=== PATIENT | female | born 1975 | race Caucasian/White ===

== ENCOUNTER → 2020-02-05 09:25 | Outpatient (BNVA) | payer OTHER, SELFPAY | PROVIDERS: PCP Internal Medicine; Referring Provider Internal Medicine; Visit Provider Dietitian, Registered | DX: Z76.89 Persons encountering health services in other specified circumstances (principal) ==

== ENCOUNTER → 2020-03-09 08:28 | Outpatient (BNVA) | payer OTHER, SELFPAY | PROVIDERS: PCP Internal Medicine; Visit Provider Physician Assistant | DX: Z76.89 Persons encountering health services in other specified circumstances (principal) ==

== ENCOUNTER 2020-05-19 07:43 | Outpatient (REF) | payer OTHER, SELFPAY ==
--- NOTE | 2020-05-19 07:47 | MM_ITS ---
EXAMINATION: MM SCREENING DIGITAL BREAST TOMOSYNTHESIS, BILATERAL CLINICAL INFORMATION: Screening. Asymptomatic. Family history breast cancer, mother. The lifetime risk of breast cancer based on the Tyrer-Cuzick Model is 21%. COMPARISON: Mammography: 03/19/2019, baseline. TECHNIQUE: Digital breast tomosynthesis is performed in both the craniocaudal and mediolateral oblique views along with computer-aided detection (CAD). Synthesized 2D images are generated from the tomosynthesis. FINDINGS: There are scattered areas of fibroglandular density (ACR BI-RADS breast composition Category b). There are no significant masses, abnormal calcifications, or other abnormalities. Parenchymal pattern is similar to prior exam. MM/MM tomosynthesis screening BI IMPRESSION: No mammographic evidence of malignancy. ASSESSMENT: BI-RADS 1: Negative RECOMMENDATION: 1. Routine annual mammography screening. 2. The lifetime risk of breast cancer based on the Tyrer-Cuzick Model is 21%. Additional annual adjunct screening with breast MRI may be of benefit in women with a risk score of 20% or greater. This patient's information was entered into a reminder system with a target due date for their next mammogram.
== END 2020-05-19 07:44 | disposition home or self-care (01) ==
LOC: HO.MAMMO 07:43
PROVIDERS: PCP Internal Medicine; Visit Provider Internal Medicine
DX: Z12.31 Encounter for screening mammogram for malignant neoplasm of breast (principal)
CPT/HCPCS: 77063; 77067

== ENCOUNTER 2020-06-08 11:26 | Outpatient (REF) | payer OTHER, SELFPAY ==
--- NOTE | 2020-06-08 | US_ITS ---
EXAMINATION: US THYROID CLINICAL INFORMATION: Nontoxic multinodular goiter. Follow up nodules. COMPARISON: Ultrasound soft tissue head/neck thyroid dated 06/10/2019 and 06/19/2018. TECHNIQUE: Linear transducer grayscale and color Doppler examination with attention to the region of the thyroid. FINDINGS: SIZE: Measurements of the thyroid lobes and nodules are given in sagittal, anteroposterior and transverse dimensions respectively. Right Thyroid Lobe: 4.9 x 2.1 x 1.8 cm, volume 9.5 mL. Previously 5.3 x 1.9 x 1.8 cm, volume 9.4 mL. Parenchyma: The gland echotexture is homogeneous. Thyroid vascularity is normal. Left Thyroid Lobe: 5.8 x 1.9 x 1.9 cm, volume 10.6 mL. Previously 5.6 x 2.1 x 1.8 cm, volume 11.3 mL. Parenchyma: The gland echotexture is homogeneous. Thyroid vascularity is normal. Isthmus: 0.5 cm in maximum AP dimension. Previously 0.5 cm. Estimated total number of nodules greater than or equal to 1 cm: 2. [facility] nodules are described as follows: 1. Location: Left superior. Size: 1.0 x 0.7 x 1.0 cm, volume 0.4 mL. Previously: 0.7 x 0.6 x 0.7 cm, volume of 0.2 mL. Nodule characteristics: Composition: Solid (2). Echogenicity: Hypoechoic (2). Shape: Not taller than wide (0). Margins: Smooth (0). Echogenic Foci: None (0). ACR TI-RADS total points: 4 ACR TI-RADS category: 4 Significant change in size (>/= 20% in 2 dimensions and minimal increase of 2 mm): Yes Change in features: No Change in ACR TI-RADS risk category: No 2. Location: Left mid. Size: 1.0 x 0.8 x 0.7 cm, volume 0.3 mL. Previously: 0.9 x 0.6 x 0.7 cm, volume 0.2 mL. Nodule characteristics: Composition: Solid (2). Echogenicity: Hyperechoic (1). Shape: Not taller than wide (0). Margins: Irregular (2). Echogenic Foci: Macrocalcifications (1). ACR TI-RADS total points: 6 ACR TI-RADS category: 4 Significant change in size (>/= 20% in 2 dimensions and minimal increase of 2 mm): No Change in features: No Change in ACR TI-RADS risk category: No 3. Location: Left mid. Size: 0.8 x 0.5 x 0.4 cm, volume 0.1 mL. Previously: 0.8 x 0.4 x 0.5 cm, volume 0.1 mL. Nodule characteristics: Composition: Solid (2). Echogenicity: Hyperechoic (1). Shape: Not taller than wide (0). Margins: Irregular (2). Echogenic Foci: Macrocalcifications (1). ACR TI-RADS total points: 6 ACR TI-RADS category: 4 Significant change in size (>/= 20% in 2 dimensions and minimal increase of 2 mm): No Change in features: No Change in ACR TI-RADS risk category: No NODES: No lymphadenopathy is seen in the tissue surrounding the thyroid gland. US/US thyroid IMPRESSION: Enlarged thyroid gland. There is interval increase in size in the hypoechoic nodule in the superior left lobe. The 2 calcified nodules in the left mid lobe do not appear changed. ACR TI-RADS RECOMMENDATIONS: Ultrasound-guided fine-needle aspiration, followup ultrasound, no further follow up. * TR1 (0 point) and TR 2 (2 points): No FNA or follow up * TR3 (3 points): FNA if more than or equal to 2.5 cm in maximum dimension, follow up in 1, 3 and 5 years if 1.5 to 2.4 cm in maximum dimension. * TR 4 (4-6 points): FNA if more than or equal to 1.5 cm in maximum dimension, follow up in 1, 2, 3 and 5 years if 1 to 1.4 cm in maximum dimension. * TR 5 (more than or equal to 7 points): FNA if more than or equal to 1 cm in maximum dimension, follow up every year for 5 years if 0.5 to 0.9 cm in maximum dimension. TR3, TR4 or TR5 nodules that are below the size threshold for follow up receive no follow up.
== END 2020-06-08 11:27 | disposition home or self-care (01) ==
LOC: HO.US 11:26
PROVIDERS: Visit Provider Internal Medicine Endocrinology, Diabetes & Metabolism
DX: E04.2 Nontoxic multinodular goiter (principal)
CPT/HCPCS: 76536

== ENCOUNTER 2020-07-26 15:48 | Outpatient (REF) | payer OTHER, SELFPAY ==
[2020-07-26 17:48] LABS: Free T4 (Free Thyroxine) 1.12 ng/dL (0.71-1.85); Thyroid Stimulating Hormone 0.77 uIU/mL (0.32-4.0)
== END 2020-07-26 15:49 | disposition home or self-care (01) ==
LOC: HO.LAB 15:48
PROVIDERS: PCP Internal Medicine; Visit Provider Internal Medicine Endocrinology, Diabetes & Metabolism
DX: E03.8 Other specified hypothyroidism (principal)
CPT/HCPCS: 36415; 84439; 84443

== ENCOUNTER → 2020-07-29 07:29 | Outpatient (BNVA) | payer OTHER, SELFPAY | PROVIDERS: PCP Internal Medicine; Visit Provider Internal Medicine Endocrinology, Diabetes & Metabolism ==

== ENCOUNTER 2020-09-27 07:39 | Outpatient (REF) | payer OTHER, SELFPAY ==
[2020-09-27 07:58] LABS: COVID-19 Test Negative (Negative)
== END 2020-09-27 07:40 | disposition home or self-care (01) ==
LOC: HO.EMPCOV 07:39
PROVIDERS: Visit Provider Internal Medicine
DX: Z20.822 Contact with and (suspected) exposure to COVID-19 (principal)
CPT/HCPCS: 36415; 87635; C9803

== ENCOUNTER → 2020-12-26 07:56 | Outpatient (BNVA) | payer OTHER, SELFPAY | PROVIDERS: PCP Internal Medicine; Visit Provider Advanced Practice Midwife ==

== ENCOUNTER 2021-04-14 14:58 | Outpatient (REF) | payer OTHER, SELFPAY ==
[2021-04-14 16:10] LABS: Free T4 (Free Thyroxine) 1.29 ng/dL (0.71-1.85); Thyroid Stimulating Hormone 0.67 uIU/mL (0.32-4.0)
== END 2021-04-14 14:59 | disposition home or self-care (01) ==
LOC: HO.LAB 14:58
PROVIDERS: PCP Internal Medicine; Visit Provider Internal Medicine Endocrinology, Diabetes & Metabolism
DX: E03.8 Other specified hypothyroidism (principal); E04.2 Nontoxic multinodular goiter; E06.3 Autoimmune thyroiditis
CPT/HCPCS: 36415; 84439; 84443

== ENCOUNTER 2021-05-11 12:52 | Outpatient (REF) | payer OTHER, SELFPAY ==
--- NOTE | ~2021-05-11 | US_ITS ---
EXAMINATION: US THYROID CLINICAL INFORMATION: Nontoxic multinodular goiter. COMPARISON: Ultrasound soft tissue head/neck thyroid dated 06/08/2020 and 06/10/2019. TECHNIQUE: Linear transducer grayscale and color Doppler examination with attention to the region of the thyroid. FINDINGS: SIZE: Measurements of the thyroid lobes and nodules are given in sagittal, anteroposterior and transverse dimensions respectively. Right Thyroid Lobe: 5.4 x 1.7 x 1.7 cm, volume 8.2 mL. Previously 4.9 x 2.1 x 1.8 cm, volume 9.5 mL. Parenchyma: The gland echotexture is homogeneous. Thyroid vascularity is normal. Left Thyroid Lobe: 5.1 x 1.7 x 1.7 cm, volume 7.6 mL. Previously 5.8 x 1.9 x 1.9 cm, volume 10.6 mL. Parenchyma: The gland echotexture is homogeneous. Thyroid vascularity is normal. Isthmus: 0.2 cm in maximum AP dimension. Previously 0.5 cm. Estimated total number of nodules greater than or equal to 1 cm: 1. Suppression Crew Leader nodules are described as follows: 1. Location: Left superior. Size: 1.1 x 0.8 x 0.9 cm, volume 0.4 mL. Previously: 1.0 x 0.7 x 1.0 cm, volume 0.4 mL. Nodule characteristics: Composition: Solid (2). Echogenicity: Hypoechoic (2). Shape: Not taller than wide (0). Margins: Ill-defined (0). Echogenic Foci: None (0). ACR TI-RADS total points: 4 Previous: 4 ACR TI-RADS category: 4 Previous: 4 Significant change in size (>/= 20% in 2 dimensions and minimal increase of 2 mm or 50% or greater increase in volume): No Change in features: No Change in ACR TI-RADS risk category: No 2. Location: Left mid. Size: 1.0 x 0.6 x 0.8 cm, volume 0.3 mL. Previously: 1.0 x 0.8 x 0.7 cm, volume 0.3 mL. Nodule characteristics: Composition: Solid (2). Echogenicity: Hyperechoic (1). Shape: Not taller than wide (0). Margins: Irregular (2). Echogenic Foci: Macrocalcifications (1). ACR TI-RADS total points: 6 Previous: 6 ACR TI-RADS category: 4 Previous: 4 Significant change in size (>/= 20% in 2 dimensions and minimal increase of 2 mm or 50% or greater increase in volume): No Change in features: No Change in ACR TI-RADS risk category: No 3. Location: Left inferior. Size: 0.6 x 0.5 x 0.5 cm, volume 0.1 mL. Previously: 0.8 x 0.5 x 0.4 cm. Nodules 3 and 4 were measured as one nodule on prior exam. Nodule characteristics: Composition: Solid (2). Echogenicity: Hyperechoic (1). Shape: Not taller than wide (0). Margins: Irregular (2). Echogenic Foci: Macrocalcifications (1). ACR TI-RADS total points: 6 ACR TI-RADS category: 4 Significant change in size (>/= 20% in 2 dimensions and minimal increase of 2 mm or 50% or greater increase in volume): No Change in features: No Change in ACR TI-RADS risk category: No 4. Location: Left inferior. Size: 0.4 x 0.3 x 0.4 cm, volume 0.03 mL. Previously: 0.8 x 0.5 x 0.4 cm. Nodules 3 and 4 measured as one nodule on prior exam. Nodule characteristics: Composition: Solid (2). Echogenicity: Hyperechoic (1). Shape: Not taller than wide (0). Margins: Ill-defined (0). Echogenic Foci: Macrocalcifications (1). ACR TI-RADS total points: 4 ACR TI-RADS category: 4 Significant change in size (>/= 20% in 2 dimensions and minimal increase of 2 mm or 50% or greater increase in volume): No Change in features: No Change in ACR TI-RADS risk category: No NODES: No lymphadenopathy is seen in the tissue surrounding the thyroid gland. US/US thyroid IMPRESSION: Stable appearance to the left thyroid nodules from most recent exam June 2020. ACR TI-RADS RECOMMENDATION REFERENCE: Ultrasound-guided fine-needle aspiration, followup ultrasound, no further follow up. * TR1 (0 point) and TR 2 (2 points): No FNA or follow up * TR3 (3 points): FNA if more than or equal to 2.5 cm in maximum dimension, followup ultrasound in 1, 3 and 5 years if 1.5 to 2.4 cm in maximum dimension. * TR4 (4-6 points): FNA if more than or equal to 1.5 cm in maximum dimension, followup ultrasound in 1, 2, 3 and 5 years if 1 to 1.4 cm in maximum dimension. * TR5 (more than or equal to 7 points): FNA if more than or equal to 1 cm in maximum dimension, followup ultrasound every year for 5 years if 0.5 to 0.9 cm in maximum dimension. * TR3, TR4 or TR5 nodules that are below the size threshold for follow up receive no follow up.
== END 2021-05-11 12:53 | disposition home or self-care (01) ==
LOC: HO.US 12:52
PROVIDERS: Visit Provider Internal Medicine Endocrinology, Diabetes & Metabolism
DX: E04.2 Nontoxic multinodular goiter (principal)
CPT/HCPCS: 76536

== ENCOUNTER → 2021-06-05 08:58 | Outpatient (BNVA) | payer OTHER, SELFPAY | PROVIDERS: PCP Internal Medicine; Visit Provider Orthopaedic Surgery ==

== ENCOUNTER → 2021-06-15 07:26 | Outpatient (BNVA) | payer OTHER, SELFPAY | PROVIDERS: PCP Internal Medicine; Visit Provider Internal Medicine ==

== ENCOUNTER 2021-06-21 08:00 | Outpatient (REF) | payer OTHER, SELFPAY ==
--- NOTE | ~2021-06-21 | MR_ITS ---
EXAMINATION: MR BRAIN WITHOUT AND WITH CONTRAST CLINICAL INFORMATION: Hypopituitarism. COMPARISON: There are no prior studies available comparison. TECHNIQUE: Multiplanar, multisequence MRI of the brain was obtained before and after the intravenous administration of 5 mL Gadavist. FINDINGS: No abnormal focus of decreased differential enhancement is seen within the pituitary gland. The pituitary gland parenchyma appears relatively thin. The infundibulum measures approximately 3.4 mm AP, just superior to the pituitary gland, which is mildly thickened. The infundibulum is in the midline. The cavernous sinuses opacify symmetrically. The internal carotid artery flow-voids are maintained. The optic chiasm is normal. No suprasellar soft tissue abnormality is seen. The sella turcica is normal. No diffusion abnormalities are identified to suggest an acute or subacute infarct. No mass effect or midline shift is seen. The ventricles are normal in size. Brain parenchymal signal is unremarkable. No extra-axial fluid collections are seen. The brainstem appears normal. On postcontrast imaging, there is no abnormal parenchymal or leptomeningeal enhancement. There is no evidence of acute hemorrhage. The cerebellar tonsillar tips extend approximately 4.4 mm below the level of foramen magnum, but have normal contours bilaterally. Marrow signal and midline structures are normal. The major intracranial flow-voids at the level of the mo[place] of [place] are preserved. There is a small cyst in the high nasopharynx posteriorly on the right. The dural venous sinus flow-voids are maintained. The mastoid air cells and the paranasal sinuses are well-aerated. The nasal septum is significantly deviated to the left. MR/MR head/brain wo/w con IMPRESSION: 1. There are no acute bleeds or infarcts. There are no intracranial masses or areas of abnormal enhancement. The cerebellar tonsillar tips extend 4.4 mm below the level of foramen magnum but have contours bilaterally. 2. The pituitary gland appears relatively thin. The infundibulum is mildly thickened, which is nonspecific and may be consistent with inflammation or an infiltrative process.
== END 2021-06-21 08:01 | disposition home or self-care (01) ==
LOC: HO.MRI 08:00
PROVIDERS: Visit Provider Internal Medicine
DX: E23.0 Hypopituitarism (principal)
CPT/HCPCS: 70553; A9585

== ENCOUNTER 2021-07-01 11:10 | Outpatient (REF) | payer OTHER, SELFPAY ==
[2021-07-01 11:31] LABS: Appearance Urine HAZY; Color Urine YELLOW; Glucose Urine UA NEG (NEG); Leukocyte Esterase Urine 1+ (NEG); Nitrite Urine POS (NEG); Specific Gravity - Urine 1.025 (1.005-1.025); UACC Culture Trigger YES; Urine Blood 1+ (NEG); Urine Ketones NEG (NEG); Urine Protein TRACE MG/DL (NEG-TRACE)
[2021-07-01 11:44] LABS: Bacteria Urine 3+ /LPF; Mucus Urine TRACE /LPF; Squamous Epithelial Cell Urine TRACE /LPF; WBC Urine 50-75 /HPF (0-4)
== END 2021-07-01 11:11 | disposition home or self-care (01) ==
LOC: HO.LNP 11:10
PROVIDERS: Visit Provider Physician Assistant Medical
DX: R30.0 Dysuria (principal)
CPT/HCPCS: 81001; 87086; 87088; 87186

== ENCOUNTER 2021-07-05 12:06 | Outpatient (REF) | payer OTHER, SELFPAY ==
--- NOTE | ~2021-07-05 | MM_ITS ---
EXAMINATION: BONE DENSITOMETRY CLINICAL INDICATION: Long-term, current, use of 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. Age 46. COMPARISON: None (current study represents initial baseline exam). TECHNIQUE: Using a [employer]OT[employer] DXA System (software version: 13.1) manufactured by [employer], dual-energy x-ray absorptiometry was performed of the lumbar spine, left hip, and left forearm radius 33%. The images are of good technical quality. Based on ISCD (International Society for Clinical Densitometry) standards of reporting, Z-scores instead of T-scores are reported in this premenopausal woman. Summary results are attached. FINDINGS: AP SPINE L1-L2 (excluding L3 and L4): The data of L1-L4 has been changed to exclude the L3 and L4 vertebral bodies, because probable mild degenerative changes at these levels may cause overestimation of lumbar spine density. BMD 1.094 g/cm2, T-score -0.6, Z-score -1.8, Z-score within expected range for age. LEFT FEMUR, NECK: BMD 0.845 g/cm2, T-score -1.4, Z-score -1.6, Z-score within expected range for age. LEFT FEMUR, TOTAL: BMD 0.976 g/cm2, T-score -0.3, Z-score -0.8, Z-score within expected range for age. LEFT FOREARM RADIUS 33%: BMD 0.882 g/cm2, T-score 0.1, Z-score 0.1, Z-score within expected range for age. IDENTIFIED RISK FACTORS: Secondary osteoporosis. HISTORY OF FRACTURE: None listed. MEDICATIONS: Calcium supplements or multivitamin, vitamin D, ERT/SERMS. MM/XR DEXA appendicular skeleton IMPRESSION: 1. DIAGNOSIS: Based on the lowest Z-score value of -1.8 in the lumbar spine, the patient's bone density is within the expected range for age. 2. 10-YEAR FRACTURE RISK PREDICTION, FRAX: Not performed in this perimenopausal patient. 3. Treatment Recommendations: NOF guidelines recommend consideration for treatment in postmenopausal women and men age 50 and older presenting with the following: -A hip or vertebral (clinical or morphometric) fracture. -T-score less than or equal to -2.5 at the femoral neck or spine after appropriate evaluation to exclude secondary causes. -Low bone mass at the hip or spine and a 10-year fracture probability by FRAX of greater than or equal to 3% for hip fracture or greater than or equal to 20% for major osteoporotic fracture based on the [place] adapted WHO algorithm. 4. Other Recommendations: All treatment decisions require clinical judgment and consideration of individual patient factors, including patient preferences, comorbidities, previous drug use, risk factors not captured in the FRAX model (e.g. frailty, falls, vitamin D deficiency, increased bone turnover, interval significant decline in bone density) and possible under or overestimation of fracture risk by FRAX. FUTURE SCAN RECOMMENDATION: People with diagnosed cases of osteoporosis or at high risk for fracture should have regular bone mineral density tests. For patients eligible for Medicare, routine testing is allowed once every 2 years. The testing frequency can be increased to one year for patients who have rapidly progressing disease, those who are receiving or discontinuing medical therapy to restore bone mass, or have additional risk factors.
--- NOTE | ~2021-07-05 | MM_ITS ---
EXAMINATION: MM SCREENING DIGITAL BREAST TOMOSYNTHESIS, BILATERAL CLINICAL INFORMATION: Screening. Asymptomatic. Family history breast cancer, mother. The lifetime risk of breast cancer based on the Tyrer-Cuzick Model is 23%. COMPARISON: Mammography: 05/19/2020, 03/19/2019 (baseline) TECHNIQUE: Digital breast tomosynthesis is performed in both the craniocaudal and mediolateral oblique views along with computer-aided detection (CAD). Synthesized 2D images are generated from the tomosynthesis. FINDINGS: There are scattered areas of fibroglandular density (ACR BI-RADS breast composition Category b). Right breast has macrolobulated nodule 0.9 x 0.6 cm anterior 4:00 position with smooth margins representing change from prior studies, possibly a cyst. Patient will be recalled for additional imaging to further characterize. Remainder right breast is unremarkable. The left breast shows no interval mass or architectural abnormality. Neither breast shows abnormal calcifications. The axilla and skin contours are unremarkable. MM/MM tomosynthesis screening BI IMPRESSION: 1. Right: Smooth nodule anterior 4:00 position 0.9 cm, possibly a cyst. 2. Left: No mammographic evidence of malignancy. ASSESSMENT: BI-RADS 0: Incomplete - Need Additional Imaging Evaluation RECOMMENDATION: 1. Targeted ultrasound right breast. 2. Radiology department staff will contact the patient for additional imaging. This patient's information was entered into a reminder system with a target due date for their next mammogram.
== END 2021-07-05 12:07 | disposition home or self-care (01) ==
LOC: HO.MAMMO 12:06
PROVIDERS: Visit Provider Internal Medicine
DX: Z12.31 Encounter for screening mammogram for malignant neoplasm of breast (principal); Z13.820 Encounter for screening for osteoporosis; Z79.3 Long term (current) use of 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
CPT/HCPCS: 77063; 77067; 77081

== ENCOUNTER 2021-07-07 14:22 | Outpatient (REF) | payer OTHER, SELFPAY ==
--- NOTE | ~2021-07-07 | US_ITS ---
EXAMINATION: US DIAGNOSTIC ULTRASOUND BREAST, RIGHT CLINICAL INFORMATION: Recall from screening for smooth macrolobulated nodule anterior 4:00 right breast measuring 0.9 x 0.6 cm. Family history breast cancer, mother. TC score 23%. COMPARISON: Mammography 07/05/2021. TECHNIQUE: Ultrasound right breast is targeted to the medial breast. Grayscale imaging and color Doppler are performed without and with harmonics. FINDINGS: There is a complicated cyst 4:00 position 4 cm from nipple corresponding to finding on mammography and measuring 0.8 x 0.6 x 0.6 cm. There are avascular internal septations. No peripheral or internal color flow. No solid mass or architectural abnormality or focal duct ectasia. Results are discussed with the patient at time of visit. US/US breast RT limited IMPRESSION: Complicated cyst anterior medial breast 0.8 cm with avascular internal septations. ASSESSMENT: BI-RADS 3: Probably Benign RECOMMENDATION: 1. Targeted right breast ultrasound in 6 months. 2. The lifetime risk of breast cancer based on the Tyrer-Cuzick Model is 23%. Additional annual adjunct screening with breast MRI may be of benefit in women with a risk score of 20% or greater. This patient's information was entered into a reminder system with a target due date for their next mammogram.
== END 2021-07-07 14:23 | disposition home or self-care (01) ==
LOC: HO.MAMMO 14:22
PROVIDERS: Visit Provider Internal Medicine
DX: N63.14 Unspecified lump in the right breast, lower inner quadrant (principal)
CPT/HCPCS: 76642

== ENCOUNTER 2021-07-27 08:00 | Outpatient (RCR) | payer OTHER, SELFPAY ==
--- NOTE | 2021-06-06 11:58 | MHC.PT.EP ---
[facility] [place] Office [place] Office [place] Office [address] [place] [address] [phone] F: [phone] F: [phone] F: [phone] F: [phone] Physical Therapy Plan of Care Date of Evaluation: Date of Surgery: NA Diagnosis: Impingement syndrome of R shoulder Assessment: Arlen is a 46 year old female with a past h/o of R shoulder pain was referred to PT for impingement syndrome of R shoulder . She was in PT about 2 years back and had 90% resolution of pain. Her symptoms however have returned. She denies any trauma or falls. On PT examination she presents with intermittent pain of 8/10 present with carrying heavy weights, moving shoulder over head, R SL and reaching across shoulder, decreased R shoulder ROM, decreased muscle strength, TTP over R AC joint, bicep and supraspinatus tendon, and altered posture. Due to these impairments she has difficulty performing her ADLS and caring for her 3 year old son. She would benefit from skilled PT to address the aforementioned impairments and improve tolerance to functional activities. Frequency and Duration: The patient will be seen 2/week for 5 weeks. Short Term Goals: 1. Pt will have 50% decrease in pain which will enable her to sleep on R side through the night in 2 weeks. 2. Pt will be able to move her shoulder through all planes of motion without pain which will enable her to dress her upper body without pain in 3 weeks. Detention Goals: 1. Pt will demonstrate an increase in muscle strength by 1 grade which will enable her to carry heavy weights and pick her son up without pain in 4 weeks. 2. Pt will be independent with [facility] for symptom management and maintenance following d/c in 5 weeks. Treatment Plan: Modalities to reduce pain, spasms and effusion. Manual therapy to restore motion and function. Therapeutic exercise to improve strength and flexibility. Neuromuscular re-education for posture and balance. Therapeutic activities to return to functional activities of daily living. Electronically signed by: Christina Courtney PT DPT Please sign and return to therapist. Thank you for your referral.
--- NOTE | 2021-07-27 08:49 | MHC.PT.DC ---
[facility] [place] Office [place] Office [place] Office [address] [place] [address] [phone] F: [phone] F: [phone] F: [phone] F: [phone] Physical Therapy Discharge Report Diagnosis: Impingement syndrome of R shoulder Date of Surgery: NA Date of Evaluation: 06/06/21 Date of Discharge: 07/27/21 Treatments to Date: 9 Cancellations to Date: 0 No Shows to Date: 0 Discharge Status: Achieved Goals Improved Function Discharge Summary: Nai continued to arrive with no pain. She has returned to PLOF. She has achieved all goals set for her. She is therefore being d/c from therapy today. Electronically signed by: Christina Courtney PT DPT Please sign and return to therapist. Thank you for your referral.
== END 2021-07-27 08:50 | disposition home or self-care (01) ==
LOC: HO.PT 08:00
PROVIDERS: PCP Internal Medicine; Visit Provider Orthopaedic Surgery
DX: M75.41 Impingement syndrome of right shoulder (principal)
CPT/HCPCS: 97110; 97140; 97161; 97530

== ENCOUNTER 2021-08-10 07:01 | Outpatient (REF) | payer OTHER, SELFPAY ==
[2021-08-10 08:20] LABS: Alanine Aminotransferase 20 U/L (0-31); Albumin Level 4.1 g/dL (3.5-5.0); Alkaline Phosphatase 59 U/L (39-117); Anion Gap 12 (12-20); Aspartate Amino Transferase 18 U/L (5-31); Bilirubin Total 0.6 mg/dL (0.0-1.0); Blood Urea Nitrogen 17 mg/dL (9-16); Calcium 9.1 mg/dL (8.4-10.2); Carbon Dioxide 24 mmol/L (22-29); Chloride 108 mmol/L (96-108); Cholesterol 212 mg/dL; Estimated Glomerular Filt Rate > 60; Glucose Random 84 mg/dL (60-115); HDL Cholesterol 53 mg/dL; LDL Cholesterol Calculated 144 mg/dl; Potassium 4.6 mmol/L (3.3-5.1); Sodium 139 mmol/L (135-145); Total Protein 7.1 g/dL (6.5-8.0); Triglycerides 75 mg/dL
[2021-08-10 08:44] LABS: Thyroid Stimulating Hormone 0.59 uIU/mL (0.32-4.0)
[2021-08-10 08:52] LABS: Glucose Fasting 84 mg/dL (60-99)
[2021-08-10 09:29] LABS: Glucose 1 Hour 136 mg/dL
[2021-08-10 09:39] LABS: Cortisol Random 16.8 ug/dL
[2021-08-10 10:34] LABS: Glucose 2 Hour 106 mg/dL
[2021-08-10 12:07] LABS: Osmolality, Serum 298 mosm/kg (281-305)
[2021-08-11 08:11] LABS: Follicle Stimulating Hormone <0.7 mIU/mL; Lutenizing Hormone 0.2 mIU/mL; Prolactin 8.6 ng/mL; Sex Hormone Binding Globulin 87 nmol/L (17-124)
[2021-08-11 08:41] LABS: Triiodothyronine T3 Total 155 ng/dL (76-181)
[2021-08-11 08:57] LABS: LDL Cholesterol Direct 147 mg/dL (<100)
[2021-08-11 18:32] LABS: Adrenocorticotropic Hormone 24 pg/mL (6-50)
[2021-08-15 13:11] LABS: IGF-1 (Somatomedin C) 119 ng/mL (52-328); IGF-1 Z Score (Female) -0.4 SD (-2.0 - +2.0)
[2021-08-24 22:17] LABS: Estradiol Free 0.13 pg/mL; Estradiol, Ultrasensitive 9 pg/mL
== END 2021-08-10 07:02 | disposition home or self-care (01) ==
LOC: HO.LAB 07:01
PROVIDERS: PCP Internal Medicine; Visit Provider Internal Medicine
DX: E23.0 Hypopituitarism (principal); E04.2 Nontoxic multinodular goiter; E78.5 Hyperlipidemia, unspecified; E66.9 Obesity, unspecified
CPT/HCPCS: 36415; 80053; 80061; 82024; 82533; 82670; 82681; 83001; 83002; 83721; 83930; 84146; 84270; 84305; 84439; 84443; 84480

== ENCOUNTER 2021-08-29 07:55 | Outpatient (REF) | payer OTHER, SELFPAY ==
--- NOTE | ~2021-08-29 | MR_ITS ---
EXAMINATION: MR BREAST WITHOUT AND WITH CONTRAST, BILATERAL CLINICAL INFORMATION: 46-year-old for high-risk screening, lifetime risk greater than 23% with complicated cyst right breast. COMPARISON: Correlation to mammogram of 07/05/2021 and ultrasound of 07/07/2021. TECHNIQUE: Imaging was performed with a dedicated breast coil. Prior to the administration of contrast, bilateral axial T1- and bilateral axial T2-weighted sequences were obtained. After the uneventful administration of?10 mL of Gadavist, dynamic contrast-enhanced VIBRANT series through the breasts in the axial plane were performed. Subtracted images were performed and reviewed. A delayed sagittal sequence through both breasts was acquired. Additionally, CAD post-processing, including maximum intensity projections, 3-D reconstructions and kinetic analysis, were performed an independent workstation and reviewed by the interpreting radiologist is a portion of this exam. FINDINGS: There is mild background enhancement. LEFT BREAST: No suspicious mass-like or [id number] enhancement. No abnormal skin thickening or nipple retraction. No abnormal architectural distortion. Review of the T2-weighted images demonstrates no fibrocystic changes or dilated ducts. Review of kinetic images reveals no additional findings. RIGHT BREAST: There is an oval T2 bright rim-enhancing mass in the 4 o'clock position 3 cm from the nipple, measuring 0.6 cm. This corresponds to the complicated cyst noted on mammography and ultrasound. There are no areas of mass or non-mass assessment suspicious of malignancy. There are no secondary signs of malignancy such as nipple inversion or duct enhancement. There are no additional findings on T2-weighted imaging or kinetic curve analysis. There is no suspicious internal mammary chain or axillary adenopathy. Limited views of the chest and abdomen are unremarkable. MR/MR breast BI wo/w con IMPRESSION: Right breast with oval T2 bright rim-enhancing mass 4 o'clock 3 cm from the nipple, corresponding to the complicated cyst noted on ultrasound and mammography. No MR findings suspicious of malignancy. ASSESSMENT: LEFT BREAST: BI-RADS 1-Negative. RIGHT BREAST: BI-RADS 2-Benign. RECOMMENDATIONS: A six-month followup right breast ultrasound has been recommended for the complicated cyst. Routine mammographic imaging as per most recent study. MRI as per high-risk protocol.
== END 2021-08-29 07:56 | disposition home or self-care (01) ==
LOC: HO.MRI 07:55
PROVIDERS: Visit Provider Internal Medicine
DX: N63.14 Unspecified lump in the right breast, lower inner quadrant (principal)
CPT/HCPCS: 77049; A9585

== ENCOUNTER → 2021-10-12 08:54 | Outpatient (BNVA) | payer OTHER, SELFPAY | PROVIDERS: PCP Internal Medicine; Visit Provider Dietitian, Registered | DX: E78.5 Hyperlipidemia, unspecified (principal); E66.9 Obesity, unspecified; Z68.41 Body mass index [BMI] 40.0-44.9, adult | CPT/HCPCS: 97802 ==

== ENCOUNTER → 2021-12-13 09:23 | Outpatient (BNVA) | payer OTHER, SELFPAY | PROVIDERS: PCP Internal Medicine; Visit Provider Dietitian, Registered | DX: E66.9 Obesity, unspecified (principal); E78.5 Hyperlipidemia, unspecified | CPT/HCPCS: 97803 ==

== ENCOUNTER 2021-12-14 08:53 | Outpatient (REF) | payer OTHER, SELFPAY ==
--- NOTE | 2021-12-14 09:17 | PM.OP ---
Brief Operative Note Date of Service: 12/14/21 Pre-op diagnosis: Multinodular Thyroid Procedure: EXAMINATION: US THYROID CLINICAL INFORMATION: Multinodular Thyroid COMPARISON: Prior TECHNIQUE: Linear transducer ibanez-scale and color Doppler examination with attention to the region of the thyroid. FINDINGS: SIZE: Measurements of the thyroid lobes and nodules are given in sagittal, anteroposterior and transverse dimensions respectively. Right Thyroid Lobe: 2.0 x 5.6 x 1.8 cm, volume 10.3 mL. Parenchyma: The gland echotexture is diffusely heterogenous. Thyroid vascularity is mildly increased. Left Thyroid Lobe: 2.0 x 6.0 x 2.1 cm, volume 13 mL. Parenchyma: The gland echotexture is diffusely heterogenous. Thyroid vascularity is mildly increased. Isthmus: 0.3 cm in maximum AP dimension. NODES: No lymph nodes were assessed during today's visit. 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 No true thyroid nodules, only pseudonodules, with one macrocalcification present within the L lobe. Surgeon: Niurka Herrera, DO Was an Independent Jeweler used for this Procedure?: No Estimated blood loss (mL): 0
== END 2021-12-14 08:54 | disposition home or self-care (01) ==
LOC: HO.US 08:53
PROVIDERS: Visit Provider Internal Medicine
DX: E04.2 Nontoxic multinodular goiter (principal)
CPT/HCPCS: 76536

== ENCOUNTER 2021-12-29 07:09 | Outpatient (REF) | payer OTHER, SELFPAY ==
[2021-12-29 08:20] LABS: Free T4 (Free Thyroxine) 1.19 ng/dL (0.71-1.85); Thyroid Stimulating Hormone 1.69 uIU/mL (0.32-4.0)
== END 2021-12-29 07:10 | disposition home or self-care (01) ==
LOC: HO.LAB 07:09
PROVIDERS: PCP Internal Medicine; Visit Provider Internal Medicine
DX: E06.3 Autoimmune thyroiditis (principal); E03.8 Other specified hypothyroidism
CPT/HCPCS: 36415; 84439; 84443

== ENCOUNTER 2022-01-09 15:24 | Outpatient (REF) | payer OTHER, SELFPAY ==
--- NOTE | ~2022-01-09 | MM_ITS ---
EXAMINATION: MM DIAGNOSTIC DIGITAL BREAST TOMOSYNTHESIS, RIGHT US DIAGNOSTIC ULTRASOUND BREAST, RIGHT CLINICAL INFORMATION: Short interval follow-up probable benign complicated cyst 4:00 anterior right breast. Family history breast cancer, mother. TC score 29%. COMPARISON: MR breasts 08/29/2021, mammography 07/05/2021 (BI-RADS 0), 05/19/2020, 03/19/2019; targeted right breast ultrasound 07/07/2021. TECHNIQUE: Ultrasound right breast is targeted to the anterior lower inner quadrant. Grayscale imaging and color Doppler are performed without and with harmonics. Digital breast tomosynthesis is performed in both the craniocaudal and mediolateral oblique views along with computer-aided detection (CAD). Synthesized 2D images are generated from the tomosynthesis. FINDINGS: Ultrasound, right: The complicated cyst for follow-up appear decreased in size measuring approximately 6 x 3 mm. There are some fine avascular internal septations. Prior measurement is 8 x 6 mm. There is no interval new cystic or solid mass or architectural abnormality. Mammography, right: There are scattered areas of fibroglandular density (ACR BI-RADS breast composition Category b). The mammography confirms that the finding for follow-up is moderately decreased in size. There is no interval new dominant mass or architectural abnormality or abnormal calcifications. The skin contours are smooth. Results are discussed with the patient at time of visit. Patient is due for routine bilateral mammography in 6 months which will be performed as a diagnostic study. MM/MM tomosynthesis diagnostic RT IMPRESSION: The complicated cyst for follow-up is decreased in size on both ultrasound and mammography. ASSESSMENT: BI-RADS 3: Probably Benign RECOMMENDATION: Diagnostic mammography at time of annual bilateral exam, due in 6 months. This patient's information was entered into a reminder system with a target due date for their next mammogram.
== END 2022-01-09 15:25 | disposition home or self-care (01) ==
LOC: HO.MAMMO 15:24
PROVIDERS: PCP Internal Medicine; Visit Provider Internal Medicine
DX: N63.14 Unspecified lump in the right breast, lower inner quadrant (principal)
CPT/HCPCS: 76642; 77061; 77065

== ENCOUNTER 2022-06-14 07:53 | Outpatient (REF) | payer OTHER, SELFPAY ==
[2022-06-14 09:46] LABS: Alanine Aminotransferase 14 U/L (0-31); Alkaline Phosphatase 58 U/L (39-117); Anion Gap 14 (12-20); Aspartate Amino Transferase 17 U/L (5-31); Bilirubin Total 0.6 mg/dL (0.0-1.0); Blood Urea Nitrogen 14 mg/dL (9-16); Calcium 8.8 mg/dL (8.4-10.2); Carbon Dioxide 24 mmol/L (22-29); Chloride 107 mmol/L (96-108); Estimated Glomerular Filt Rate > 60; Glucose Random 77 mg/dL (60-115); Phosphorus 2.7 mg/dL (2.7-4.5); Potassium 4.5 mmol/L (3.3-5.1); Sodium 140 mmol/L (135-145); Total Protein 6.8 g/dL (6.5-8.0)
[2022-06-14 09:53] LABS: Free T4 (Free Thyroxine) 1.17 ng/dL (0.71-1.85); Thyroid Stimulating Hormone 1.34 uIU/mL (0.32-4.0); Vitamin D 25-OH Total 34.7 ng/mL (>30)
[2022-06-16 03:53] LABS: Triiodothyronine T3 Total 153 ng/dL (76-181)
[2022-06-18 13:14] LABS: Calcium (PTHI) 8.9 mg/dL (8.6-10.2); PTHI 50 pg/mL (16-77)
== END 2022-06-14 07:54 | disposition home or self-care (01) ==
LOC: HO.LAB 07:53
PROVIDERS: PCP Internal Medicine; Visit Provider Internal Medicine
DX: E03.8 Other specified hypothyroidism (principal); E06.3 Autoimmune thyroiditis; M85.80 Other specified disorders of bone density and structure, unspecified site; E55.9 Vitamin D deficiency, unspecified; E04.2 Nontoxic multinodular goiter
CPT/HCPCS: 36415; 80053; 82306; 83970; 84100; 84439; 84443; 84480

== ENCOUNTER → 2022-06-18 09:03 | Outpatient (BNVA) | payer OTHER, SELFPAY | PROVIDERS: PCP Internal Medicine; Visit Provider Internal Medicine | DX: Z13.89 Encounter for screening for other disorder (principal) ==

== ENCOUNTER 2022-06-22 07:37 | Outpatient (REF) | payer OTHER, SELFPAY ==
[2022-06-22 09:12] LABS: Cholesterol 233 mg/dL; HDL Cholesterol 61 mg/dL; LDL Cholesterol Calculated 154 mg/dl; Triglycerides 94 mg/dL
[2022-06-24 15:23] LABS: LDL Cholesterol Direct 162 mg/dL (<100)
== END 2022-06-22 07:38 | disposition home or self-care (01) ==
LOC: HO.LAB 07:37
PROVIDERS: PCP Internal Medicine; Visit Provider Internal Medicine
DX: E78.5 Hyperlipidemia, unspecified (principal)
CPT/HCPCS: 36415; 80061; 83721

== ENCOUNTER 2022-06-28 13:42 | Outpatient (REF) | payer OTHER, SELFPAY ==
--- NOTE | 2022-06-28 08:15 | EMG_ITS ---
Bilateral median and ulnar motor and sensory studies were performed. Bilateral radial sensory studies were performed and paraspinal muscles were tested with a needle. IMPRESSION: 1. Mild bilateral median neuropathy across carpal tunnel. 2. Mild bilateral ulnar neuropathy across cubital tunnel. 3. Left Telly-Victor M anastomosis, a normal variant. MD ARAM Glasgow/DEVYN / [id number]
== END 2022-06-28 13:43 | disposition home or self-care (01) ==
LOC: HO.NEURO 13:42
PROVIDERS: PCP Internal Medicine; Visit Provider Orthopaedic Surgery
DX: R20.2 Paresthesia of skin (principal); R20.0 Anesthesia of skin
CPT/HCPCS: 95886; 95911

== ENCOUNTER → 2022-07-18 09:25 | Outpatient (BNVA) | payer OTHER, SELFPAY | PROVIDERS: PCP Internal Medicine; Visit Provider Orthopaedic Surgery | DX: Z13.89 Encounter for screening for other disorder (principal) ==

== ENCOUNTER 2022-07-31 10:53 | Outpatient (REF) | payer OTHER, SELFPAY ==
--- NOTE | ~2022-07-31 | MM_ITS ---
EXAMINATION: MM DIAGNOSTIC DIGITAL BREAST TOMOSYNTHESIS, BILATERAL CLINICAL INFORMATION: Due for yearly. Also follow-up probable benign complicated cyst 4:00 anterior right breast, decreased on prior follow-up exam. Family history breast cancer, mother, paternal aunt. The lifetime risk of breast cancer based on the Tyrer-Cuzick Model is 24%. COMPARISON: Bilateral mammography exams, most recent 01/09/2022, bilateral breast MRI for 2621, right breast ultrasound 01/09/2022, 07/07/2021. TECHNIQUE: Digital breast tomosynthesis is performed in both the craniocaudal and mediolateral oblique views along with computer-aided detection (CAD). Synthesized 2D images are generated from the tomosynthesis. FINDINGS: There are scattered areas of fibroglandular density (ACR BI-RADS breast composition Category b). The nodularity for follow-up anterior 4:00 right breast is no longer demonstrated. Neither breast shows significant mass or architectural abnormality or developing density. No abnormal calcifications. The axilla and skin contours are unremarkable. Results are discussed with the patient at time of visit. MM/MM tomosynthesis diagnostic BI IMPRESSION: -No mammographic evidence of malignancy. ASSESSMENT: BI-RADS 2: Benign RECOMMENDATION: -Routine annual mammography screening. -The lifetime risk of breast cancer based on the Tyrer-Cuzick Model is 24%. Additional annual adjunct screening with breast MRI may be of benefit in women with a risk score of 20% or greater. This patient's information was entered into a reminder system with a target due date for their next mammogram.
== END 2022-07-31 10:54 | disposition home or self-care (01) ==
LOC: HO.MAMMO 10:53
PROVIDERS: PCP Internal Medicine; Visit Provider Internal Medicine
DX: N60.01 Solitary cyst of right breast (principal)
CPT/HCPCS: 77062; 77066

== ENCOUNTER 2022-08-16 08:31 | Day surgery (SDC) | payer OTHER, SELFPAY ==
[2022-08-15 13:11] VITALS: BMI 42.1
[2022-08-16 08:43] VITALS: BP 188/41; PULSE 78; RESP 18; TEMP 36.1; O2SAT 98
[2022-08-16 10:53] VITALS: BP 139/83; PULSE 100; RESP 18; O2SAT 99
--- NOTE | 2022-08-16 11:52 | MHC.SHP ---
Pre-Procedural Eval Section A Date of Service: 08/16/22 The patient is an INPATIENT: No Changes since office visit: No Cold of Flu in the past 2 weeks, No New Medical Problems, No Changes in Medication and No Patient answered all questions The History & Physical has been completed within 30 days and I have reviewed it.: Yes Section B Chief Complaint: Carpal tunnel syndrome, left upper limb Allergies: Allergies Allergy/AdvReac Type Severity Reaction Status Date / Time oxycodone Allergy Unknown itchy Verified 07/18/22 09:41 penicillin V Allergy Unknown rash Verified 07/18/22 09:41 Sulfa (Sulfonamide Allergy Unknown rash Verified 07/18/22 09:41 Antibiotics) Plan I have reviewed the history and physical and performed a pertinent physical examination on my patient. No changes have occurred unless specified. Time Spent With Patient Time: Total time managing care of this patient today ____ minutes.
--- NOTE | 2022-08-16 11:53 | W.PM.OPN ---
Operative Note Operative Note Date of Service: 08/16/22 Narrative: Preop diagnosis: 1. left Carpal tunnel syndrome Postop diagnosis: same Procedure: 1. left Carpal tunnel release Surgeon: Tabitha Clark MD Anesthesia: local block using 1% lidocaine with epinephrine Findings: Thickened transverse carpal ligament. EBL: Less than 5 mL Specimens: None Complications: None Disposition: Brought to recovery room in stable condition Plan: Follow-up for 10-14 days for wound check and suture removal Indications: The patient is 47 years old, with left carpal tunnel syndrome that has been unresponsive to nonoperative management. The risks and benefits of operative treatment including but not limited to risk of damage to blood vessels, nerves, tendons, infection, persistent pain, persistent symptoms, or possible need for additional surgery were discussed with the patient and the patient wishes to proceed with surgery. Procedure: Once consent was obtained a local block was performed using a combination of 1% lidocaine with epinephrine. The patient was then brought back to the operating suite and placed on the operative table in supine position. The left upper extremity was prepped and draped in a standard surgical fashion. Once assured that we had a good block, a 2.0 cm longitudinal incision was made centered over the carpal tunnel. The incision was made through the skin to the subcutaneous tissues using a #15 blade. Dissection was made down to the level of the transverse carpal ligament with care being taken to protect the palmar cutaneous nerve. Once the transverse carpal ligament was clearly visualized, a longitudinal incision was made in the transverse carpal ligament 1st using a #15 blade, then using tenotomy scissors under direct visualization. Care was taken to look for and protect the motor branch of the median nerve when seen in this area. Once satisfied with our carpal tunnel release the wound was copiously irrigated with normal saline and hemostasis was obtained with a brief period of local pressure. The skin edges were reapproximated with some 5.0 nylon suture material and a sterile dressing was applied. The patient appears to have tolerated the procedure well and with no complications. All digits were well vascularized at the conclusion of the case.
== END 2022-08-16 11:16 | disposition home or self-care (01) ==
PROVIDERS: PCP Internal Medicine; Visit Provider Orthopaedic Surgery
PROC: (CPT 64721; principal; 2022-08-16 09:30)
DX: G56.02 Carpal tunnel syndrome, left upper limb (principal); Z88.0 Allergy status to penicillin; Z88.2 Allergy status to sulfonamides; Z88.5 Allergy status to narcotic agent
CPT/HCPCS: 64721; J0171

== ENCOUNTER → 2022-08-29 14:20 | Outpatient (BNVA) | payer OTHER, SELFPAY | PROVIDERS: PCP Internal Medicine; Visit Provider Orthopaedic Surgery | DX: Z13.89 Encounter for screening for other disorder (principal) ==

== ENCOUNTER 2022-10-16 07:38 | Outpatient (REF) | payer OTHER, SELFPAY ==
[2022-10-16 09:33] LABS: Cholesterol 224 mg/dL; HDL Cholesterol 62 mg/dL; LDL Cholesterol Calculated 143 mg/dl; Triglycerides 99 mg/dL
[2022-10-16 09:50] LABS: Free T4 (Free Thyroxine) 1.05 ng/dL (0.71-1.85); Thyroid Stimulating Hormone 0.91 uIU/mL (0.32-4.0)
[2022-10-17 14:03] LABS: LDL Cholesterol Direct 151 mg/dL (<100)
== END 2022-10-16 07:39 | disposition home or self-care (01) ==
LOC: HO.LAB 07:38
PROVIDERS: PCP Internal Medicine; Visit Provider Internal Medicine
DX: E03.8 Other specified hypothyroidism (principal); E04.2 Nontoxic multinodular goiter; E06.3 Autoimmune thyroiditis; E78.5 Hyperlipidemia, unspecified
CPT/HCPCS: 36415; 80061; 83721; 84439; 84443

== ENCOUNTER → 2022-10-19 08:53 | Outpatient (BNVA) | payer OTHER, SELFPAY | PROVIDERS: PCP Internal Medicine; Visit Provider Internal Medicine ==

== ENCOUNTER 2023-02-01 12:47 | Outpatient (AMB) | payer OTHER, SELFPAY ==
[2023-02-01 12:54] VITALS: BP 136/72; PULSE 102; O2SAT 98; BMI 41.6
--- NOTE | 2023-02-01 12:54 | MHC.PC.OV ---
Vital Signs 02/01/23 12:54 Height 5 ft 3 in Weight 235 lb BMI 41.6 BP 136/72 Blood Pressure Location Lt brachial Position Sitting Pulse 102 H Pulse Source Pulse Oximeter Pulse Oximetry (%) 98 Oxygen Delivery Method Room Air Intake Visit Reasons: PE Intake Note: Pt is here today for PE. Allergies oxycodone Allergy (Unknown, Verified 02/01/23 12:56) itchy penicillin V Allergy (Unknown, Verified 02/01/23 12:56) rash Sulfa (Sulfonamide Antibiotics) Allergy (Unknown, Verified 02/01/23 12:56) rash atorvastatin Adverse Reaction (Unknown, Verified 02/01/23 12:56) bad headaches Medication List - Last Reconciled 02/01/23 by Margaux Bales MD calcium carbonate (Calcium 500) 500 mg PO DAILY hydrocodone-acetaminophen 5-325 mg 1 tab PO Q4-6H PRN levonorgestrel-ethinyl estrad 0.15 mg-30 mcg (91) 1 tab PO DAILY levothyroxine 75 mcg PO DAILY 30 days metronidazole 0.75% appl topical BID multivitamin 1 tab PO DAILY pravastatin 10 mg PO BEDTIME Tobacco use date assessed: 02/01/23 Dental Screening Dental Screen Date: 02/01/23 Did you have a dental visit in the last 12 months?: Yes Did you have a dental problem in the last 6 months where you did not have access to dental care?: No Was dental information given to patient?: Patient has dentist HPI PE HPI Details Pt presents for PE. She started taking pravastatin for hyperlipidemia because atorvastatin caused headaches. Patient is tolerating medication well. She is planning to have a fasting blood work ordered by her corrective therapy aide teacher. Patient also reports feeling of fullness on her neck and occasionally feeling difficulty swallowing. She had a thyroid ultrasound in July consistent with goiter and was told by corrective therapy aide teacher to report any difficulty with swallowing. Patient complains of feeling anxious and overwhelmed being single mother and not maintaining her friendships due to COVID. [facility] Medical History Obesity Osteopenia Mass of right breast longterm (current) use of 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 Vitamin D deficiency Hypogonadotropic hypogonadism Well woman exam with routine gynecological exam Non-toxic multinodular goiter Hypothyroidism Hyperlipidemia Mammogram normal Normal Pap smear Annual physical exam Mixed hyperlipidemia Salma's thyroiditis Thyromegaly Hypogonadism Obesity Surgical History History of carpal tunnel surgery Hx laparoscopic cholecystectomy Family History Father Cancer of kidney Mother Breast cancer Brother No problems noted. Brother No problems noted. 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 1. Little interest or pleasure in doing things: not at all 2. Feeling down, depressed, or hopeless: several days 3. Trouble falling or staying asleep, or sleeping too much: more than half the days 4. Feeling tired or having little energy: more than half the days 5. Poor appetite or overeating: several days 6. Feeling bad about yourself - or that you are a failure or have let yourself or your family down: several days 7. Trouble concentrating on things, such as reading the newspaper or watching television: several days 8. Moving or speaking so slowly that other people could have noticed. Or the opposite - being so fidgety or restless that you have been moving around a lot more than usual: not at all 9. Thoughts that you would be better off or of hurting yourself in some way: not at all Total score: 8 Depression Screening Interpretation: Negative Source: Developed by Drs. Jerald Sharma, Jordyn Beauchamp, Kaz Rossi and colleagues, with an educational tyra from [employer]. Thrive Questionnaire Date Thrive assessed: 02/01/23 I am a: Patient What is your living situation today?: I have a steady place to live Within the past 12 months, did the food you bought not last and you didn't have the money to get more?: Never true Within the past 12 months, did you worry whether your food would run out before you got money to buy more?: Never true Do you have trouble paying for medicines?: No Do you have trouble getting transportation to medical appointments?: No Do you have trouble paying your heating and electricity bill?: No Do you have trouble taking care of your child, family member or friend?: No Do you have trouble with day-to-day activities such as bathing, preparing meals, shopping, managing finances, etc.?: No Are you currently unemployed and looking for a job?: No Are you interested in more education?: No Please select the resources that you would like help with: None AUDIT C Alcohol Use Questionnaire (AUDIT-C) 1. How often do you have a drink containing alcohol?: Monthly or less 2. How many drinks containing alcohol do you have on a typical day when you are drinking?: 1 or 2 3. How often do you have six or more drinks on one occasion?: Never Total Score: 1 ANJALI-7 AMB Questionnaire ANJALI-7 Date ANJALI - 7 assessed: 02/01/23 Feeling nervous, anxious, or on edge: 2 = More than half the days Not being able to stop or control worryin = More than half the days Worrying too much about different things: 2 = More than half the days Trouble relaxin = More than half the days Being so restless that it is hard to sit still: 1 = Several days Becoming easily annoyed or irritable: 2 = More than half the days Feeling afraid as if something awful might happen: 1 = Several days Total ANJALI-7 score (0-4 normal; 5-9 mild; 10-14 moderate; 15-21 severe): 12 Source: Developed by Drs. Jerald Sharma, Jordyn Beauchamp, Kaz Rossi and colleagues, with an educational tyra from [employer]. Review of Systems Const All systems reviewed & are unremarkable except as noted in HPI and below Reports no additional complaints Eyes Reports no additional complaints ENT Reports no additional complaints Card Reports no additional complaints Resp Reports no additional complaints GI Reports no additional complaints Reports no additional complaints Physical exam (Primary Care) Vital Signs: Last Vital Signs Pulse 102 H 02/01/23 12:54 BP 136/72 02/01/23 12:54 Pulse Ox 98 02/01/23 12:54 Oxygen Delivery Method Room Air 02/01/23 12:54 BMI result Body Mass Index 41.6 Tobacco/Smoking Status: Tobacco use Status Tobacco use date assessed 02/01/23 02/01/23 13:00 Patient Tobacco Use Status Never used Tobacco 02/01/23 13:00 e-Cigarette/Vaping Use Never Used 02/01/23 13:00 PHQ-9: PHQ-9 Score PHQ-9: Total score 8 02/01/23 13:53 Depression Screening Interpretation: Negative Thrive Assessment: Date of Thrive Assessment Date Thrive assessed 02/01/23 02/01/23 13:53 Const General: no acute distress HENMT Ears: hearing grossly normal bilaterally Face and sinus: Yes normal facial exam Throat: Yes posterior oropharynx normal Eyes General: appearance normal, both eyes and all related structures Neck Neck: Yes no lymphadenopathy and Yes supple Thyroid: diffusely enlarged Resp Effort & Inspection: normal respiratory effort Auscultation: clear to auscultation bilaterally Cardio Rhythm: regular rhythm Heart sounds: S1 normal heart sound present and S2 normal heart sound present GI Inspection: Yes normal to inspection Palpation (GI): Soft to palpation Percussion: Yes normal to percussion Auscultation: normal bowel sounds Assessment and Plan Assessment & Plan (1) Annual physical exam: Code(s): Z00.00 - Encounter for general adult medical examination without abnormal findings Plan: Well-balanced diet and regular physical activity discussed with the patient. she is up-to-date with Pap smear (by cotton gin yard supervisor) and mammogram. patient will be referred to GI for colonoscopy (2) Hyperlipidemia: Code(s): E78.5 - Hyperlipidemia, unspecified Plan: Continue pravastatin check lipid profile (3) Hypothyroidism: Code(s): E03.9 - Hypothyroidism, unspecified Qualifiers: Hypothyroidism type: due to Salma's thyroiditis Qualified Code(s): E03.8 - Other specified hypothyroidism; E06.3 - Autoimmune thyroiditis Plan: Continue levothyroxine check TSH (4) Goiter: Code(s): E04.9 - Nontoxic goiter, unspecified Plan: Obtain thyroid ultrasound to evaluate for the side and if patient remains symptomatic she will be referred to surgeon to discuss partial thyroidectomy Orders: Orders Comprehensive Crook. Panel Fast Today E03.9 - Hypothyroidism, unspecified, E78.5 - Hyperlipidemia, unspecified, Z00.00 - Encounter for general adult medical examination without abnormal findings US thyroid Today E04.9 - Nontoxic goiter, unspecified Lipid Panel Today E03.9 - Hypothyroidism, unspecified, E78.5 - Hyperlipidemia, unspecified, Z00.00 - Encounter for general adult medical examination without abnormal findings Hemoglobin A1c Today E03.9 - Hypothyroidism, unspecified, E78.5 - Hyperlipidemia, unspecified, Z00.00 - Encounter for general adult medical examination without abnormal findings Referrals Gastroenterology Referral Z00.00 - Encounter for general adult medical examination without abnormal findings Medications: Discontinued hydrocodone-acetaminophen 5-325 mg Partial Fill upon patient request. 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
== END 2023-02-01 15:57 | disposition home or self-care (01) ==
PROVIDERS: Visit Provider Internal Medicine
DX: Z00.00 Encounter for general adult medical examination without abnormal findings (principal); E78.5 Hyperlipidemia, unspecified; E03.8 Other specified hypothyroidism; E06.3 Autoimmune thyroiditis; E04.9 Nontoxic goiter, unspecified
CPT/HCPCS: 99396

== ENCOUNTER 2023-02-05 07:50 | Outpatient (AMB) | payer OTHER, SELFPAY ==
--- NOTE | 2023-02-05 08:05 | MHC.OFFVIS ---
Intake Vital Signs 02/05/23 08:06 Height 5 ft 3 in Weight 235 lb BMI 41.6 BP 126/76 Intake Visit Reasons: DIRECTOR OF ATHLETICS annual exam Intake Note: The patient agreed to use of a medical technologist clinical during this encounter. Scribed for LESA Luna by Deisi Aguillon medical technologist clinical, on 02/05/2023 at 8:15 am EST. Oleo Hasher And Renderer: Oleo Hasher And Renderer Present (Eliana) Allergies oxycodone Allergy (Unknown, Verified 02/05/23 08:06) itchy penicillin V Allergy (Unknown, Verified 02/05/23 08:06) rash Sulfa (Sulfonamide Antibiotics) Allergy (Unknown, Verified 02/05/23 08:06) rash atorvastatin Adverse Reaction (Unknown, Verified 02/05/23 08:06) bad headaches HPI HPI Comments History of Present Illness Details She is a premenopausal woman presenting for annual exam. Doing well with no loft worker concerns. Patient admits she tries to eat a healthy diet including Calcium and Vitamin D. Currently not sexually active. Uses OCP for cycling. Denies vaginal itching and irritation. Denies family hx of ovarian cancer. Last pap smear 12/16/18. Last mammogram 07/31/22. Colonoscopy to be scheduled. She denies any contraindications to control such as: migraines with aura, history of DVT or pulmonary emboli, high blood pressure, liver disease, thrombolic disorders, Lupus, +JOSE M, or smoking. 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 Brother No problems noted. 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 Cognitive needs: No Hearing needs: No Vision needs: Yes Female Reproductive History Menstrual control method: pills Total pregnancies: 1 Full term: 1 Number of Living Children: 1 Date of last pap smear: 12/16/18 (neg pap and hpv) Date of Mammogram: 07/31/22 (Birad 2) Physical Exam Vital Signs: Last Vital Signs BP 126/76 02/05/23 08:06 BMI result Body Mass Index 41.6 Const General: cooperative, healthy appearing, no acute distress, well developed and alert Orientation/consciousness: patient oriented x3 HEENT Head: Yes normal to inspection Eyes General: appearance normal, both eyes and all related structures Neck Neck: Yes normal visual inspection Thyroid: Thyroid normal Chest Chest palpation & inspection: normal inspection of the chest Breast/axilla inspection: normal inspection of the breasts (no puckering, dimpling, peau de orange, retraction, discharge, masses) Breast/axilla palpation: normal palpation of the breasts Resp Effort & Inspection: normal respiratory effort GI Inspection: Yes normal to inspection and Yes obesity Palpation (GI): Soft to palpation (to palpation) Rectal Exam - Female: deferred General: Yes bladder normal to inspection External Female Exam: normal external appearance and normal appearance of the urethra Speculum Exam - Vagina: normal appearance of the vagina, normal palpation and normal vaginal discharge Speculum Exam - Cervix: normal appearance of the cervix and normal palpation Bimanual exam- vagina & uterus: normal palpation and normal palpation Bimanual Exam- Adnexa, other: normal adnexae and no masses Skin General skin exam: no rashes or lesions noted Neuro General: patient oriented x3 Cognition (Neuro): normal cognition Extrem General: Yes normal to inspection Psych Attitude: cooperative Thought process: Normal thought process present Assessment & Plan Assessment & Plan (1) Encounter for well woman exam: Code(s): Z01.419 - Encounter for gynecological examination (general) (routine) without abnormal findings Plan: Discussed: Current recommendations for pap smears per ASCCP guidelines. Breast awareness and periodic self breast exams. Maintaining a healthy lifestyle including a well balanced diet and routine exercise. All of her questions and concerns were addressed to the best of my ability. RTO in one year for AG. (2) Contraceptive surveillance: Code(s): Z30.40 - Encounter for surveillance of 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, unspecified Plan: Monitor her bleeding and contact the office with any concerns. She was instructed to go to ER if she develops loss of vision, severe headache that does not resolve, chest pain, difficulty breathing, abdominal pain, or pain or tenderness in extremity. Call the office with any concerns. Medications: Refilled levonorgestrel-ethinyl estrad 0.15 mg-30 mcg (91) 1 tab PO DAILY 91 tabs 4RF Coding Level of Care Code Est Pt Prev Care 40-64y(85741) Diagnoses Encounter for well woman exam Z01.419 Contraceptive surveillance Z30.40
[2023-02-05 08:06] VITALS: BP 126/76; BMI 41.6
== END 2023-02-05 08:26 | disposition home or self-care (01) ==
PROVIDERS: PCP Internal Medicine; Visit Provider Advanced Practice Midwife
DX: Z01.419 Encounter for gynecological examination (general) (routine) without abnormal findings (principal); Z30.40 Encounter for surveillance of 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, unspecified
CPT/HCPCS: 99396

== ENCOUNTER → 2023-02-05 07:50 | Outpatient (BNVA) | payer OTHER, SELFPAY | PROVIDERS: PCP Internal Medicine; Visit Provider Advanced Practice Midwife ==

== ENCOUNTER 2023-02-15 09:53 | Outpatient (AMB) | payer OTHER, SELFPAY ==
[2023-02-15 09:57] VITALS: BP 132/78; PULSE 92; RESP 13; TEMP 36.7; O2SAT 99; BMI 41.6
--- NOTE | 2023-02-15 09:57 | MHC.PC.OV ---
Vital Signs 02/15/23 09:57 Height 5 ft 3 in Weight 235 lb 2 oz BMI 41.6 BP 132/78 Blood Pressure Location Lt brachial Position Sitting Respiration 13 Pulse 92 Pulse Source Pulse Oximeter Temp 98.0 F Temp Source Temporal Artery Scan Pulse Oximetry (%) 99 Oxygen Delivery Method Room Air Intake Visit Reasons: cough Intake Note: Patient reports she had a sinus cold which began in January. This cold proceeded into a non-productive cough x7days. Patient reports she feels, like I can't cough anything up and it feels stuck in my chest. 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 Accompanied by: Self / Same As Patient Allergies oxycodone Allergy (Unknown, Verified 02/15/23 10:21) itchy penicillin V Allergy (Unknown, Verified 02/15/23 10:21) rash Sulfa (Sulfonamide Antibiotics) Allergy (Unknown, Verified 02/15/23 10:21) rash atorvastatin Adverse Reaction (Unknown, Verified 02/15/23 10:21) bad headaches Medication List - Last Reconciled 02/15/23 by Ahsan Prasad CNP calcium carbonate (Calcium 500) 500 mg PO DAILY levonorgestrel-ethinyl estrad 0.15 mg-30 mcg (91) 1 tab PO DAILY levothyroxine 75 mcg PO DAILY 30 days metronidazole 0.75% appl topical BID multivitamin 1 tab PO DAILY pravastatin 10 mg PO BEDTIME Tobacco use date assessed: 02/01/23 Dental Screening Dental Screen Date: 02/15/23 Did you have a dental visit in the last 12 months?: Yes Did you have a dental problem in the last 6 months where you did not have access to dental care?: No Was dental information given to patient?: Patient has dentist HPI HPI Comments History of Present Illness Details 47-year-old female presents with complaints of nonproductive cough for the past 1 week. She admits to adequate hydration. Her symptoms have been refractory to [id number] remedies. She reports sick family contacts. She has not recently had viral testing. She denies headache, fever, chills, body ache, fatigue, or weakness. In January, had a cold with sinus congestion, nasal congestion, and running which subsided. There was no associate cough. 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 Brother No problems noted. 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 Jerald Sharma, Jordyn Beauchamp, Kaz Rossi and colleagues, with an educational tyra from [employer]. Review of Systems Const Details: Const Denies chills, Denies fatigue, Denies fever(s), Denies headache(s) and Denies weakness ENT Denies dizziness and Denies headache(s) Card Denies chest pain, Denies lightheadedness, Denies dyspnea and Denies other (Palpitations) Resp Reports cough, Denies dyspnea, Denies wheezing and Denies other ( shortness of breath) GI Denies abdominal pain, Denies melena, Denies hematochezia, Denies change in bowel habits, Denies dyspepsia and Denies nausea Denies hematuria and Denies dysuria Musc Denies abnormal gait, Denies myalgias, Denies arthralgias, Denies numbness and Denies tingling Skin/Breast Denies rash, Denies unusual bruising and Denies wounds Neuro Denies abnormal gait, Denies dizziness, Denies headache(s), Denies memory loss, Denies numbness, Denies Sensory deficit (Neuro), Denies tingling and Denies weakness Psych Denies anxiety, Denies depression, Denies memory loss Endo Denies cold intolerance, Denies fatigue, Denies heat intolerance, Denies polydipsia and Denies polyuria Aller/Immun Denies wheezing Physical exam (Primary Care) Vital Signs: Last Vital Signs Temp 98.0 F 02/15/23 09:57 Pulse 92 02/15/23 09:57 Resp 13 02/15/23 09:57 BP 132/78 02/15/23 09:57 Pulse Ox 99 02/15/23 09:57 Oxygen Delivery Method Room Air 02/15/23 09:57 BMI result Body Mass Index 41.6 Tobacco/Smoking Status: Tobacco use Status Tobacco use date assessed 02/01/23 02/15/23 10:07 Patient Tobacco Use Status Never used Tobacco 02/15/23 10:07 e-Cigarette/Vaping Use Never Used 02/15/23 10:07 Thrive Assessment: Date of Thrive Assessment Date Thrive assessed 02/01/23 02/15/23 10:07 Const Other: General: no acute distress and well developed Nutritional Appearance: well nourished Orientation/consciousness: patient oriented x3 HENMT Head: Yes normocephalic and Yes atraumatic Eyes General: appearance normal, both eyes and all related structures Pupils: Equal, round and reactive pupils present EOM: EOMs intact bilaterally Resp Effort & Inspection: normal respiratory effort Auscultation: clear to auscultation bilaterally Cardio Rate: regular rate Rhythm: regular rhythm Heart sounds: S1 normal heart sound present, S2 normal heart sound present, no gallops, no murmurs and no rubs GI Palpation (GI): No Abdominal aortic bruit present, Soft to palpation, nontender, No hepatosplenomegaly present and No Rebound tenderness present Auscultation: normal bowel sounds General: Yes no CVA tenderness Back/Spine/Pelvis Back: no CVA tenderness Cervical Spine: cervical ROM normal and No Cervical spine tenderness Thoracic/Lumbar Spine: thoraco-lumbar ROM normal, No pain with thoraco-lumbar ROM, No thoracic spinal tenderness and No lumbar spinal tenderness Extrem General: Yes normal to inspection, No edema and No calf tenderness Skin General: warm and dry. Normal skin color. Normal skin turgor Neuro General: patient oriented x3, gait normal and no focal neuro deficit Cranial nerves: Yes Equal, round and reactive pupils present Cognition (Neuro): normal cognition Gait exam (Neuro): Normal gait present Sensory Exam: No Sensory deficit (Neuro) Psych Appearance: grossly normal Affect: normal affect Attitude: cooperative Thought process: Normal thought process present Assessment and Plan Assessment & Plan (1) Viral upper respiratory illness: Code(s): J06.9 - Acute upper respiratory infection, unspecified Plan: Likely viral illness though possibly allergies. No exam evidence of bacterial infection Viral illness There is no antibiotic medication for viruses.? They must run their course.? Most average 5-7 days but 7-10 days is not uncommon and up to 14 days is still possible.? A cough is often the last symptom to resolve and this can last for weeks in some cases. Rest Hydrate well -? Drink plenty of fluids.? Especially water. Tylenol or ibuprofen for muscle aches, headache, fever/discomfort May take Zyrtec daily Benzonatate as prescribed Cannot rule out COVID-19/RSV/Flu infection Nasal swab acquired and will be sent to the lab Return for new or worsening symptoms Verbalized understanding and agreed with treatment plan. (2) Cough: Code(s): R05.9 - Cough, unspecified Qualifiers: Cough type: acute Qualified Code(s): R05.1 - Acute cough Plan: As above Orders: Orders SARS-CoV2/FLU/RSV Today J06.9 - Acute upper respiratory infection, unspecified, R05.9 - Cough, unspecified Medications: New benzonatate 200 mg PO BID PRN 20 caps 1RF cough Coding Level of Care Code Est Pt Level 2 (44803) Diagnoses Viral upper respiratory illness J06.9 Acute cough R05.1 Cough type: acute
== END 2023-02-15 10:41 | disposition home or self-care (01) ==
LOC: HO.HMGWIW 09:53
PROVIDERS: PCP Internal Medicine
DX: J06.9 Acute upper respiratory infection, unspecified (principal); R05.1 Acute cough
CPT/HCPCS: 99212

== ENCOUNTER 2023-02-15 10:43 | Outpatient (REF) | payer OTHER, SELFPAY ==
[2023-02-15 15:57] LABS: Influenza A PCR NEGATIVE (Negative); Influenza B PCR NEGATIVE (Negative); Resp Syncy Virus RNA Qual PCR NEGATIVE (Negative); SARS COV2 PCR INHOUSE NEGATIVE (Negative)
== END 2023-02-15 10:44 | disposition home or self-care (01) ==
LOC: HO.LAB 10:43
PROVIDERS: Visit Provider Nurse Practitioner Family
DX: R05.9 Cough, unspecified (principal); J06.9 Acute upper respiratory infection, unspecified; Z11.52 Encounter for screening for COVID-19
CPT/HCPCS: 0241U

== ENCOUNTER 2023-02-18 13:52 | Outpatient (REF) | payer OTHER, SELFPAY ==
--- NOTE | ~2023-02-18 | US_ITS ---
EXAMINATION: US THYROID CLINICAL INFORMATION: Nontoxic goiter, unspecified. COMPARISON: Ultrasound thyroid 05/11/2021 and 06/08/2020. TECHNIQUE: Linear transducer ibanez-scale and color Doppler examination with attention to the region of the thyroid. FINDINGS: SIZE: Measurements of the thyroid lobes and nodules are given in sagittal, anteroposterior and transverse dimensions respectively. Right Thyroid Lobe: 5.3 x 1.8 x 1.7 cm, volume 8.5 mL. Previously 5.4 x 1.7 x 1.7 cm, volume 8.2 mL. Parenchyma: The gland echotexture is mildly heterogeneous. Thyroid vascularity is normal. Left Thyroid Lobe: 5.6 x 1.8 x 2.1 cm, volume 11.1 mL. Previously 5.1 x 1.7 x 1.7 cm, volume 10.6 mL. Parenchyma: The gland echotexture is mildly heterogeneous. Thyroid vascularity is normal. Isthmus: 0.5 cm in maximum AP dimension. Previously 0.2 cm. Estimated total number of nodules greater than or equal to 1 cm: 1. Economic Developer nodules are described as follows: 1. Location: Left superior. Size: 0.7 x 0.7 x 0.7 cm, volume 0.18 mL. Previously: 1.1 x 0.8 x 0.9 cm, volume 0.4 mL. Nodule characteristics: Composition: Solid (2). Echogenicity: Hypoechoic (2). Shape: Not taller than wide (0). Margins: Ill-defined (0). Echogenic Foci: None (0). ACR TI-RADS total points: 4 Previous: 4 ACR TI-RADS category: 4 Previous: 4 Significant change in size (>/= 20% in 2 dimensions and minimal increase of 2 mm or 50% or greater increase in volume): No Change in features: No Change in ACR TI-RADS risk category: No 2. Location: Left mid. Size: 0.7 x 0.8 x 1.0 cm, volume 0.31 mL. Previously: 1.0 x 0.6 x 0.8 cm, volume 0.3 mL. Nodule characteristics: Composition: Solid (2). Echogenicity: Cannot be determined (1). Shape: Not taller than wide (0). Margins: Irregular (2). Echogenic Foci: Macrocalcifications (1). ACR TI-RADS total points: 6 Previous: 6 ACR TI-RADS category: 4 Previous: 4 Significant change in size (>/= 20% in 2 dimensions and minimal increase of 2 mm or 50% or greater increase in volume): No Change in features: No Change in ACR TI-RADS risk category: No 3. Location: Left inferior. Size: 0.8 x 0.4 x 0.4 cm, volume 0.07 mL. Previously: 0.6 x 0.5 x 0.5 cm, volume 0.1 mL. Nodule characteristics: Composition: Solid (2). Echogenicity: Cannot be determined (1). Shape: Not taller than wide (0). Margins: Irregular (2). Echogenic Foci: Macrocalcifications (1). ACR TI-RADS total points: 6 Previous: 6 ACR TI-RADS category: 4 Previous: 4 Significant change in size (>/= 20% in 2 dimensions and minimal increase of 2 mm or 50% or greater increase in volume): No Change in features: No Change in ACR TI-RADS risk category: No NODES: No lymphadenopathy is seen in the tissue surrounding the thyroid gland. US/US thyroid IMPRESSION: Diffusely heterogeneous thyroid gland. Multiple thyroid nodules, largest TR4 nodule left mid 1.0 cm is stable in size. Continued surveillance recommended. ACR TI-RADS RECOMMENDATION REFERENCE: Ultrasound-guided fine-needle aspiration, follow up ultrasound, no further followup. * TR1 (0 point) and TR2 (2 points): No FNA or followup * TR3 (3 points): FNA if more than or equal to 2.5 cm in maximum dimension, follow up ultrasound in 1, 3 and 5 years if 1.5 to 2.4 cm in maximum dimension. * TR4 (4-6 points): FNA if more than or equal to 1.5 cm in maximum dimension, follow up ultrasound in 1, 2, 3 and 5 years if 1 to 1.4 cm in maximum dimension. * TR5 (more than or equal to 7 points): FNA if more than or equal to 1 cm in maximum dimension, follow up ultrasound every year for 5 years if 0.5 to 0.9 cm in maximum dimension. * TR3, TR4 or TR5 nodules that are below the size threshold for follow up receive no followup.
== END 2023-02-18 13:53 | disposition home or self-care (01) ==
LOC: HO.US 13:52
PROVIDERS: PCP Internal Medicine; Visit Provider Internal Medicine
DX: E04.9 Nontoxic goiter, unspecified (principal)
CPT/HCPCS: 76536

== ENCOUNTER 2023-02-20 08:28 | Outpatient (AMB) | payer OTHER, SELFPAY ==
--- NOTE | 2023-02-20 08:29 | AM.OFFWIN_ITS ---
Intake Vital Signs 02/20/23 08:30 Height 5 ft 3 in Weight 235 lb BMI 41.6 BP 130/78 Blood Pressure Location Lt brachial Position Sitting Pulse 84 Pulse Source Pulse Oximeter Temp 98.7 F Temp Source Temporal Artery Scan Pulse Oximetry (%) 96 Intake Visit Reasons: EP Fatigue, Cough since Saturday (Lobby) Intake Note: pt is here for c/o fatigue, cough since saturday Patient Tobacco Use Status: Never used Tobacco Allergies oxycodone Allergy (Unknown, Verified 02/20/23 08:32) itchy penicillin V Allergy (Unknown, Verified 02/20/23 08:32) rash Sulfa (Sulfonamide Antibiotics) Allergy (Unknown, Verified 02/20/23 08:32) rash atorvastatin Adverse Reaction (Unknown, Verified 02/20/23 08:32) bad headaches Do you need a note to return to daycare/school/sports/work: Yes HPI EP Fatigue, Cough since Saturday (Lobby) HPI Details 47 year old patient presents today for a sick visit. She reports sick symptoms for about one month. This started as sinus congestion, and although that has largely resolved, she continues to have persistent productive cough and chest congestion, particularly in the mornings. She denies any fever or chills. She was recently tested for COVID/flu/RSV, all of which were negative. PCP started her benzonatate, which has not helpful. 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 Brother No problems noted. 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 Cognitive needs: No Hearing needs: No Vision needs: Yes Review of Systems Const All systems reviewed & are unremarkable except as noted in HPI and below Physical Exam Vital Signs: Last Vital Signs Temp 98.7 F 02/20/23 08:30 Pulse 84 02/20/23 08:30 BP 130/78 02/20/23 08:30 Pulse Ox 96 02/20/23 08:30 BMI result Body Mass Index 41.6 Const General: cooperative and no acute distress HEENT Head: Yes normal to inspection Ears: hearing grossly normal bilaterally General nose exam: Normal external nose present and Normal nares present Neck Neck: Yes no lymphadenopathy Resp Effort & Inspection: normal respiratory effort and Actively coughing Quality: productive Auscultation: clear to auscultation bilaterally Cardio Jugular venous distension: no JVD Palpation: normal PMI Rate: regular rate Rhythm: regular rhythm Skin General skin exam: no rashes or lesions noted Extrem General: Yes capillary refill normal and Yes no clubbing, cyanosis or edema Psych Appearance: grossly normal Mental Status: mental status grossly normal Speech and movement: Normal speech and movement present Assessment & Plan Assessment & Plan (1) Bronchitis: Code(s): J40 - Bronchitis, not specified as acute or chronic Plan: Chest XR does not reveal any acute findings. I will start patient azithromycin also short course of Prednisone. Patient prefers low dose of this, so will start her on 20 mg daily x5 days. Reviewed indications, use, possible side effects of medications. She can continue to take previously prescribed benzonatate. If symptoms worsen or if she does not improve with treatment, she should return to the clinic or PCP for further evaluation. She verbalizes understanding agrees to plan. (2) Persistent cough: Code(s): R05.3 - Chronic cough Orders: Orders XR chest 2V Today J40 - Bronchitis, not specified as acute or chronic, R05.3 - Chronic cough Medications: New prednisone 20 mg PO DAILY 5 tabs 0RF 5 days J40 - Bronchitis, not specified as acute or chronic, R05.3 - Chronic cough azithromycin For 250 mg dose pack: take 500 mg today (day 1), then 250 mg for 4 days (days 2-5) PO 6 tabs 0RF J40 - Bronchitis, not specified as acute or chronic, R05.3 - Chronic cough Coding Level of Care Code Est Pt Level 3 (34619) Diagnoses Bronchitis J40 Persistent cough R05.3
[2023-02-20 08:30] VITALS: BP 130/78; PULSE 84; TEMP 37.1; O2SAT 96; BMI 41.6
== END 2023-02-20 08:52 | disposition home or self-care (01) ==
PROVIDERS: PCP Internal Medicine; Visit Provider Nurse Practitioner Family
DX: J40 Bronchitis, not specified as acute or chronic (principal); R05.3 Chronic cough
CPT/HCPCS: 99213

== ENCOUNTER 2023-02-20 08:51 | Outpatient (REF) | payer OTHER, SELFPAY ==
--- NOTE | ~2023-02-20 | XR_ITS ---
EXAMINATION: XR CHEST CLINICAL INFORMATION: Bronchitis COMPARISON: None available. TECHNIQUE: 2 views of the chest were obtained. FINDINGS: No significant abnormality is noted involving the heart, lungs, mediastinum, bony thorax or soft tissues. XR/XR chest 2V IMPRESSION: Unremarkable examination.
== END 2023-02-20 08:52 | disposition home or self-care (01) ==
LOC: HO.HMGCX 08:51
PROVIDERS: PCP Internal Medicine; Visit Provider Nurse Practitioner Family
DX: J40 Bronchitis, not specified as acute or chronic (principal); R05.3 Chronic cough
CPT/HCPCS: 71046

== ENCOUNTER 2023-03-07 07:22 | Emergency (ER) | payer OTHER, SELFPAY ==
--- NOTE | ~2023-03-07 | XR_ITS ---
EXAMINATION: XR HIP, LEFT CLINICAL INFORMATION: Fall with left hip pain COMPARISON: None available. TECHNIQUE: Two views of the left hip. FINDINGS: No fracture. Alignment is anatomic. Hip joint space is maintained. The tiny amorphous calcification above the greater trochanter is of no significance, probably degenerative. The soft tissues are otherwise unremarkable. XR/XR hip LT w PEL1V IMPRESSION: No evidence of an acute injury.
[2023-03-07 07:30] VITALS: BP 139/85; PULSE 105; RESP 20; TEMP 36.9; O2SAT 98; BMI 41.6
--- NOTE | 2023-03-07 07:41 | ED_ITS ---
HPI - General Adult General Chief complaint: Extremity Injury, Lower Stated complaint: pain l side hip backside area diff walking Time Seen by Provider: 03/07/23 07:36 Source: patient Mode of arrival: ambulatory Limitations: no limitations History of Present Illness HPI narrative: Patient is a 47-year-old female presenting to the emergency department with complaint of left hip pain which woke her from sleep last night. She denies any recent falls or other trauma, denies any recent lifting. States that the pain radiates under left buttock. Denies any saddle anesthesia or bowel or bladder incontinence. Denies any urinary symptoms. Denies any abdominal pain. Denies fevers. She has not taken any OTC medications at home for he symptoms. MD complaint: left hip pain Onset (ago): hour(s) Location: pelvis Radiation: other (under left buttock) Severity: severe Quality: burning and sharp Pain Consistency: constant Relieving factors: none Exacerbating factors: movement Associated symptoms: denies other symptoms Treatments prior to arrival: none Related Data Home Medications Medication Instructions Recorded Confirmed calcium carbonate 500 mg calcium 500 mg PO DAILY 02/03/20 02/15/23 (1,250 mg) tablet (Calcium 500) multivitamin 1 tab PO DAILY 02/03/20 02/15/23 Previous Rx's Medication Instructions Recorded levothyroxine 75 mcg tablet 75 mcg PO DAILY 30 days #30 tabs 05/21/22 pravastatin 10 mg tablet 10 mg PO BEDTIME #90 tabs 01/16/23 levonorgestrel 0.15 mg-ethinyl 1 tab PO DAILY #91 tabs 02/05/23 estradiol 30 mcg tablets,3 mos pack(91) benzonatate 200 mg capsule 200 mg PO BID PRN cough #20 caps 02/15/23 azithromycin 250 mg tablet See Rx Instructions PO .COMPLEX #6 02/20/23 tabs prednisone 20 mg tablet 20 mg PO DAILY 5 days #5 tabs 02/20/23 cyclobenzaprine 5 mg tablet 5 mg PO TID PRN muscle spasm #10 03/07/23 tabs lidocaine 5 % topical patch 1 patch topical DAILY #15 ea 03/07/23 prednisone 20 mg tablet 40 mg (2 x 20 mg) PO DAILY #10 tabs 03/07/23 Allergies Allergy/AdvReac Type Severity Reaction Status Date / Time oxycodone Allergy Unknown itchy Verified 02/20/23 08:32 penicillin V Allergy Unknown rash Verified 02/20/23 08:32 Sulfa (Sulfonamide Allergy Unknown rash Verified 02/20/23 08:32 Antibiotics) atorvastatin AdvReac Unknown bad Verified 02/20/23 08:32 headaches Review of Systems Review of Systems: As per HPI. Yes all other systems are reviewed and are negative Constitutional: Constitutional: Reports as per HPI [facility] Past Medical History Medical History Obesity Osteopenia Mass of right breast intermediate (current) use of 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 Vitamin D deficiency Hypogonadotropic hypogonadism Well woman exam with routine gynecological exam Non-toxic multinodular goiter Hypothyroidism Hyperlipidemia Mammogram normal Normal Pap smear Annual physical exam Mixed hyperlipidemia Salma's thyroiditis Thyromegaly Hypogonadism Obesity Surgical History History of carpal tunnel surgery Hx laparoscopic cholecystectomy Family History Family History Father Cancer of kidney FH: HTN (hypertension) Mother Breast cancer Brother No problems noted. Brother No problems noted. 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 Blood pressure normal. Heart rate mildly tachycardic. Respiratory rate normal. Temperature normal. Oxygen saturation normal. Const General: cooperative, healthy appearing and no acute distress Orientation/consciousness: oriented to person, oriented to place, oriented to time and patient oriented x3 Limitations: no limitations HENMT Head: Yes normocephalic and Yes atraumatic Ears: external ears normal General nose exam: Normal external nose present Face and sinus: Yes face symmetric Mouth: oropharynx normal and moist mucous membranes Throat: Yes uvula midline Eyes Pupils: Equal, round and reactive pupils present Neck Neck: Yes normal visual inspection and Yes supple Resp Effort & Inspection: normal respiratory effort and able to speak in complete sentences Auscultation: clear to auscultation bilaterally Cardio Rate: regular rate Rhythm: regular rhythm Heart sounds: S1 normal heart sound present and S2 normal heart sound present GI Palpation (GI): Soft to palpation and nontender Auscultation: normoactive bowel sounds General: Yes no CVA tenderness Back/Spine/Pelvis Back: no CVA tenderness Thoracic/Lumbar Spine: thoracic and lumbar spine normal to inspection, thoraco- lumbar ROM normal, pain with thoraco-lumbar ROM, No thoracic spinal tenderness, No lumbar spinal tenderness and straight leg raise positive left Pelvis: no pain with anterior-posterior compression and pain with lateral compression (left lateral hip pain with lateral compression) Sacroiliac joints: bilaterally nontender Sacrum: no tenderness Skin General skin exam: elasticity normal and turgor normal Neuro General: oriented to person, oriented to place, oriented to time, patient oriented x3, moves all extremities, no focal motor deficits and CN's II-XI intact bilaterally Cranial nerves: Yes Equal, round and reactive pupils present Cognition (Neuro): normal cognition Extrem General: Yes full ROM, Yes no pedal edema and Yes no calf tenderness Left lower extremity: hip/thigh Details: normal to inspection, tenderness L ocation: of the hip Location: laterally and normal ROM; no ecchymosis and no unusual warmth and foot Details: vascular exam Details: dorsalis pedis pulse present and posterior tibial pulse present Psych Mental Status: mental status grossly normal Affect: normal affect Thought process: Normal thought process present Medications Administered Discontinued Medications Generic Name Dose Route Start Last Admin Trade Name Freq PRN Reason Stop Dose Admin Acetaminophen 975 mg 03/07/23 08:48 03/07/23 09:12 Acetaminophen 325 Mg Tablet PO 03/07/23 08:49 975 mg ONCE ONE Administration Cyclobenzaprine HCl 10 mg 03/07/23 08:48 11/02/23 09:12 Cyclobenzaprine Hcl 10 Mg Tablet PO 03/07/23 08:49 10 mg ONCE ONE Administration Prednisone 40 mg 03/07/23 08:48 03/07/23 09:12 Prednisone 20 Mg Tablet PO 03/07/23 08:49 40 mg ONCE ONE Administration Medical Decision Making Medical Decision Making [facility] Narrative: Patient is a 47-year-old female presenting to the emergency department with complaint of left hip pain which woke her from sleep last night. On exam patient is awake, A+Ox3, VS WNL, afebrile, normal neurological exam without focal deficits, physical exam findings as above. Given reported symptoms and physical exam findings, initial differential includes osteoarthritis, radiculopathy, muscle strain. X-ray notable for no acute injuries. My interpretation is in agreement with the radiologist's interpretation. Patient reports improved symptoms after receiving medications in the ED. Will discharge home with cyclobenzaprine, lidocaine patches, and prednisone. Instructed patient to follow up with PCP. Return precautions discussed at bedside. Patient verbalized understanding of and agreement with plan. Differential Diagnosis Differential Diagnoses: The differential diagnosis associated with the presentation includes As per [facility] Independent Interpretation I performed an independent interpretation of an: Plain X-Ray Interpretation: No acute abnormalities on hip x-ray. Radiology Impression Discussion of test interpretation with radiology: I have reviewed the radiologist's reading. Radiologist Impression: XR/XR hip LT w PEL1V IMPRESSION: No evidence of an acute injury. External Record Review External record reviewed: Inpatient record, Office record and Outpatient record Prescription Management I considered prescription management with: Pain Medication and Other Discharge Plan Discharge Clinical Impression: Acute pain of left hip Patient Disposition: Home, Self-Care Instructions: Hip Pain (ED) Additional Instructions: Your evaluated in the emergency department today with complaint of left hip pain. Your x-ray did not show evidence of any conditions requiring emergent treatment at this time. You are being prescribed cyclobenzaprine which you can use every 8 hours as needed for muscle spasms as well as a short course of prednisone and topical lidocaine patches. You wear the patches for up to 12 hours in a 24 hour period, do not apply heat directly over the patches. You should follow-up with her primary care provider this week. Return to the emergency department if you develop worsening pain, fever 100.4? F or greater, bowel or bladder incontinence, difficulty urinating, new numbness, weakness, or tingling to your groin area or lower extremities. Prescriptions: New prednisone 20 mg tablet 40 mg PO DAILY Qty: 10 0RF cyclobenzaprine 5 mg tablet 5 mg PO TID PRN (Reason: muscle spasm) Qty: 10 0RF lidocaine 5 % adhesive patch,medicated 1 patch topical DAILY Qty: 15 0RF Rx Instructions: leave on most painful area for up to 12 hrs No Action levothyroxine 75 mcg tablet 75 mcg PO DAILY 30 Days Qty: 30 11RF pravastatin 10 mg tablet 10 mg PO BEDTIME Qty: 90 1RF benzonatate 200 mg capsule 200 mg PO BID PRN (Reason: cough) Qty: 20 1RF prednisone 20 mg tablet 20 mg PO DAILY 5 Days Qty: 5 0RF azithromycin 250 mg tablet See Rx Instructions PO .COMPLEX Qty: 6 0RF Rx Instructions: For 250 mg dose pack: take 500 mg today (day 1), then 250 mg for 4 days (days 2-5) PO calcium carbonate [Calcium 500] 500 mg calcium (1,250 mg) tablet 500 mg PO DAILY multivitamin Tablet 1 tab PO DAILY levonorgestrel-ethinyl estrad 0.15 mg-30 mcg (91) tablets,dose pack,3 month 1 tab PO DAILY Qty: 91 4RF
--- NOTE | 2023-03-07 08:31 | PC.NURSE ---
PT WAS ASSESSED FPR NONTRAUMATIC HIP PAIN BY PROVIDER. SHE IS AMBULATORY IN ED. RADIOLOGY IMAGE WAS NEGATIVE
[2023-03-07] MEDS: predniSONE 20 MG TABLET 40 MG PO (09:12)
[2023-03-07] MEDS: Cyclobenzaprine HCl 10 MG TABLET PO (09:12)
[2023-03-07] MEDS: Acetaminophen 325 MG TABLET 975 MG PO (09:12)
== END 2023-03-07 10:35 | disposition home or self-care (01) ==
PROVIDERS: Emergency Provider Emergency Medicine; PCP Internal Medicine
DX: M25.552 Pain in left hip (principal); R10.2 Pelvic and perineal pain
CPT/HCPCS: 73502; 99283

== ENCOUNTER 2023-04-04 07:03 | Outpatient (REF) | payer OTHER, SELFPAY ==
[2023-04-04 07:40] LABS: Estimated Average Glucose 103 mg/dL; Hemoglobin A1c % 5.2 % (<6.0)
[2023-04-04 07:53] LABS: Alanine Aminotransferase 30 U/L (0-31); Albumin Level 4.1 g/dL (3.5-5.0); Alkaline Phosphatase 66 U/L (39-117); Anion Gap 11 (12-20); Aspartate Amino Transferase 26 U/L (5-31); Bilirubin Total 0.4 mg/dL (0.0-1.0); Blood Urea Nitrogen 12 mg/dL (9-16); Calcium 9.5 mg/dL (8.4-10.2); Carbon Dioxide 26 mmol/L (22-29); Chloride 106 mmol/L (96-108); Cholesterol 207 mg/dL (<200); Estimated Glomerular Filt Rate > 60; Glucose Fasting 88 mg/dL (60-99); Glucose Random 88 mg/dL (60-115); HDL Cholesterol 54 mg/dL (>40); LDL Cholesterol Calculated 129 mg/dL (<100); Potassium 4.2 mmol/L (3.3-5.1); Sodium 139 mmol/L (135-145); Total Protein 7.7 g/dL (6.5-8.0); Triglycerides 120 mg/dL (<150)
[2023-04-04 08:07] LABS: Cortisol Random 10.5 ug/dL; Thyroid Stimulating Hormone 0.32 uIU/mL (0.32-4.0)
[2023-04-04 08:08] LABS: Free T4 (Free Thyroxine) 1.16 ng/dL (0.71-1.85)
[2023-04-04 09:09] LABS: Osmolality, Serum 294 mosm/kg (281-305)
[2023-04-05 05:28] LABS: Triiodothyronine T3 Total 142 ng/dL (76-181)
[2023-04-05 05:39] LABS: Follicle Stimulating Hormone 0.9 mIU/mL; Lutenizing Hormone 0.2 mIU/mL; Prolactin 6.6 ng/mL; Sex Hormone Binding Globulin 58 nmol/L (17-124)
[2023-04-05 08:49] LABS: LDL Cholesterol Direct 134 mg/dL (<100)
[2023-04-08 01:38] LABS: Estradiol Ultra Sensitive 7 pg/mL
[2023-04-08 15:08] LABS: IGF-1 (Somatomedin C) 151 ng/mL (52-328); IGF-1 Z Score (Female) 0.1 SD (-2.0 - +2.0)
[2023-04-08 15:58] LABS: Adrenocorticotropic Hormone 21 pg/mL (6-50)
== END 2023-04-04 07:04 | disposition home or self-care (01) ==
LOC: HO.LAB 07:03
PROVIDERS: PCP Internal Medicine; Referring Provider Internal Medicine; Visit Provider Internal Medicine
DX: Z00.00 Encounter for general adult medical examination without abnormal findings (principal); E78.5 Hyperlipidemia, unspecified; E03.9 Hypothyroidism, unspecified; E23.0 Hypopituitarism; E03.8 Other specified hypothyroidism; E06.3 Autoimmune thyroiditis; E04.2 Nontoxic multinodular goiter
CPT/HCPCS: 36415; 80048; 80053; 80061; 82024; 82533; 82670; 83001; 83002; 83036; 83721; 83930; 84146; 84270; 84305; 84439; 84443; 84480

== ENCOUNTER 2023-04-10 07:53 | Outpatient (AMB) | payer OTHER, SELFPAY ==
[2023-04-10 07:55] VITALS: BP 130/70; PULSE 66; BMI 42.1
--- NOTE | 2023-04-10 07:55 | A.OFFVIS_ITS ---
Intake Vital Signs 04/10/23 07:55 Height 5 ft 3 in Weight 237 lb 10.533 oz BMI 42.1 BP 130/70 Blood Pressure Location Lt brachial Position Sitting Pulse 66 Pulse Source Pulse Oximeter Intake Visit Reasons: F/U HLD Intake Note: Patient present for HLD follow up visit. Previously followed by Dr. Joyner. 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 She was previously followed by Dr. Quevedo. The patient last saw Dr. Joyner on 10/19/2022 1) Salma's Disease and NTMNG: She was diagnosed with Salma's disease shortly after the of her Son in 2018. 06/2018 her TSH was 59.83. Her TPO and TG antibodies were positive. She was started on Levothyroxine, and is currently using levothyroxine 75 mcg PO daily. Her official US was read as a multinodular thyroid, but I repeated this myself 12/14/2021 and this revealed a diffusely heterogenous gland with no true thyroid nodules, only pseudonodules. She does mention mild dysphagia She denies any symptoms of hyper or hypothyroidism. She denies any history of head or neck irradiation. She denies any Family history of thyroid cancer. She does have an Aunt with a history of hypothyroidism. 2) Hypogonadotropic Hypogonadism: She reports a longstanding history of hypogonadotropic hypogonadism. MRI reveals a thickened pituitary stalk, but no other obvious abnormality. Her pituitary panel was WNL other than hypogonadotropic hypogonadism. She is on OCP and does have monthly menses on this. She was unable to conceive spontaneously, but did undergo IVF with a donor egg and carried a succesful . She has a healthy Son. DXA was completed and reveals osteopenia of the hip. 3) HLD: She also has hyperlipidemia. She was started on Atorvastatin 10 mg PO daily and took this for 3 months. She developed headaches and stopped this. Headaches resolved. Thyroid US: 05/11/2021 Right Thyroid Lobe: 5.4 x 1.7 x 1.7 cm, volume 8.2 mL. Previously 4.9 x 2.1 x 1.8 cm, volume 9.5 mL. Parenchyma: The gland echotexture is homogeneous. Thyroid vascularity is normal. Left Thyroid Lobe: 5.1 x 1.7 x 1.7 cm, volume 7.6 mL. Previously 5.8 x 1.9 x 1.9 cm, volume 10.6 mL. Parenchyma: The gland echotexture is homogeneous. Thyroid vascularity is normal. Isthmus: 0.2 cm in maximum AP dimension. Previously 0.5 cm. Estimated total number of nodules greater than or equal to 1 cm: 1. 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 Location: Left superior. ?? ? Size: 1.1 x 0.8 x 0.9 cm, volume 0.4 mL. ?? ? Previously: 1.0 x 0.7 x 1.0 cm, volume 0.4 mL. ?? ? Nodule characteristics: ?? ? Composition: Solid (2). ?? ? Echogenicity: Hypoechoic (2). ?? ? Shape: Not taller than wide (0). ?? ? Margins: Ill-defined (0). ?? ? Echogenic Foci: None (0).? ACR TI-RADS total points: 4 Previous: 4 ?? ? ACR TI-RADS category: 4 Previous: 4 ? Significant change in size (>/= 20% in 2 dimensions and minimal increase of 2 mm or 50% or greater increase in volume): No ?? ? Change in features: No ?? ? Change in ACR TI-RADS risk category: No 2.? Location: Left mid. ?? ? Size: 1.0 x 0.6 x 0.8 cm, volume 0.3 mL. ?? ? Previously: 1.0 x 0.8 x 0.7 cm, volume 0.3 mL. ?? ? Nodule characteristics: ?? ? Composition: Solid (2). ?? ? Echogenicity: Hyperechoic (1). ?? ? Shape: Not taller than wide (0). ?? ? Margins: Irregular (2). ?? ? Echogenic Foci: Macrocalcifications (1). ? ACR TI-RADS total points: 6 Previous: 6 ?? ? ACR TI-RADS category: 4 Previous: 4 ? Significant change in size (>/= 20% in 2 dimensions and minimal increase of 2 mm or 50% or greater increase in volume): No ?? ? Change in features: No ?? ? Change in ACR TI-RADS risk category: No 3.? Location: Left inferior. ?? ? Size: 0.6 x 0.5 x 0.5 cm, volume 0.1 mL. ?? ? Previously: 0.8 x 0.5 x 0.4 cm. Nodules 3 and 4 were measured as one nodule on prior exam. ?? ? Nodule characteristics: ?? ? Composition: Solid (2). ?? ? Echogenicity: Hyperechoic (1). ?? ? Shape: Not taller than wide (0). ?? ? Margins: Irregular (2). ?? ? Echogenic Foci: Macrocalcifications (1). ? ACR TI-RADS total points: 6 ?? ? ACR TI-RADS category: 4 ? Significant change in size (>/= 20% in 2 dimensions and minimal increase of 2 mm or 50% or greater increase in volume): No ?? ? Change in features: No ?? ? Change in ACR TI-RADS risk category: No 4.? Location: Left inferior. ?? ? Size: 0.4 x 0.3 x 0.4 cm, volume 0.03 mL. ?? ? Previously: 0.8 x 0.5 x 0.4 cm. Nodules 3 and 4 measured as one nodule on prior exam. ?? ? Nodule characteristics: ?? ? Composition: Solid (2). ?? ? Echogenicity: Hyperechoic (1). ?? ? Shape: Not taller than wide (0). ?? ? Margins: Ill-defined (0). ?? ? Echogenic Foci: Macrocalcifications (1).? ACR TI-RADS total points: 4 ?? ? ACR TI-RADS category: 4 ? Significant change in size (>/= 20% in 2 dimensions and minimal increase of 2 mm or 50% or greater increase in volume): No ?? ? Change in features: No ?? ? Change in ACR TI-RADS risk category: No NODES: No lymphadenopathy is seen in the tissue surrounding the thyroid gland. DXA: 07/05/2021 FINDINGS: AP SPINE L1-L2 (excluding L3 and L4): The data of L1-L4 has been changed to exclude the L3 and L4 vertebral bodies, because probable mild degenerative changes at these levels may cause overestimation of lumbar spine density. BMD 1.094 g/cm2, T-score -0.6, Z-score -1.8, Z-score within expected range for age. LEFT FEMUR, NECK: BMD 0.845 g/cm2, T-score -1.4, Z-score -1.6, Z-score within expected range for age. LEFT FEMUR, TOTAL: BMD 0.976 g/cm2, T-score -0.3, Z-score -0.8, Z-score within expected range for age.? LEFT FOREARM RADIUS 33%: BMD 0.882 g/cm2, T-score 0.1, Z-score 0.1, Z-score within expected range for age.? MRI Brain: 06/21/2021 FINDINGS: No abnormal focus of decreased differential enhancement is seen within the pituitary gland. The pituitary gland parenchyma appears relatively thin. The infundibulum measures approximately 3.4 mm AP, just superior to the pituitary gland, which is mildly thickened. The infundibulum is in the midline. The cavernous sinuses opacify symmetrically. The internal carotid artery flow-voids are maintained. The optic chiasm is normal. No suprasellar soft tissue abnormality is seen. The sella turcica is normal. No diffusion abnormalities are identified to suggest an acute or subacute infarct. No mass effect or midline shift is seen. The ventricles are normal in size.? Brain parenchymal signal is unremarkable. No extra-axial fluid collections are seen. The brainstem appears normal. On postcontrast imaging, there is no abnormal parenchymal or leptomeningeal enhancement. There is no evidence of acute hemorrhage. The cerebellar tonsillar tips extend approximately 4.4 mm below the level of foramen magnum, but have normal contours bilaterally. Marrow signal and midline structures are normal. The major intracranial flow-voids at the level of the pilot point of [place] are preserved. There is a small cyst in the high nasopharynx posteriorly on the right. The dural venous sinus flow-voids are maintained. The mastoid air cells and the paranasal sinuses are well-aerated. The nasal septum is significantly deviated to the left. Labs: Laboratory Tests 06/14/22 10/16/22 10/16/22 08:05 07:51 07:51 Creatinine 0.79 Estimated GFR > 60 AST 17 ALT 14 Triglycerides 99 Cholesterol 224 LDL Cholesterol Di rect 151 H LDL Cholesterol, C alc 143 HDL Cholesterol 62 25-OH Vitamin D To samson 34.7 TSH 0.91 Free T4 1.05 PFSH Medical History Obesity Osteopenia Mass of right breast [facility] (current) use of 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 Vitamin D deficiency Hypogonadotropic hypogonadism Well woman exam with routine gynecological exam Non-toxic multinodular goiter Hypothyroidism Hyperlipidemia Mammogram normal Normal Pap smear Annual physical exam Mixed hyperlipidemia Salma's thyroiditis Thyromegaly Hypogonadism Obesity Surgical History History of carpal tunnel surgery Hx laparoscopic cholecystectomy Family History Father Cancer of kidney FH: HTN (hypertension) Mother Breast cancer Brother No problems noted. Brother No problems noted. 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 There are no thyroid nodules palpated Assessment & Plan Assessment & Plan (1) Hypothyroidism: Code(s): E03.9 - Hypothyroidism, unspecified Qualifiers: Hypothyroidism type: due to Salma's thyroiditis Qualified Code(s): E03.8 - Other specified hypothyroidism; E06.3 - Autoimmune thyroiditis Plan: This is a 47-year-old white female with a history of hypothyroidism due to Salma's thyroiditis. She is currently being treated with levothyroxine 75 mcg. She appears to be clinically biochemically euthyroid. Plan is to continue the current therapy (2) Goiter: Code(s): E04.9 - Nontoxic goiter, unspecified Plan: History of Salma's thyroiditis with? Pseudo nodules subcentimeter. No need for further ultrasound follow-up. (3) Hyperlipidemia: Code(s): E78.5 - Hyperlipidemia, unspecified Plan: Currently on pravastatin 10 mg q.d. LDL of 130 which is somewhat goal. Plan is to continue the current therapy (4) Hypogonadotropic hypogonadism: Code(s): E23.0 - Hypopituitarism Plan: History of isolated hypogonadotropic hypogonadism currently being treated with estradiol. (5) Osteopenia: Code(s): M85.80 - Other specified disorders of bone density and structure, unspecified site Plan: History of low bone mass. On calcium, vitamin-D and estrogen. Coding Level of Care Code Est Pt Level 3 (20267) Diagnoses 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 E03.8; E06.3 Hypothyroidism type: due to Salma's thyroiditis Goiter E04.9 Hyperlipidemia E78.5 Hypogonadotropic hypogonadism E23.0 Osteopenia M85.80
== END 2023-04-10 08:32 | disposition home or self-care (01) ==
PROVIDERS: PCP Internal Medicine; Visit Provider Internal Medicine Endocrinology, Diabetes & Metabolism
DX: E03.8 Other specified hypothyroidism (principal); E06.3 Autoimmune thyroiditis; E04.9 Nontoxic goiter, unspecified; E78.5 Hyperlipidemia, unspecified; E23.0 Hypopituitarism; M85.80 Other specified disorders of bone density and structure, unspecified site
CPT/HCPCS: 99213

== ENCOUNTER → 2023-04-10 07:53 | Outpatient (BNVA) | payer OTHER, SELFPAY | PROVIDERS: PCP Internal Medicine; Visit Provider Internal Medicine Endocrinology, Diabetes & Metabolism ==

== ENCOUNTER 2023-04-10 10:54 | Outpatient (AMB) | payer OTHER, SELFPAY ==
--- NOTE | 2023-04-10 10:58 | A.OFFVIS_ITS ---
Intake Vital Signs 3 04/10/23 11:00 Height 5 ft 3 in Weight 231 lb 7.766 oz BMI 41.0 BP 123/77 Blood Pressure Location Lt brachial Position Sitting Pulse 86 Intake Visit Reasons: Colonoscopy Screening Intake Note: Arlen presents in the office as a new patient for a colonoscopy screening. CC: She states that she is not having any concerns she is just due for the colonoscopy. 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 She is referred by Carole Ballard of [facility] primary care. PMX Obesity Hypertension - pt denies High cholesterol Hypogonadotropic hypogonadism - need b/c pills Mass of the right breast Hypothyroid Goiter Cubital tunnel syndrome Carpal tunnel syndrome Osteopenia * SURGICAL HISTORY Carpal tunnel surgery left hand Laparoscopic pick cholecystectomy * ALLERGIES Oxycodone Penicillin Sulfa Atorvastatin * SGB LABS: Laboratory Tests 04/04/23 07:26 Estimated GFR > 60 Total Bilirubin 0.4 AST 26 ALT 30 Alkaline Phosphata se 66 TODAY'S VISIT This is her first colonoscopy. She denies any bowel or upper GI problems. She denies any cardiac or respiratory problems. There are no prior problems with anesthesia or sedation. NO ID problems Her maternal grandfather had CRC, unsure if mother had colon polyps but there are polyps on her mothers side. COUNTS INCLUDE 234 BEDS AT THE [facility] Medical History Obesity Osteopenia Mass of right breast halfway (current) use of 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 Vitamin D deficiency Hypogonadotropic hypogonadism Well woman exam with routine gynecological exam Non-toxic multinodular goiter Hypothyroidism Hyperlipidemia Mammogram normal Normal Pap smear Annual physical exam Mixed hyperlipidemia Salma's thyroiditis Thyromegaly Hypogonadism Obesity Surgical History History of carpal tunnel surgery Hx laparoscopic cholecystectomy Family History Father Cancer of kidney FH: HTN (hypertension) Mother Breast cancer Brother No problems noted. Brother No problems noted. 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 Cognitive needs: No Hearing needs: No Vision needs: Yes Review of Systems Const Denies fatigue, Denies fever(s), Denies night sweats, Denies poor appetite and Denies weight loss ENT Reports Normal hearing present, Denies dysphagia, Denies odynophagia, Denies throat swelling and Denies tongue swelling Card Reports no additional complaints Resp Reports no additional complaints GI Denies abdominal pain, Denies melena, Denies bloating, Denies hematochezia, Denies constipation, Denies GI cramping, Denies dysphagia, Denies excessive flatus, Denies early satiety, Denies heartburn, Denies diarrhea, Denies nausea, Denies odynophagia, Denies vomiting and Denies hematemesis Skin/Breast Denies pruritus, Denies lesions, Denies rash and Denies jaundice Neuro Reports Normal hearing present and Denies Abnormal speech present Endo Denies fatigue Aller/Immun Denies throat swelling and Denies tongue swelling Physical Exam Vital Signs: Last Vital Signs Pulse 86 04/10/23 11:00 BP 123/77 04/10/23 11:00 BMI result Body Mass Index 41.0 Const General: cooperative, no acute distress, well developed and well groomed Nutritional Appearance: well nourished and obese morbidly obese Orientation/consciousness: oriented to person, oriented to place and oriented to time Limitations: No language barrier HEENT Head: Yes normocephalic and Yes atraumatic Eyes General: appearance normal, both eyes and all related structures Pupils: Equal, round and reactive pupils present Neck Neck: Yes normal visual inspection and Yes no lymphadenopathy Thyroid: Thyroid normal Resp Effort & Inspection: normal respiratory effort and able to speak in complete sentences Auscultation: clear to auscultation bilaterally Cardio Rate: regular rate Rhythm: regular rhythm Heart sounds: Normal, physiologic split S2 sound present Peripheral pulses: radial pulses present and posterior tibial pulses present GI Inspection: No distended, Yes Abdominal panniculus present and Yes obesity Palpation (GI): Soft to palpation, nontender, no guarding, not rigid and No hepatosplenomegaly present Percussion: Yes normal to percussion Auscultation: normal bowel sounds Rectal Exam - Female: deferred Abdomen image: 2 1. Surgical scars 2. Skin General skin exam: no rashes or lesions noted, turgor normal, skin not dry, no jaundice, No spider nevi and no striae Rashes: no rashes Nails: normal Neuro General: oriented to person, oriented to place and oriented to time Cranial nerves: Yes Equal, round and reactive pupils present and Yes Normal hearing present Speech: No Abnormal speech present Extrem General: Yes normal to inspection, No clubbing, No cyanosis and No edema Psych Appearance: grossly normal and well kempt Mental Status: mental status grossly normal Speech and movement: Normal speech and movement present Affect: normal affect Attitude: cooperative Thought process: Normal thought process present and not confabulating Thought content: Normal thought content present Insight: Good insight present (Psych) Judgement: Good judgement present (Psych) Assessment & Plan Assessment & Plan (1) Pre-op examination: Code(s): Z01.818 - Encounter for other preprocedural examination Plan This is her first colonoscopy. She denies any bowel or upper GI problems. She denies any cardiac or respiratory problems. There are no prior problems with anesthesia or sedation. NO ID problems Her maternal grandfather had CRC, unsure if mother had colon polyps but there are polyps on her mothers side. Orders: Orders 2 Colonoscopy - GI Use Only Today Z01.818 - Encounter for other preprocedural examination Medications: New 2 sod picosulf-mag ox-citric ac 10 mg-3.5 gram- 12 gram/160 mL (Clenpiq) take first dose at 5-9PM evening before colonoscopy; 2nd dose the next day approximately 5 hrs before colonoscopy 160 mL PO DAILY 320 mL 0RF Coding Level of Care Code New Pt Level 3 (83117) Diagnoses Pre-op examination Z01.818
[2023-04-10 11:00] VITALS: BP 123/77; PULSE 86; BMI 41.0
== END 2023-04-10 12:01 | disposition home or self-care (01) ==
PROVIDERS: PCP Internal Medicine; Visit Provider Nurse Practitioner
DX: Z01.818 Encounter for other preprocedural examination (principal); Z12.11 Encounter for screening for malignant neoplasm of colon
CPT/HCPCS: S0285

== ENCOUNTER 2023-05-20 15:51 | Outpatient (AMB) | payer OTHER, SELFPAY ==
[2023-05-20 15:52] VITALS: BP 128/76; PULSE 76; O2SAT 98
--- NOTE | 2023-05-20 15:52 | AM.OFFWIN_ITS ---
Intake Vital Signs 05/20/23 15:52 Height 5 ft 3 in BP 128/76 Blood Pressure Location Rt brachial Position Sitting Pulse 76 Pulse Source Pulse Oximeter Pulse Oximetry (%) 98 Oxygen Delivery Method Room Air Intake Visit Reasons: EP thumb Intake Note: pt is here for c.o thumb pain for over 4 weeks ago, was getting better and recently started getting worse again Patient Tobacco Use Status: Never used Tobacco Allergies oxycodone Allergy (Unknown, Verified 05/20/23 15:52) itchy penicillin V Allergy (Unknown, Verified 05/20/23 15:52) rash Sulfa (Sulfonamide Antibiotics) Allergy (Unknown, Verified 05/20/23 15:52) rash atorvastatin Adverse Reaction (Unknown, Verified 05/20/23 15:52) bad headaches Do you need a note to return to daycare/school/sports/work: Yes HPI HPI Comments History of Present Illness Details Patient presents to the walk in today for complaints of injury to right thumb She initially hurt the thumb 3 weeks ago securing car seat in the vehicle had been feeling better until 2 days ago, she was walking and holding hands with her 5 year old son. 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 Brother No problems noted. 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 Answers questions appropriately. Fully engaged in examination. Skin: warm, dry, intact HEENT: Normocephalic. Hearing intact. Cardiac: External chest normal in appearance. Respiratory: No cough, audible wheezing or stridor. Abdomen: without gross distension. MS: No obvious deformities. swelling and tenderness over proximal phalynx. ROM intact. cap refill brisk. Neurological: Oriented to person, place, time and situation. Thought process intact. No gait abnormalities appreciated. Psychiatric: Appropriate mood and affect. Good judgment and insight. Assessment & Plan Assessment & Plan (1) Injury of thumb, right: Code(s): S69.91XA - Unspecified injury of right wrist, hand and finger(s), initial encounter Plan patient presented to the walkin today with complaints of right thumb pain after injury Xray ordered for evaluation. to be completed tomorrow Thumb splint applied, patient instructed on use Tylenol and motrin as needed Ice as tolerated. limit use of the thumb as possible Prescription for NSAIDs offered, patient prefers to take OTC motrin. Work note offered, light duty note offered, patient declines. Reassured patient that it does not appear to be a fracture, however, will call her if the xray reveals fracture. Follow up with ortho if pain persists. She is a current patient there, no new referral required. Follow up here for any new or worsening symptoms. All questions and concerns were answered, patient agrees with the plan. Orders: Orders XR hand RT 2V Today S69.91XA - Unspecified injury of right wrist, hand and finger(s), initial encounter Coding Level of Care Code Est Pt Level 3 (38257) Diagnoses Injury of thumb, right S69.91XA
== END 2023-05-20 16:33 | disposition home or self-care (01) ==
PROVIDERS: PCP Internal Medicine; Visit Provider Registered Nurse Emergency
DX: S69.91XA Unspecified injury of right wrist, hand and finger(s), initial encounter (principal)
CPT/HCPCS: 99213

== ENCOUNTER 2023-08-02 10:49 | Outpatient (REF) | payer OTHER, SELFPAY | END 2023-08-02 10:50 | disposition home or self-care (01) | LOC: HO.MAMMO 10:49 | PROVIDERS: PCP Internal Medicine; Visit Provider Internal Medicine | DX: Z12.31 Encounter for screening mammogram for malignant neoplasm of breast (principal) | CPT/HCPCS: 77063; 77067 ==

== ENCOUNTER → 2023-08-02 11:00 | Outpatient (BNV) | payer OTHER, SELFPAY | PROVIDERS: PCP Internal Medicine; Visit Provider Radiology Diagnostic Radiology | DX: Z12.31 Encounter for screening mammogram for malignant neoplasm of breast (principal) | CPT/HCPCS: 77063; 77067 ==

== ENCOUNTER 2023-09-13 09:22 | Day surgery (SDC) | payer OTHER, SELFPAY ==
--- NOTE | 2023-09-11 15:19 | HO.ANESPROP2 ---
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 of 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 (Acute) Vitamin D deficiency (Acute) Hypogonadotropic hypogonadism (Acute) Impingement syndrome of right shoulder (Acute) Well woman exam with routine gynecological exam (Acute) Insect bites (Acute) Non-toxic multinodular goiter (Acute) Hypothyroidism (Acute) Hyperlipidemia (Acute) Mammogram normal (Acute) Normal Pap smear (Acute) Annual physical exam (Acute) Obesity (Acute) Past Medical History Medical History Obesity Osteopenia Mass of right breast 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 Brother No problems noted. 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 Cognitive needs: No Hearing needs: No Vision needs: Yes Meds Allergies Allergy/AdvReac Type Severity Reaction Status Date / Time oxycodone Allergy Unknown itchy Verified 05/20/23 15:52 penicillin V Allergy Unknown rash Verified 05/20/23 15:52 Sulfa (Sulfonamide Allergy Unknown rash Verified 05/20/23 15:52 Antibiotics) atorvastatin AdvReac Unknown bad Verified 05/20/23 15:52 headaches Home Medications ?Medication ?Instructions ?Recorded ?Confirmed ?Last Taken ?Type calcium carbonate (Calcium 500) 500 mg PO DAILY 02/03/20 02/15/23 Unknown History multivitamin 1 tab PO DAILY 02/03/20 02/15/23 Unknown History Assessment and Plan Assessment Anesthesia Assessment: Chart Reviewed Documented by User: Arlen Calixto MD 09/13/23 10:13 [facility] Past Medical History Medical History Obesity Osteopenia Mass of right breast 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 Brother No problems noted. 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 [facility] Alcohol intake: current Patient Tobacco Use Status: Never used Tobacco e-Cigarette/Vaping Use: Never Used Second Hand Smoke Exposure: No Advance Directives: No Advance Directives Information Provided: Yes service: No Current occupational status: employed 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 Cognitive needs: No Hearing needs: No Vision needs: Yes Meds Allergies Allergy/AdvReac Type Severity Reaction Status Date / Time oxycodone Allergy Unknown itchy Verified 05/20/23 15:52 penicillin V Allergy Unknown rash Verified 05/20/23 15:52 Sulfa (Sulfonamide Allergy Unknown rash Verified 05/20/23 15:52 Antibiotics) atorvastatin AdvReac Unknown bad Verified 05/20/23 15:52 headaches Home Medications ?Medication ?Instructions ?Recorded ?Confirmed ?Last Taken ?Type calcium carbonate (Calcium 500) 500 mg PO DAILY 02/03/20 02/15/23 Unknown History multivitamin 1 tab PO DAILY 02/03/20 02/15/23 Unknown History Exam Airway Mallampati Class: II (metal behind top two front teeth) TM Dist: >3cm Neck ROM: Full Heart: rrr Lungs: cta Assessment and Plan Assessment Anesthesia Assessment: Anesthesia Plan Discussed Final Anesthetic Review Family History of Problems with Anesthesia: No History of Problems with Anesthesia: No NPO: Yes ASA Class: II Final Preanesthetic Review: No Changes in Pt Med Stat, Meds/Allgs Chart Reviewed and Consent Obtained/Reviewed Patient Risk: Low Procedure Risk: Low Anesthetic Plan Anesthetic Plan: MAC: Disposition: Standard PACU
[2023-09-13 09:58] VITALS: BP 116/74; PULSE 92; RESP 20; TEMP 36.5; O2SAT 98; BMI 41.2
--- NOTE | 2023-09-13 10:12 | MHC.SHP ---
Pre-Procedural Eval Section A - 24 Hr Update-Section A only Date of Service: 09/13/23 The patient is an INPATIENT: No The patient has been examined within 24 hours of the surgical procedure. The History & Physical has been completed within 30 days and I have reviewed it.: No Section B - Complete if H&P > 30 days Chief Complaint: Colon cancer screening, family history of colon ca Relevant Family History (Specify if Yes): Yes Relevant Social History: None Present Medications: see Short Stay Collaborative assessment Medical History: Significant History (Hypertension - pt denies High cholesterol Hypogonadotropic hypogonadism - need b/c pills Mass of the right breast Hypothyroid Goiter Cubital tunnel syndrome Carpal tunnel syndrome Osteopenia ) History of Previous Operations: Relevant previous surgery/procedure and date(s) (History of carpal tunnel surgery Hx laparoscopic cholecystectomy) Allergies: Allergies Allergy/AdvReac Type Severity Reaction Status Date / Time oxycodone Allergy Unknown itchy Verified 05/20/23 15:52 penicillin V Allergy Unknown rash Verified 05/20/23 15:52 Sulfa (Sulfonamide Allergy Unknown rash Verified 05/20/23 15:52 Antibiotics) atorvastatin AdvReac Unknown bad Verified 05/20/23 15:52 headaches Review of Systems Sugical H&P ROS: Negative: Constitution, Cardiovascular, Respiratory and Gastrointestinal Exam Surgical H&P Exam: Normal: Heart, Normal: Lungs, Normal: Extremities and Normal: Abdomen Plan Diagnosis/Plan: Unchanged I have reviewed the history and physical and performed a pertinent physical examination on my patient. No changes have occurred unless specified. Time Spent With Patient Time: Total time managing care of this patient today ____ minutes.
[2023-09-13 10:24] LABS: UPreg QC Valid YES; Urine Pregnancy NEGATIVE (NEGATIVE)
[2023-09-13] MEDS: Lactated Ringers 1,000 ML 100 ML IVCONT (10:24)
--- NOTE | 2023-09-13 11:35 | P.OPN-COLO_ITS ---
Colonoscopy Operative Note Operative Note Date of Service: 09/13/23 Narrative: COLONOSCOPY TILL CECUM WITH SNARE POLYPECTOMY, SUBMUCOSAL INJECTION, HEMOCLIP PLACEMENT AND APC Pre-op diagnosis: Colon cancer screening, family hx of colon cancer (maternal GF in his 40's) and polyps (maternal aunts and uncles). Post-op diagnosis:? Colon polyps, Diverticulosis Endoscopist:? Britany Conte MD Anesthesia:?MAC Consent: Indications for the procedure and potential complications of bleeding, perforation, reaction to medications and missed diagnosis were discussed with the patient and informed consent was obtained. Instrument: Olympus PCF H 190 L variable stiffness pediatric colonoscope Monitoring: Vital signs and clinical assessment, intermittent blood pressure monitoring, continuous EKG monitoring, Pulse oximetry and Carbon Dioxide monitoring were done throughout the procedure. Please see anesthesia flowsheet. Colon withdrawl time was 48 minutes. Procedure: The patient was placed in the left lateral decubitis position and pre-procedure medications were administered. After a digital rectal examination of the ano-rectum, the video colonoscope was inserted into the rectum and advanced through the colon to the cecum. The colonoscope was slowly withdrawn in a retrograde panoramic fashion and the colon mucosa was carefully examined including a retroflexed view of the rectum. Findings and interventions are described below. Procedure Difficulty: without difficulty Findings: Terminal Ileum: Not evaluated Cecum: Normal Ascending Colon: Normal Transverse Colon: A 2 cms flat polyp at 70 cms. Polyp was raised with 6 cc of Eleview and removed with a stiff hot snare. Polypectomy site was closed with 2 hemoclips and marked by Coral ink Descending Colon: Moderate diverticulosis Sigmoid Colon: A 12 - 15 mm sessile polyp - removed with a hot snare. Moderate diverticulosis Rectum: A 3.5 x 3 cms flat polyp in the distal rectum just internal to the anal verge. Polyp was raised with 7 cc of Eleview and removed piecemeal with a hot snare. Margins of polyppectomy site were treated with APC. One hemoclip was placed which resulted in some oozing from the margins - controlled with placement of a 2nd hemoclip and APC. Ano-rectum: Perianal skin tags Colon preparation: Good after some irrigation. [place] Bowel Preparation Scale Right colon; 2 Transverse colon: 2 Left colon; 2 (0 = Unprepared colon segment with mucosa not seen due to solid stool that cannot be cleared. 1 = Portion of mucosa of the colon segment seen, but other areas of the colon segment not well seen due to staining, residual stool and/or opaque liquid. 2 = Minor amount of residual staining, small fragments of stool and/or opaque liquid, but mucosa of colon segment seen well. 3 = Entire mucosa of colon segment seen well with no residual staining, small fragments of stool or opaque liquid) Impression and Post Procedure Diagnosis: Colonoscopy Findings: Two medium sized and one large polyps were removed Moderate diverticulosis seen in the left colon Plan: Pt has a FU appointment on 09/27/23 with Megan Bennett NP Repeat Colonoscopy in 4-6 months to check polypectomy sites in the transverse colon and rectum if polyps are adenomatous and 5 years if polyps are hyperplastic. Above findings were reviewed with the patient and relevant handouts were given and the discharge area. BIOPSIES SHOWED: A. Colon, transverse, polyp at 70 cm, polypectomy: Sessile serrated polyp/lesion without dysplasia. B. Colon, sigmoid, polypectomy: Tubular adenoma; negative for high-grade dysplasia. C. Rectum, polypectomy: Tubular adenoma; negative for high-grade dysplasia Follow-up colonoscopy scheduled on 03/20/2024
[2023-09-13 12:56] VITALS: BP 122/62; PULSE 77; RESP 16; TEMP 36.9; O2SAT 100
[2023-09-13 13:19] VITALS: BP 121/56; PULSE 74; RESP 17; TEMP 36.9; O2SAT 100
== END 2023-09-13 13:42 | disposition home or self-care (01) ==
PROVIDERS: Nurse Practitioner; PCP Internal Medicine; Visit Provider Internal Medicine Gastroenterology
PROC: 0DJD8ZZ Inspection of Lower Intestinal Tract, Via Natural or Artificial Opening Endoscopic (ICD-10-PCS; CPT 45378; principal; 2023-09-13 11:10)
DX: Z12.11 Encounter for screening for malignant neoplasm of colon (principal); D12.3 Benign neoplasm of transverse colon; D12.5 Benign neoplasm of sigmoid colon; D12.8 Benign neoplasm of rectum; K57.30 Diverticulosis of large intestine without perforation or abscess without bleeding; K64.4 Residual hemorrhoidal skin tags; Z80.0 Family history of malignant neoplasm of digestive organs; Z88.0 Allergy status to penicillin; Z88.2 Allergy status to sulfonamides; Z88.5 Allergy status to narcotic agent
CPT/HCPCS: 45385; 45381; 81025; 88305; J2250; J2704

== ENCOUNTER → 2023-09-13 09:22 | Outpatient (BNV) | payer OTHER, SELFPAY | PROVIDERS: PCP Internal Medicine; Visit Provider Internal Medicine Gastroenterology | DX: Z12.11 Encounter for screening for malignant neoplasm of colon (principal); Z80.0 Family history of malignant neoplasm of digestive organs; D12.5 Benign neoplasm of sigmoid colon; D12.8 Benign neoplasm of rectum; K57.90 Diverticulosis of intestine, part unspecified, without perforation or abscess without bleeding | CPT/HCPCS: 45381; 45385 ==

== ENCOUNTER 2023-09-18 10:21 | Outpatient (AMB) | payer OTHER, SELFPAY ==
--- NOTE | 2023-09-18 10:23 | A.OFFVIS_ITS ---
Vital Signs 09/18/23 10:30 Height 5 ft 3 in Weight 238 lb BMI 42.2 BP 147/70 H Blood Pressure Location Lt brachial Position Sitting Pulse 79 Intake Visit Reasons: s/p colon simran Intake Note: Patient is seen in office for post op assessment post colonoscopy. 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 She denies any bowel or upper GI problems. She denies any cardiac or respiratory problems. There are no prior problems with anesthesia or sedation. NO ID problems Her maternal grandfather had CRC, unsure if mother had colon polyps but there are polyps on her mothers side. COLONOSCOPY Findings: Terminal Ileum: Not evaluated Cecum: Normal Ascending Colon: Normal Transverse Colon: A 2 cms flat polyp at 70 cms. Polyp was raised with 6 cc of Eleview and removed with a stiff hot snare. Polypectomy site was closed with 2 hemoclips and marked by Coral ink Descending Colon: Moderate diverticulosis Sigmoid Colon: A 12 - 15 mm sessile polyp - removed with a hot snare. Moderate diverticulosis Rectum: A 3.5 x 3 cms flat polyp in the distal rectum just internal to the anal verge. Polyp was raised with 7 cc of Eleview and removed piecemeal with a hot snare. Margins of polyppectomy site were treated with APC. One hemoclip was olaced whihc resulted in some oozing from the margins - controlled with placement of a 2nd hemoclip and APC. Ano-rectum: Perianal skin tags Colon preparation: Good after some irrigation. Dilley Bowel Preparation Scale Right colon; 2 Transverse colon: 2 Left colon; 2 (0 = Unprepared colon segment with mucosa not seen due to solid stool that canno t be cleared. 1 = Portion of mucosa of the colon segment seen, but other areas of the colon segment not well seen due to staining, residual stool and/or opaque liquid. 2 = Minor amount of residual staining, small fragments of stool and/or opaque liquid, but mucosa of colon segment seen well. 3 = Entire mucosa of colon segment seen well with no residual staining, small fragments of stool or opaque liquid) Impression and Post Procedure Diagnosis: Colonoscopy Findings: Two medium sized and one large polyps were removed Moderate diverticulosis seen in the left colon Plan: Repeat Colonoscopy in 4-6 months to check polypectomy sites in the transverse colon and rectum if polyps are adenomatous and 5 years if polyps are hyperplastic. Above findings were reviewed with the patient and relevant handouts were given and the discharge area. Specimens and Sources: A: transverse colon polyp at 70 cm B: sigmoid polyp C: rectal polyp PATHOLOGY RESULTS Diagnosis A. Colon, transverse, polyp at 70 cm, polypectomy: Sessile serrated polyp/lesion without dysplasia. B. Colon, sigmoid, polypectomy: Tubular adenoma; negative for high-grade dyspla tolu. C. Rectum, polypectomy: Tubular adenoma; negative for high-grade dysplasia TODAY'S VISIT Patient is here today for follow-up and to discuss colonoscopy results. Patient denies any ill effects from the prep, anesthesia or procedure itself. Patient denies any melena or hematochezia. Large flat polyp removed from rectum, 2 clips placed. Two clips placed after removing polyps from transverse colon as well. Sigmoid colon smaller polyp all tubular adenoma without high-grade dysplasia or carcinoma. Recommendation was made for patient to return for colonoscopy in 4-6 months due to the size of the polyp. Patient was found to have moderate diverticulosis in sigmoid colon as well descending colon. Patient denies any abdominal pain or discomfort. Patient did well with anesthesia and well with prep. No complication or concerns voiced today. 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 Brother No problems noted. 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 Cognitive needs: No Hearing needs: No Vision needs: Yes Review of Systems Const Denies weight gain and Denies weight loss ENT Reports no additional complaints, Denies dysphagia and Denies odynophagia Card Reports no additional complaints Resp Reports no additional complaints GI Denies abdominal pain, Denies belching, Denies melena, Denies bloating, Denies change in bowel habits, Denies dysphagia, Denies excessive flatus, Denies dyspepsia, Denies heartburn, Denies diarrhea, Denies loose stools, Denies nausea, Denies odynophagia and Denies vomiting Musc Reports no additional complaints Neuro Reports no additional complaints Psych Reports no additional complaints Endo Reports no additional complaints Physical Exam Const General: healthy appearing, no acute distress and well developed Nutritional Appearance: well nourished Orientation/consciousness: patient oriented x3 Resp Effort & Inspection: normal respiratory effort, able to speak in complete sentences, no tracheal deviation and symmetric chest movement Auscultation: clear to auscultation bilaterally Cardio Rate: regular rate GI Inspection: Yes normal to inspection and No distended Palpation (GI): Soft to palpation, not firm, nontender and No hepatosplenomegaly present Auscultation: normal bowel sounds General: Yes no CVA tenderness Back/Spine/Pelvis Back: no CVA tenderness Skin General skin exam: elasticity normal, turgor normal and dry skin Neuro General: patient oriented x3 Psych Appearance: grossly normal Mental Status: mental status grossly normal Assessment & Plan Assessment & Plan (1) Tubular adenoma of colon: Code(s): D12.6 - Benign neoplasm of colon, unspecified Category: Medical (2) Status post colonoscopy: Code(s): Z98.890 - Other specified postprocedural states Plan Discussed with patient the importance of increasing fiber in her diet as well as trying to start probiotics. What to expect before during and after procedure discussed with patient. Patient did well with anesthesia and no complications after procedure. Will send patient split MiraLax prep with Dulcolax. Patient can start Dulcolax couple days before procedure to help her empty better. Patient is not on any anticoagulation medication. No history of sleep apnea. Procedure will be scheduled with patient today. Patient will call the office if she will have any GI concerning symptoms. Patient is agreeable to this plan and verbalizes understanding of instructions. She was given the opportunity to ask questions and all questions answered. Thank you for allowing me to participate in her care Medications: New bisacodyl (Dulcolax (bisacodyl)) Start taking 2 tablet every night 3-5 days before the procedure and 1 day before procedure take 2 tablets at noon then 2 tabs at 2 pm time followed by MiraLax prep 10 mg (2 x 5 mg) PO BEDTIME 16 tabs 0RF Z12.11 - Encounter for screening for malignant neoplasm of colon polyethylene glycol 3350 (Miralax) As directed by gastro[facility]ology department at [facility] 238 grams PO ONCE 238 grams 0RF Z12.11 - Encounter for screening for malignant neoplasm of colon Coding Level of Care Code Est Pt Level 3 (48554) Diagnoses Tubular adenoma of colon D12.6 Status post colonoscopy Z98.890 Time Spent (min) 30 Comment 20 minutes spent with patient and additional 10 minutes spent reviewing her records
[2023-09-18 10:30] VITALS: BP 147/70; PULSE 79; BMI 42.2
== END 2023-09-18 11:08 | disposition home or self-care (01) ==
PROVIDERS: PCP Internal Medicine; Visit Provider Nurse Practitioner Family
DX: D12.6 Benign neoplasm of colon, unspecified (principal); Z98.890 Other specified postprocedural states
CPT/HCPCS: 99213

== ENCOUNTER → 2023-09-18 10:21 | Outpatient (BNVA) | payer OTHER, SELFPAY | PROVIDERS: PCP Internal Medicine; Visit Provider Nurse Practitioner Family ==

== ENCOUNTER 2023-10-08 11:47 | Outpatient (AMB) | payer OTHER, SELFPAY ==
--- NOTE | 2023-10-08 11:51 | MHC.PC.OV ---
Vital Signs 10/08/23 11:55 10/08/23 11:58 Height 5 ft 2.4 in Weight 239 lb 4 oz BMI 43.2 BP 152/84 H 138/82 Blood Pressure Location Lt brachial Rt brachial Position Sitting Sitting Respiration 16 Pulse 81 Pulse Source Pulse Oximeter Temp 98.1 F Temp Source Oral Pulse Oximetry (%) 97 Oxygen Delivery Method Room Air Intake Visit Reasons: Transfer of Care/anxiety Intake Note: New patient visit Clinical Sociologist Required: No Is last menstrual period known: No Allergies oxycodone Allergy (Unknown, Verified 10/08/23 12:12) itchy penicillin V Allergy (Unknown, Verified 10/08/23 12:12) rash Sulfa (Sulfonamide Antibiotics) Allergy (Unknown, Verified 10/08/23 12:12) rash atorvastatin Adverse Reaction (Unknown, Verified 10/08/23 12:12) bad headaches Medication List - Last Reconciled 10/08/23 by Jenni Luna, [facility]- bisacodyl (Dulcolax (bisacodyl)) 10 mg (2 x 5 mg) PO BEDTIME calcium carbonate (Calcium 500) 500 mg PO DAILY levonorgestrel-ethinyl estrad 0.15 mg-30 mcg (91) 1 tab PO DAILY levothyroxine 75 mcg PO DAILY multivitamin 1 tab PO DAILY polyethylene glycol 3350 (Miralax) 238 grams PO ONCE pravastatin 10 mg PO BEDTIME Tobacco use date assessed: 10/08/23 Dental Screening Dental Screen Date: 10/08/23 Did you have a dental visit in the last 12 months?: Yes Did you have a dental problem in the last 6 months where you did not have access to dental care?: No Was dental information given to patient?: Patient has dentist HPI HPI Comments History of Present Illness Details 48-year-old female with hypothyroidism, obesity, hyperlipidemia, hypogonadism, nontoxic multinodular goiter, osteopenia, vitamin-D deficiency, diverticulosis, seasonal allergies Specialists: Endo Ortho GI - for colon only Health Maintenance: Mammo 07/13/23 colon 09/13/23 + tubular adenoma repeat in 6 months Pap 2018 next appt Fall 2023 Tdap 2017 Here [facility] to [facility] care CC: Anxiety and Depression Lots of anxiety, worse since COVID, worse over the years comes out of nowhere never been on meds Hard time losing wt no matter what i do mindless eating at home, emotional eating Mood is affected by seasons - worse in winter Not sleeping well cannot shut brain off, waking during the night hard time staying asleep No OTC meds to help sleep - sole caregiver for son and does not want to be unable to respond to him While is interested in therapy - cost and time is a limiting factor Denies SI/HI. HLD - admits to forgetting to take statin at HS. 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 Brother No problems noted. 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 1. Little interest or pleasure in doing things: several days 2. Feeling down, depressed, or hopeless: more than half the days 3. Trouble falling or staying asleep, or sleeping too much: nearly every day 4. Feeling tired or having little energy: nearly every day 5. Poor appetite or overeating: more than half the days 6. Feeling bad about yourself - or that you are a failure or have let yourself or your family down: more than half the days 7. Trouble concentrating on things, such as reading the newspaper or watching television: more than half the days 8. Moving or speaking so slowly that other people could have noticed. Or the opposite - being so fidgety or restless that you have been moving around a lot more than usual: not at all 9. Thoughts that you would be better off or of hurting yourself in some way: not at all Total score: 15 Depression Screening Interpretation: Positive Depression Screening Follow-up: New Medication prescribed and Follow-up Visit Requested Depression Screening Done: Yes 45957 - PHQ-9 Billing: Yes Source: Developed by Drs. Jerald Sharma, Jordyn Beauchamp, Kaz Rossi and colleagues, with an educational tyra from [employer]. Thrive Questionnaire Date Thrive assessed: 10/08/23 I am a: Patient What is your living situation today?: I have a steady place to live Within the past 12 months, did the food you bought not last and you didn't have the money to get more?: Never true Within the past 12 months, did you worry whether your food would run out before you got money to buy more?: Never true Do you have trouble paying for medicines?: No Do you have trouble getting transportation to medical appointments?: No Do you have trouble paying your heating and electricity bill?: No Do you have trouble taking care of your child, family member or friend?: No Do you have trouble with day-to-day activities such as bathing, preparing meals, shopping, managing finances, etc.?: No Are you currently unemployed and looking for a job?: No Are you interested in more education?: No Please select the resources that you would like help with: None Currently or been in a relationship where the following occur: no concerns reported THRIVE Score: 0 AUDIT C Alcohol Use Questionnaire (AUDIT-C) 1. How often do you have a drink containing alcohol?: Never 3. How often do you have six or more drinks on one occasion?: Never Total Score: 0 Score Reviewed/Action Taken: Yes ANJALI-7 AMB Questionnaire ANJALI-7 Date ANJALI - 7 assessed: 10/08/23 Feeling nervous, anxious, or on edge: 2 = More than half the days Not being able to stop or control worryin = More than half the days Worrying too much about different things: 2 = More than half the days Trouble relaxin = More than half the days Being so restless that it is hard to sit still: 2 = More than half the days Becoming easily annoyed or irritable: 2 = More than half the days Feeling afraid as if something awful might happen: 1 = Several days Total ANJALI-7 score (0-4 normal; 5-9 mild; 10-14 moderate; 15-21 severe): 13 Source: Developed by Drs. Jerald Sharma, Jordyn Beauchamp, Kaz Rossi and colleagues, with an educational tyra from [employer]. ANJALI-7 Assessment Billing ANJALI-7 Assessment Tool: ANJALI-7 Assessment 55108 Review of Systems Const All systems reviewed & are unremarkable except as noted in HPI and below Physical exam (Primary Care) Vital Signs: Last Vital Signs Temp 98.1 F 10/08/23 11:55 Pulse 81 10/08/23 11:55 Resp 16 10/08/23 11:55 BP 138/82 10/08/23 11:58 Pulse Ox 97 10/08/23 11:55 Oxygen Delivery Method Room Air 10/08/23 11:55 BMI result Body Mass Index 43.2 BMI Assessment/Plan discussion: High (start wellbutrin) BMI High, discussed plan: other Tobacco/Smoking Status: Tobacco use Status Tobacco use date assessed 10/08/23 10/08/23 11:57 Patient Tobacco Use Status Never used Tobacco 10/08/23 11:57 e-Cigarette/Vaping Use Never Used 10/08/23 11:57 PHQ-9: PHQ-9 Score PHQ-9: Total score 15 10/08/23 14:06 Depression Screening Interpretation: Positive Depression Screening Follow-up: New Medication prescribed and Follow-up Visit Requested Thrive Assessment: Date of Thrive Assessment Date Thrive assessed 10/08/23 10/08/23 11:59 Currently or been in a relationship where the following occur: no concerns reported Const Other: Awake alert pleasant Scleras nonicteric bilat RRR LS CTAB Abd soft, nontender, no hepatomegaly No edema BLE Mildly anxious, appropriate and future oriented Assessment and Plan Assessment & Plan (1) Hyperlipidemia: Comment: on pravastatin 10 mg po QD Repeat lipids Fall 2023 Code(s): E78.5 - Hyperlipidemia, unspecified Qualifiers: Hyperlipidemia type: mixed hyperlipidemia Qualified Code(s): E78.2 - Mixed hyperlipidemia (2) Hypothyroidism: Comment: on levothyroxine taking as directed euthyroid on most recent labs managed by Endo Code(s): E03.9 - Hypothyroidism, unspecified Qualifiers: Hypothyroidism type: due to Salma's thyroiditis Qualified Code(s): E03.8 - Other specified hypothyroidism; E06.3 - Autoimmune thyroiditis (3) Vitamin D deficiency: Comment: managed by Endo Code(s): E55.9 - Vitamin D deficiency, unspecified (4) MDD (major depressive disorder), recurrent episode: Code(s): F33.9 - Major depressive disorder, recurrent, unspecified Qualifiers: Major depression episode severity: moderate Qualified Code(s): F33.1 - Major depressive disorder, recurrent, moderate (5) ANJALI (generalized anxiety disorder): Code(s): F41.1 - Generalized anxiety disorder (6) Adult BMI 40.0-44.9 kg/sq m: Code(s): Z68.41 - Body mass index [BMI] 40.0-44.9, adult (7) Hypogonadotropic hypogonadism: Comment: managed by Endo at [facility] Code(s): E23.0 - Hypopituitarism Plan: Total time spent caring for the patient today was 45 minutes. This includes time spent before the visit reviewing the chart, time spent during the visit, and time spent after the visit on documentation This note is constructed using voice recognition software. While every effort has been made to ensure accuracy in remote computer terminal operator, still errors may have been included Sometimes, these errors may affect the content or meaning of the given sentence . Orders: Orders Vitamin D 1,25 dihydroxy 01/06/24 E03.8 - Other specified hypothyroidism, E06.3 - Autoimmune thyroiditis, E55.9 - Vitamin D deficiency, unspecified, E78.5 - Hyperlipidemia, unspecified Comprehensive [place]. Panel Fast 01/06/24 E03.8 - Other specified hypothyroidism, E06.3 - Autoimmune thyroiditis, E55.9 - Vitamin D deficiency, unspecified, E78.5 - Hyperlipidemia, unspecified Hemoglobin A1c 01/06/24 E03.8 - Other specified hypothyroidism, E06.3 - Autoimmune thyroiditis, E55.9 - Vitamin D deficiency, unspecified, E78.5 - Hyperlipidemia, unspecified Lipid Panel 01/06/24 E03.8 - Other specified hypothyroidism, E06.3 - Autoimmune thyroiditis, E55.9 - Vitamin D deficiency, unspecified, E78.5 - Hyperlipidemia, unspecified TSH reflex Free T4 01/06/24 E03.8 - Other specified hypothyroidism, E06.3 - Autoimmune thyroiditis, E55.9 - Vitamin D deficiency, unspecified, E78.5 - Hyperlipidemia, unspecified Microalbumin, Random (w Creat) 01/06/24 E03.8 - Other specified hypothyroidism, E06.3 - Autoimmune thyroiditis, E55.9 - Vitamin D deficiency, unspecified, E78.5 - Hyperlipidemia, unspecified Medications: New bupropion HCl XL (Wellbutrin XL) 150 mg PO QAM 90 tabs 0RF Patient Instructions: Get labs done in the Fall of 2023, fasting to eval your chronic conditions Start Wellbutrin XL 150mg po daily to help lose weight and help anxiety and depression. If you develop worsening mood sx, please notify me. RTO in 6 weeks to f/u on mood and wt loss, sooner as needed. Coding Level of Care Code Est Pt Level 5 (20629) Diagnoses Mixed hyperlipidemia E78.2 Hyperlipidemia type: mixed hyperlipidemia 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 E03.8; E06.3 Hypothyroidism type: due to Salma's thyroiditis Vitamin D deficiency E55.9 Moderate episode of recurrent major depressive disorder F33.1 Major depression episode severity: moderate ANJALI (generalized anxiety disorder) F41.1 Adult BMI 40.0-44.9 kg/sq m Z68.41 Hypogonadotropic hypogonadism E23.0 Additional Codes ANJALI-7 Assessment Billing - ANJALI-7 Assessment Tool: ANJALI-7 Assessment [id number] ([id number])
[2023-10-08 11:55] VITALS: BP 152/84; PULSE 81; RESP 16; TEMP 36.7; O2SAT 97; BMI 43.2
[2023-10-08 11:58] VITALS: BP 138/82
== END 2023-10-08 12:43 | disposition home or self-care (01) ==
PROVIDERS: PCP Internal Medicine; Visit Provider Nurse Practitioner Family
DX: E23.0 Hypopituitarism (principal); F33.1 Major depressive disorder, recurrent, moderate; Z68.41 Body mass index [BMI] 40.0-44.9, adult; E66.01 Morbid (severe) obesity due to excess calories; E78.2 Mixed hyperlipidemia; E03.8 Other specified hypothyroidism; E06.3 Autoimmune thyroiditis; E55.9 Vitamin D deficiency, unspecified; F41.1 Generalized anxiety disorder
CPT/HCPCS: 96127; 99215

== ENCOUNTER 2023-10-29 15:42 | Outpatient (AMB) | payer OTHER, SELFPAY ==
--- NOTE | 2023-10-29 15:46 | AM.OFFWIN_ITS ---
Intake Vital Signs 10/29/23 15:47 Height 5 ft 2 in Weight 237 lb BMI 43.3 BP 158/86 H Blood Pressure Location Lt brachial Position Sitting Pulse 98 Temp 98.8 F Temp Source Oral Pulse Oximetry (%) 98 Intake Visit Reasons: EP Sinus pressure Intake Note: pt here c/o sinus pressure. Has had head cold and pain/pressure now into teeth Patient Tobacco Use Status: Never used Tobacco Allergies oxycodone Allergy (Unknown, Verified 10/29/23 15:46) itchy penicillin V Allergy (Unknown, Verified 10/29/23 15:46) rash Sulfa (Sulfonamide Antibiotics) Allergy (Unknown, Verified 10/29/23 15:46) rash atorvastatin Adverse Reaction (Unknown, Verified 10/29/23 15:46) bad headaches Do you need a note to return to daycare/school/sports/work: No HPI HPI Comments History of Present Illness Details 48-year-old female comes in today compla ining of left-sided maxillary sinus pain and pressure increasing intensity over the last 2 weeks. Started with the URI that has lingered. She denies any fever chills cough PFSH Medical History (Updated 10/29/23 @ 16:08 by NIC Gonzalez) Impingement syndrome of right shoulder De Quervain's tenosynovitis, left Numbness of left hand Cubital tunnel syndrome, bilateral Tubular adenoma of colon Obesity Osteopenia Mass of right breast [facility] (current) use of 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 Vitamin D deficiency Hypogonadotropic hypogonadism Well woman exam with routine gynecological exam Non-toxic multinodular goiter Hypothyroidism Hyperlipidemia Mammogram normal Normal Pap smear Annual physical exam Mixed hyperlipidemia Salma's thyroiditis Thyromegaly Hypogonadism Obesity Surgical History (Updated 09/18/23 @ 10:34 by BERENICE Hoffmann) Hx of colonoscopy (09/13/23) History of carpal tunnel surgery Hx laparoscopic cholecystectomy Family History Father Cancer of kidney FH: HTN (hypertension) Mother Breast cancer Brother No problems noted. Brother No problems noted. 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 Current occupational exposures/hazards: No Cognitive needs: No Hearing needs: No Vision needs: Yes Review of Systems Const All systems reviewed & are unremarkable except as noted in HPI and below Eyes Reports no additional complaints ENT Reports nasal congestion, Reports sinus pain and Reports sinus pressure Card Reports no additional complaints Resp Reports no additional complaints GI Reports no additional complaints Reports no additional complaints Physical Exam Vital Signs: Last Vital Signs Temp 98.8 F 10/29/23 15:47 Pulse 98 10/29/23 15:47 BP 158/86 H 10/29/23 15:47 Pulse Ox 98 10/29/23 15:47 BMI result Body Mass Index 43.3 HEENT Head: Yes normal to inspection, Yes normocephalic and Yes atraumatic Ears: hearing grossly normal bilaterally, TM's normal bilaterally, TM normal on the right and EAC's normal General nose exam: Normal external nose present Face and sinus: Yes sinus tenderness and Yes Facial tenderness on exam of face and sinuses Throat: Yes posterior oropharynx normal and Yes postnasal drainage Resp Effort & Inspection: normal respiratory effort Auscultation: clear to auscultation bilaterally Cardio Rate: regular rate Rhythm: regular rhythm Heart sounds: S1 normal heart sound present and S2 normal heart sound present Assessment & Plan Assessment & Plan (1) Sinusitis: Code(s): J32.9 - Chronic sinusitis, unspecified Plan: The patient is put on antibiotic for sinusitis and we will continue to do saline washes. Plan See plan Medications: New doxycycline hyclate 100 mg PO BID 7 days 14 caps 0RF Coding Level of Care Code Est Pt Level 3 (38305) Diagnoses Sinusitis J32.9
[2023-10-29 15:47] VITALS: BP 158/86; PULSE 98; TEMP 37.1; O2SAT 98; BMI 43.3
== END 2023-10-29 16:33 | disposition home or self-care (01) ==
PROVIDERS: PCP Internal Medicine; Visit Provider Physician Assistant Medical
DX: J32.9 Chronic sinusitis, unspecified (principal)
CPT/HCPCS: 99213

== ENCOUNTER 2023-11-28 12:51 | Outpatient (AMB) | payer OTHER, SELFPAY ==
--- NOTE | 2023-11-28 13:05 | MHC.PC.OV ---
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 Stamping Required: No Allergies oxycodone Allergy (Unknown, Verified 11/28/23 13:07) itchy penicillin V Allergy (Unknown, Verified 11/28/23 13:07) rash Sulfa (Sulfonamide Antibiotics) Allergy (Unknown, Verified 11/28/23 13:07) rash atorvastatin Adverse Reaction (Unknown, Verified 11/28/23 13:07) bad headaches Medication List - Last Reconciled 11/28/23 by Jenni Luna, [facility]- bisacodyl (Dulcolax (bisacodyl)) 10 mg (2 x 5 mg) PO BEDTIME bupropion HCl XL (Wellbutrin XL) 150 mg PO QAM calcium carbonate (Calcium 500) 500 mg PO DAILY doxycycline hyclate 100 mg PO BID 7 days levonorgestrel-ethinyl estrad 0.15 mg-30 mcg (91) 1 tab PO DAILY levothyroxine 75 mcg PO DAILY multivitamin 1 tab PO DAILY polyethylene glycol 3350 (Miralax) 238 grams PO ONCE pravastatin 10 mg PO BEDTIME Tobacco use date assessed: 10/08/23 Dental Screening Dental Screen Date: 10/08/23 HPI HPI Comments History of Present Illness Details 48-year-old female with hypothyroidism, obesity, hyperlipidemia, hypogonadism, nontoxic multinodular goiter, osteopenia, vitamin-D deficiency, diverticulosis, seasonal allergies Specialists: [facility] - for colon only Health Maintenance: Mammo 07/13/23 colon 09/13/23 + tubular adenoma repeat in 6 months, will schedule Pap 2018 next appt Fall 2023 Tdap 2018 Here today for a 6 week follow up on this started Wellbutrin. This medication was added to help with her generalized anxiety disorder as well as to help curb mindless eating to aid in weight loss. She has been taking the medication as directed and reports that she feels so much better. Reports that her mind is clear, not having panic attacks anymore and has also decreased her mindless eating. Clinically her weight remains stable. Discussed the potential for increasing, however she is very happy with the results so far and wishes to stay at the same dose for now. In other regards she does report exposure to cat urine via her neighbor at her [employer]. They share a common wall. She reports that she can smell the urine coming in through the esquivel mainly in her bathroom and her garage. She worries about the long-term health effects of this exposure. She is working very diligently to remedy this issue. Spent some time reviewing up-to-date with her today. Could not find any direct link to exposure to cat urine and health effects. Be that as it may, I did let her know that I was not very well-versed on this and would have to look into this further. Plan Continue Wellbutrin XL 150 mg p.o. daily. Refill sent today. Routine follow up scheduled in February with repeat labs. Advised to follow up sooner should she need anything. This note is constructed using voice recognition software. While every effort has been made to ensure accuracy in health services information specialist, still errors may have been included Sometimes, these errors may affect the content or meaning of the given sentence . Total time spent caring for the patient today was 30 minutes. This includes time spent before the visit reviewing the chart, time spent during the visit, and time spent after the visit on documentation REPLACED BY [facility] Medical History Impingement syndrome of right shoulder De Quervain's tenosynovitis, left Numbness of left hand Cubital tunnel syndrome, bilateral Tubular adenoma of colon Obesity Osteopenia Mass of right breast [facility] (current) use of 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 Vitamin D deficiency Hypogonadotropic hypogonadism Well woman exam with routine gynecological exam Non-toxic multinodular goiter Hypothyroidism Hyperlipidemia Mammogram normal Normal Pap smear Annual physical exam Mixed hyperlipidemia Salma's thyroiditis Thyromegaly Hypogonadism Obesity Surgical History Hx of colonoscopy (09/13/23) History of carpal tunnel surgery Hx laparoscopic cholecystectomy Family History Father Cancer of kidney FH: HTN (hypertension) Mother Breast cancer Brother No problems noted. Brother No problems noted. 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 Jerald Sharma, Jordyn Beauchamp, Kaz Rossi and colleagues, with an educational tyra from [employer]. Physical exam (Primary Care) Vital Signs: Last Vital Signs BP 134/62 11/28/23 13:08 Tobacco/Smoking Status: Tobacco use Status Tobacco use date assessed 10/08/23 11/28/23 13:07 Patient Tobacco Use Status Never used Tobacco 11/28/23 13:07 e-Cigarette/Vaping Use Never Used 11/28/23 13:07 Thrive Assessment: Date of Thrive Assessment Date Thrive assessed 10/08/23 11/28/23 13:07 Assessment and Plan Assessment & Plan (1) ANJALI (generalized anxiety disorder): Code(s): F41.1 - Generalized anxiety disorder Medications: Refilled bupropion HCl XL (Wellbutrin XL) 150 mg PO QAM 90 tabs 1RF Coding Level of Care Code Est Pt Level 4 (62821) Diagnoses ANJALI (generalized anxiety disorder) F41.1
[2023-11-28 13:08] VITALS: BP 134/62; PULSE 90; O2SAT 98; BMI 43.3
== END 2023-11-28 13:35 | disposition home or self-care (01) ==
PROVIDERS: PCP Internal Medicine; Visit Provider Nurse Practitioner Family
DX: F41.1 Generalized anxiety disorder (principal)
CPT/HCPCS: 99214

== ENCOUNTER 2023-12-31 12:05 | Outpatient (AMB) | payer OTHER, SELFPAY ==
[2023-12-31 12:16] VITALS: BMI 43.3
--- NOTE | 2023-12-31 12:16 | MHC.OFFVIS ---
Vital Signs 12/31/23 12:16 Height 5 ft 2 in Weight 237 lb BMI 43.3 Intake Visit Reasons: OV-L CTR 08/16/22 AR, numbness Intake Note: Arlen is a 48 yo- female who presents to office with complaints of numbness in her left ring and left pinky finger. She also has sharp pain and muscle twitching in her upper arm for the last 2 weeks Has tried taking Tyenol and or Ibuprofen, but the symtoms didn't improve.. Patient has a known hx of left CTR 08/16/[address] Clark. Allergies oxycodone Allergy (Unknown, Verified 12/31/23 12:17) itchy penicillin V Allergy (Unknown, Verified 12/31/23 12:17) rash Sulfa (Sulfonamide Antibiotics) Allergy (Unknown, Verified 12/31/23 12:17) rash atorvastatin Adverse Reaction (Unknown, Verified 12/31/23 12:17) bad headaches HPI HPI OV-L CTR 08/16/22 AR, numbness: Details: Nai is a 48 year old right hand dominant woman who returns to discuss her left cubital tunnel syndrome. She complains of numbness in the left ring & small fingers. Symptoms now constant in the last 2 weeks She also complains of pain in her left upper arm, particularly near her elbow, which she describes as sharp, and says she has experienced muscle twitches for ~2 weeks now. She denies any falls, injury, or overuse of her arm. She has a hx of left carpal tunnel release, DOS: 08/16/22, with normal sensation following surgery. She has known right carpal & cubital tunnel syndrome, she denies any right hand numbness. She has a hx of ANJALI & MDD. [facility] Medical History Impingement syndrome of right shoulder De Quervain's tenosynovitis, left Numbness of left hand Cubital tunnel syndrome, bilateral Tubular adenoma of colon Obesity Osteopenia [facility] of right breast [facility] ([facility]) use of 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 Vitamin D deficiency Hypogonadotropic hypogonadism Well woman exam with routine gynecological exam Non-toxic multinodular goiter Hypothyroidism Hyperlipidemia Mammogram normal Normal Pap smear Annual physical exam Mixed hyperlipidemia Salma's thyroiditis Thyromegaly Hypogonadism Obesity Surgical History Hx of colonoscopy (09/13/23) History of carpal tunnel surgery Hx laparoscopic cholecystectomy Family History Father Cancer of kidney FH: HTN (hypertension) Mother Breast cancer Brother No problems noted. Brother No problems noted. 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 Normal sensation in the median nerve distribution No thenar or intrinsic wasting Good APB muscle belly firing and good finger cross Tenderness with Tinel's at the cubital tunnel Vascular: Cap refill brisk ROM: Can bring fingers closed to a fist and back out to full extension. She demonstrates pain radiating over the dorsal aspect of forearm, elbow, and upper arm Again we see a small mass consistent with a volar ganglion measuring ~7mm in diameter over the volar radial aspect of her wrist. It is not particularly tender, and she says it is not particularly bothersome. Nerve Conduction Study: IMPRESSION:? 1. Mild bilateral median neuropathy across carpal tunnel. 2. Mild bilateral ulnar neuropathy across cubital tunnel. 3. Left Telly-Victor M anastomosis, a normal variant. Ibrahima Segovia MD 06/28/2022 Assessment & Plan Assessment & Plan (1) Carpal tunnel syndrome on both sides: Code(s): G56.03 - Carpal tunnel syndrome, bilateral upper limbs Category: Medical Plan Assessment & plan: 1. Left Cubital tunnel syndrome, mild Telly-Victor M anastomosis, a normal variant Now with dense numbness in the small finger for ~2 weeks, proximally early December I educated her about this condition Sudden onset of small finger numbness, etiology unclear I ordered a repeat NCS She will follow up when completed for review. 2. Left arm pain Over the dorsal aspect of forearm, elbow, and upper arm Etiology unclear, onset ~2 weeks ago 3. Left Carpal tunnel syndrome, S/P release DOS: 08/16/22 Pre-operatively with constant numbness, worse at night. Now with normal sensation and good resolution of her nighttime symptoms 4. Left De Quervain's Tenosynovitis, early Negative Navarro test No complaints today 5. Left volar wrist ganglion cyst Measuring ~7mm in diameter No complaints today 6. Right Carpal tunnel syndrome, mild 7. Right Cubital tunnel syndrome, mild Patient denies any numbness No intervention warranted She can follow up prn Scribed for Tabitha Clark MD by Reji Stark, general medical practitioner, on 12/31/23 at 12:40 PM, EST. Orders: Orders NE nerve conduction velocity Today R20.0 - Anesthesia of skin, R20.2 - Paresthesia of skin Coding Level of Care Code Est Pt Level 3 (81236) Diagnoses Carpal tunnel syndrome on both sides G56.03
== END 2023-12-31 12:52 | disposition home or self-care (01) ==
PROVIDERS: PCP Internal Medicine; Visit Provider Orthopaedic Surgery
DX: G56.03 Carpal tunnel syndrome, bilateral upper limbs (principal)
CPT/HCPCS: 99213

== ENCOUNTER → 2023-12-31 12:05 | Outpatient (BNVA) | payer OTHER, SELFPAY | PROVIDERS: PCP Internal Medicine; Visit Provider Orthopaedic Surgery ==

== ENCOUNTER 2024-01-08 13:24 | Outpatient (REF) | payer OTHER, SELFPAY ==
--- NOTE | 2024-01-08 | EMG_ITS ---
Chief complaint: EMG 06/2022 showed bilateral Carpal Tunnel Syndrome and ulnar neuropathy at the elbow (slowing of conduction velocity across elbow of ulnar motor nerves). Nai had surgery left CTR 08/16/2022 with good results. However she continues to have left medial elbow pain and paresthesias on left 4th and 5th digits. Reason for referral: Evaluate for ulnar neuropathy Referred by: Dr. Clark Procedure done: Left upper extremity NCS/EMG Precautions and/or limitations: None The limb temperature was monitored continuously and remained between 32-36 degrees C during the performance of the NCS. Ulnar motor NCS was performed with moderate elbow flexion between 70-90 degrees, with across-elbow distance of 10 cm. Nerve Conduction Studies Anti Sensory Summary Table ?Stim Site NR Onset (ms) Norm Onset (ms) Peak (ms) Norm Peak (ms) O-P Amp (?V) Norm O-P Amp Site1 Site2 Delta-0 (ms) Dist (cm) Franklin (m/s) Norm Franklin (m/s) Left Median Anti Sensory (2nd Digit) Wrist ? 2.6 3.4 <3.6 91.9 >10 Wrist 2nd Digit 2.6 14.0 54 Left Radial Anti Sensory (Thumb) Forearm ? 1.4 1.9 <3.1 39.3 Forearm Thumb 1.4 0.0 Left Ulnar Anti Sensory (5th Digit) Wrist ? 2.3 3.2 <3.7 70.9 >15.0 Wrist 5th Digit 2.3 14.0 61 Motor Summary Table ?Stim Site NR Onset (ms) Norm Onset (ms) O-P Amp (mV) Norm O-P Amp iAmp (mV) Amp (1st) (%) Site1 Site2 Delta-0 (ms) Dist (cm) Franklin (m/s) Norm Franklin (m/s) Left Median Motor (Abd Poll Brev) Wrist ? 3.8 <3.9 6.5 >4.5 7.7 100.0 Elbow Wrist 3.6 18.5 51 >45 Elbow ? 7.4 8.2 9.5 126.2 Left Ulnar Motor (Abd Dig Minimi) Wrist ? 2.9 <3.0 7.6 >5 9.2 100.0 B Elbow Wrist 2.7 16.5 61 >45 B Elbow ? 5.6 7.3 9.0 96.1 A Elbow B Elbow 1.4 10.0 71 >45 A Elbow ? 7.0 6.9 8.7 90.8 Left Ulnar Motor (FDI) Wrist ? 3.0 <3.0 7.9 >5 8.8 100.0 B Elbow Wrist 2.9 16.5 57 >45 B Elbow ? 5.9 5.5 6.5 69.6 A Elbow B Elbow 1.6 10.0 63 >45 A Elbow ? 7.5 5.7 6.8 72.2 EMG ?Side Muscle Nerve Root Ins Act Fibs Psw Amp Dur Poly Recrt Int Pat Comment Left 1stDorInt Ulnar C8-T1 Nml Nml Nml Nml Nml 0 Nml Complete Left FlexCarRad Median C6-7 Nml Nml Nml Nml Nml 0 Nml Complete Left Biceps Musculocut C5-6 Nml Nml Nml Nml Nml 0 Nml Complete Left Triceps Radial C6-7-8 Nml Nml Nml Nml Nml 0 Nml Complete Left Deltoid Axillary C5-6 Nml Nml Nml Nml Nml 0 Nml Complete Paraspinal EMG ?Side Muscle Nerve Root Ins Act Fibs Psw Comment Left Cervical Upper Rami Nml Nml Nml Left Cervical Mid Rami Nml Nml Nml Left Cervical Lower Rami Nml Nml Nml FINDINGS: Ulnar motor nerves, recording both at ADM and FDI muscles, showed normal distal latencies, amplitudes and conduction velocities. No conduction block seen. All other nerves tested were within normal. Evidence of possible Telly Victor M anastomosis was seen, which is a normal anatomic variant. Concentric needle EMG was performed in selected muscles of the left upper extremity and cervical paraspinals. Study did not reveal signs of electric abnormalities as shown in the table above. IMPRESSION: 1. This is a normal study. 2. There is no electrodiagnostic evidence for median neuropathy, ulnar neuropathy, brachial plexopathy, or cervical radiculopathy. CLINICAL COMMENT: No evidence of ulnar neuropathy seen.. Median neuropathy resolved, status post CTR. Evidence of possible Telly Victor M anastomosis was seen, which is a normal anatomic variant, this was also seen last EMG,. Thank you for your kind referral. Ioana Cordova MD, ABDI Board Certified, [place] [employer] and Rehabilitation (ABPMR) Board Certified, [place] Board of Electrodiagnostic Medicine (ABEM) [facility] [id number] [facility]
== END 2024-01-08 13:25 | disposition home or self-care (01) ==
LOC: HO.NEURO 13:24
PROVIDERS: PCP Nurse Practitioner Family; Visit Provider Orthopaedic Surgery
DX: R20.0 Anesthesia of skin (principal); R20.2 Paresthesia of skin
CPT/HCPCS: 95886; 95909

== ENCOUNTER → 2024-01-08 13:27 | Outpatient (BNV) | payer OTHER, SELFPAY | PROVIDERS: PCP Nurse Practitioner Family; Visit Provider Physical Medicine & Rehabilitation | DX: R20.0 Anesthesia of skin (principal); R20.2 Paresthesia of skin; M25.522 Pain in left elbow | CPT/HCPCS: 95886; 95909 ==

== ENCOUNTER 2024-02-04 07:02 | Outpatient (REF) | payer OTHER, SELFPAY ==
[2024-02-04 08:05] LABS: Estimated Average Glucose 100 mg/dL; Hemoglobin A1C 113.2756 umol/L; Hemoglobin A1c % 5.1 % (<6.0)
[2024-02-04 08:37] LABS: Creatinine Urine 328.25 mg/dL; Microalbum/Creatinine Ratio Ur 3.3 ug/mg cr (<30)
[2024-02-04 08:39] LABS: Alanine Aminotransferase 21 U/L (0-31); Albumin Level 4.1 g/dL (3.5-5.0); Alkaline Phosphatase 71 U/L (39-117); Anion Gap 12 (12-20); Aspartate Amino Transferase 17 U/L (5-31); Bilirubin Total 0.5 mg/dL (0.0-1.0); Blood Urea Nitrogen 15 mg/dL (9-16); Calcium 9.5 mg/dL (8.4-10.2); Carbon Dioxide 23 mmol/L (22-29); Chloride 108 mmol/L (96-108); Cholesterol 224 mg/dL (<200); Estimated Glomerular Filt Rate > 60; Glucose Fasting 80 mg/dL (60-99); HDL Cholesterol 54 mg/dL (>40); LDL Cholesterol Calculated 150 mg/dL (<100); Sodium 139 mmol/L (135-145); Total Protein 7.7 g/dL (6.5-8.0); Triglycerides 102 mg/dL (<150)
[2024-02-04 08:54] LABS: TSH reflex Free T4 1.16 uIU/mL (0.32-4.0)
[2024-02-08 05:33] LABS: VITAMIN D (1,25 OH) D3 46 pg/mL; Vit D (1,25-Dihydroxy) Total 46 pg/mL (18-72); Vitamin D (1,25 OH) D2 <8 pg/mL
== END 2024-02-04 07:03 | disposition home or self-care (01) ==
LOC: HO.LAB 07:02
PROVIDERS: PCP Nurse Practitioner Family; Visit Provider Nurse Practitioner Family
DX: E55.9 Vitamin D deficiency, unspecified (principal); E03.8 Other specified hypothyroidism; E06.3 Autoimmune thyroiditis; E78.5 Hyperlipidemia, unspecified; Z13.1 Encounter for screening for diabetes mellitus
CPT/HCPCS: 36415; 80053; 80061; 82043; 82570; 82652; 83036; 84443

== ENCOUNTER 2024-02-12 07:53 | Outpatient (AMB) | payer OTHER, SELFPAY ==
--- NOTE | 2024-02-12 07:57 | MHC.PC.OV ---
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: No Is last menstrual period known: Yes Last menstrual period: 01/05/24 Post menopausal: No Patient : No Allergies oxycodone Allergy (Unknown, Verified 02/12/24 08:09) itchy penicillin V Allergy (Unknown, Verified 02/12/24 08:09) rash Sulfa (Sulfonamide Antibiotics) Allergy (Unknown, Verified 02/12/24 08:09) rash atorvastatin Adverse Reaction (Unknown, Verified 02/12/24 08:09) bad headaches Medication List - Last Reconciled 02/12/24 by Jenni Luna, BRICKLAYER HELPER- bisacodyl (Dulcolax (bisacodyl)) 10 mg (2 x 5 mg) PO BEDTIME bupropion HCl XL (Wellbutrin XL) 150 mg PO QAM calcium carbonate (Calcium 500) 500 mg PO DAILY levonorgestrel-ethinyl estrad 0.15 mg-30 mcg (91) 1 tab PO DAILY levothyroxine 75 mcg PO DAILY multivitamin 1 tab PO DAILY polyethylene glycol 3350 (Miralax) 238 grams PO ONCE pravastatin 10 mg PO BEDTIME Tobacco use date assessed: 10/08/23 Dental Screening Dental Screen Date: 10/08/23 Did you have a dental visit in the last 12 months?: Yes Did you have a dental problem in the last 6 months where you did not have access to dental care?: No Was dental information given to patient?: Patient has dentist HPI HPI Comments History of Present Illness Details 48-year-old female with hypothyroidism, obesity, hyperlipidemia, hypogonadism, nontoxic multinodular goiter, osteopenia, vitamin-D deficiency, diverticulosis, seasonal allergies Surgical hx: CTS on LUE, lap hannah 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 01/2024 lipid profile mildly worse otherwise WNL; Has been w/o statin Chronic conditions managed. Tolerant of meds. Taking as directed. Eyes - exam 02/2024 monitoring cupping of optic nerves ? congenital; pressures WNL. Annual visits Hearing - WNL Skin - no issues, annual skin checks Normal elimination Mood: anxiety is gone. Feels lonely and isolated as single mom. Does not take a lot of time for herself. Denies SI/HI. Not in counseling d/t cost. Parasthesia of LUE: started months ago; Did see Ortho at [employer] [employer]. At this time, sx of Left 4th and 5th finger better, now w/ Tip of pointer and middle finger numb at times. This is new since 01/2024 EMG/NCV which was normal; Laying on left side, whole arm feels asleep w/in seconds. Driving causes pain from elbow into armpit. Muscle twitches that goes into scap. Denies known injury. She is right handed. Nothing makes it better. Plan: See if [facility] [facility] has no copay for counseling in network, if so send me message so i can place referral. Take time for yourself. Make yourself a priority. Positive self talk -- because you're worth it ! Reach out PRN. Check C spine MRI. Based on results, send to Pain Mgmt for eval and tx of L arm parasthesia. Cont all meds as directed Cont care w/ team. RTO 6 months for routine f/u of chronic conditions, labs 1 week before, sooner PRN An additional 20 was spent addressing the problem(s) noted at todays visit. This includes time spent before the visit reviewing the chart, time spent during the visit, and time spent after the visit on documentation [facility] Medical History Impingement syndrome of right shoulder De Quervain's tenosynovitis, left Numbness of left hand Cubital tunnel syndrome, bilateral Tubular adenoma of colon Obesity Osteopenia Mass of right breast senior living (current) use of 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 Vitamin D deficiency Hypogonadotropic hypogonadism Well woman exam with routine gynecological exam Non-toxic multinodular goiter Hypothyroidism Hyperlipidemia Mammogram normal Normal Pap smear Annual physical exam Mixed hyperlipidemia Salma's thyroiditis Thyromegaly Hypogonadism Obesity Surgical History Hx of colonoscopy (09/13/23) History of carpal tunnel surgery Hx laparoscopic cholecystectomy Family History Father Cancer of kidney FH: HTN (hypertension) Mother Breast cancer Brother No problems noted. Brother No problems noted. 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 How many drinks containing alcohol do you have on a typical day when you are drinking?: 1 or 2 3. How often do you have six or more drinks on one occasion?: Never Total Score: 0 ANJALI-7 AMB Questionnaire ANJALI-7 Date ANJALI - 7 assessed: 10/08/23 Source: Developed by Drs. Jerald Sharma, Jordyn Beauchamp, Kaz Rossi and colleagues, with an educational tyra from [employer]. Physical exam (Primary Care) Vital Signs: Last Vital Signs Pulse 78 02/12/24 08:05 Pulse Ox 98 02/12/24 08:05 BMI result Body Mass Index 44.3 BMI Assessment/Plan discussion: High BMI High, discussed plan: lifestyle Tobacco/Smoking Status: Tobacco use Status Tobacco use date assessed 10/08/23 02/12/24 07:58 Patient Tobacco Use Status Never used Tobacco 02/12/24 07:58 e-Cigarette/Vaping Use Never Used 02/12/24 07:58 Thrive Assessment: Date of Thrive Assessment Date Thrive assessed 10/08/23 02/12/24 07:58 Advance Care Planning discussion: Exists, not on file Date of discussion: 02/12/24 Who was present: self Forms completed: Health Care Proxy Time spent: 1-15 minutes, not on file Actual minutes spent: 2 Const Other: General: Well developed, well nourished, in no acute distress. Appears stated age. Head: Normocephalic, atraumatic. Eyes: Pupils are equal, round and reactive to light and accommodation. Conjunctivae are clear. Vision grossly normal. Ears: TMs clear AU, EACS WNL Nose: Patent, without discharge. Mouth: There are no ulcers or lesions noted. No inflammation, no post nasal drip, no plaques nor exudates. Neck: Supple, no adenopathy. Nontender thyromegaly Lungs: Clear to auscultation bilaterally. No rales, rhonchi or wheeze noted. Good air flow in all dahl. Heart: Regular rate and rhythm. No murmurs, click, rubs or gallops are noted. Abdomen: Bowel sounds present in all quadrants. The abdomen is soft, nontender, with no masses or organomegaly noted. No hernias are noted. Musculoskeletal: Joints are nontender, without swelling, redness, or effusions. Range of motion is observed to be normal. Unable to reproduce paresthesias in the left arm. The left forearm is neurovascularly intact. Normal strength and tone. Full range of motion of the shoulder. Full range of motion of the neck. Pulses: Peripheral pulses are equal and palpable bilaterally. Extremities: No clubbing, cyanosis nor edema is noted. Neurologic: Gait and station normal. Cranial Nerves 2-12 intact. Motor strength grossly symmetrical and intact. No sensory loss. Balance normal. Skin: No rashes, ulcers, or lesions noted. Turgor is good. Skin color is good. Hair and nails are without abnormalities. Psych: Normal eye contact, affect and mood appropriate, and normal interactions. Patient is alert and appropriate to context. 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 (2) Arm paresthesia, left: Code(s): R20.2 - Paresthesia of skin Category: Medical Plan: . (3) Hyperlipidemia: Comment: on pravastatin 10 mg po QD Code(s): E78.5 - Hyperlipidemia, unspecified Category: Medical Qualifiers: Hyperlipidemia type: mixed hyperlipidemia Qualified Code(s): E78.2 - Mixed hyperlipidemia Plan: . (4) Hypothyroidism: Comment: on levothyroxine taking as directed euthyroid on most recent labs managed by Endo Code(s): E03.9 - Hypothyroidism, unspecified Category: Medical Qualifiers: Hypothyroidism type: due to Salma's thyroiditis Qualified Code(s): E03.8 - Other specified hypothyroidism; E06.3 - Autoimmune thyroiditis Plan: . (5) ANJALI (generalized anxiety disorder): Code(s): F41.1 - Generalized anxiety disorder Category: Medical Plan: . (6) Class 3 obesity: Code(s): E66.813 - Obesity, class 3 Category: Medical Plan: . Orders: Orders MR cervical spine wo con Today R20.2 - Paresthesia of skin Lipid Panel 07/04/24 E03.8 - Other specified hypothyroidism, E06.3 - Autoimmune thyroiditis, E78.2 - Mixed hyperlipidemia TSH reflex Free T4 07/04/24 E03.8 - Other specified hypothyroidism, E06.3 - Autoimmune thyroiditis, E78.2 - Mixed hyperlipidemia Medications: Refilled pravastatin 10 mg PO BEDTIME 90 tabs 1RF E78.5 - Hyperlipidemia, unspecified Patient Instructions: Look at [facility] for cholesterol Health screenings for women You should visit your health care provider from time to time, even if you are healthy. The purpose of these visits is to: Screen for medical issues Assess your risk for future medical problems Encourage a healthy lifestyle Update vaccinations and other preventive care services Help you get to know your provider in case of an illness Information Even if you feel fine, you should still see your provider for regular checkups. These visits can help you avoid problems in the future. For example, the only way to find out if you have high blood pressure is to have it checked regularly. High blood sugar and high cholesterol levels also may not have any symptoms in the early stages. A simple blood test can check for these conditions. There are specific times when you should see your provider or receive specific health screenings. The [place] Preventive Services Task Force publishes a list of recommended screenings. Below are screening guidelines for women ages 18 to 39. BLOOD PRESSURE SCREENING Your blood pressure should be checked at least once every 3 to 5 years if: Your blood pressure is in the normal range (top number less than 120 mm Hg and bottom number less than 80 mm Hg) You don't have risk factors for high blood pressure Ask your provider if you need your blood pressure checked more often if: The top number is 120 to 129 mm Hg or the bottom number is 70 to 79 mm Hg You have diabetes, heart disease, kidney problems, are overweight, or have certain other health conditions You have a first-degree relative with high blood pressure You are Black You had high blood pressure during a If the top number is 130 mm Hg or greater or the bottom number is 80 mm Hg or greater, this is considered stage 1 hypertension. Schedule an appointment with your provider to learn how you can reduce your blood pressure. Watch for blood pressure screenings in your area. Ask your provider if you can stop in to have your blood pressure checked. BREAST CANCER SCREENING Experts do not agree about the benefits of breast self-exams in finding breast cancer or saving lives. Talk to your provider about what is best for you. A screening mammogram is not recommended for most women under age 40. Your provider may discuss and recommend mammograms, MRI scans, or ultrasounds if you have an increased risk for breast cancer, such as: A mother or sister who had breast cancer at a young age (most often starting screening earlier than the age the close relative was diagnosed) You carry a high-risk genetic marker CERVICAL CANCER SCREENING Cervical cancer screening should start at age 21 years unless your provider advises otherwise. After the first test: Women ages 21 through 29 should have a Pap test every 3 years. Exoprts do not agree on whether HPV testing is recommended for this age group. Women ages 30 through 65 should be screened with either a Pap test every 3 years or the HPV test every 5 years or both tests every 5 years (called cotesting ). Women who have been treated for precancer (cervical dysplasia) should continue to have Pap tests for 20 years after treatment or until age 65, whichever is longer. If you have had your uterus and cervix removed (total hysterectomy), and you have not been diagnosed with cervical cancer or precancer (high grade cervical neoplasia), you do not need cervical cancer screening. CHOLESTEROL SCREENING Cholesterol screening should begin at: Age 45 for women with no known risk factors for coronary heart disease Age 20 for women with known risk factors for coronary heart disease Repeat cholesterol screening should take place: Every 5 years for women with normal cholesterol levels More often if changes occur in lifestyle (including weight gain and diet) More often if you have diabetes, heart disease, kidney problems, or certain other conditions DIABETES SCREENING You should be screened for diabetes starting at age 35 and then repeated every 3 years if you have no risk factors for diabetes. Screening may need to start earlier and be repeated more often if you have other risk factors for diabetes, such as: You have a first degree relative with diabetes. You are overweight or have obesity. You have high blood pressure, prediabetes, or a history of heart disease. Screening for diabetes should be done if you are planning to become and you are overweight and have other risk factors such as high blood pressure. DENTAL EXAM Go to the dentist once or twice every year for an exam and cleaning. Your dentist will evaluate if you need more frequent visits. EYE EXAM Have an eye exam every 5 to 10 years before age 40. If you have vision problems, have an eye exam every 2 years or more often if recommended by your provider. You should have an eye exam that includes an examination of your retina (back of your eye) at least every year if you have diabetes. IMMUNIZATIONS Commonly needed vaccines include: Flu shot: get one every year. COVID-19 vaccine: ask your provider what is best for you. Tetanus-diphtheria and acellular pertussis (Tdap) vaccine: have one at or after age 19 as one of your tetanus-diphtheria vaccines if you did not receive it as an adolescent. Tetanus-diphtheria: have a booster (or Tdap) every 10 years. Varicella vaccine: receive 2 doses if you never had chickenpox or the varicella vaccine. Hepatitis B vaccine: receive 2, 3, or 4 doses, depending on your exact circumstances. Measles, mumps, and rubella (MMR) vaccine: receive 1 to 2 doses if you are not already immune to MMR. Your provider can tell you if you are immune. Ask your provider about the human papillomavirus (HPV) vaccine if: You have not received the HPV vaccine in the past You have not completed the full vaccine series (you should catch up on this shot) Ask your provider if you should receive other immunizations if you have certain health problems that increase your risk for some diseases such as pneumonia. INFECTIOUS DISEASE SCREENING Women who are sexually active should be screened for chlamydia and gonorrhea up until age 25. Women 25 years and older should be screened for chlamydia and gonorrhea if at high risk. Screening for hepatitis C: All adults ages 18 to 79 should get a one-time test for hepatitis C. people should be screened at every . Screening for human immunodeficiency virus (HIV): All people ages 15 to 65 should get a one-time test for HIV. Depending on your lifestyle and medical history, you may also need to be screened for infections such as syphilis and HIV, as well as other infections. PHYSICAL EXAM All adults should visit their provider from time to time, even if they are healthy. The purpose of these visits is to: Screen for disease Assess your risk of future medical problems Encourage a healthy lifestyle Update your vaccinations and other preventive care services Maintain a relationship with a provider in case of an illness Your height, weight, and BMI should be checked at every exam. During your exam, your provider may ask you about: Depression and anxiety Diet and exercise Alcohol and tobacco use Safety issues, such as using seat belts, smoke detectors, and intimate partner violence Your medicines and risk for interactions SKIN SELF-EXAM Your provider may check your skin for signs of skin cancer, especially if you're at high risk, such as if you: Have had skin cancer before Have close relatives with skin cancer Have a weakened immune system OTHER SCREENING Talk with your provider about colon cancer screening if you have a strong family history of colon cancer or polyps, or if you have had inflammatory bowel disease or polyps yourself. Routine bone density screening of women under 40 is not recommended.
[2024-02-12 08:05] VITALS: BP 140/78; PULSE 78; O2SAT 98; BMI 44.3
== END 2024-02-12 08:59 | disposition home or self-care (01) ==
PROVIDERS: PCP Nurse Practitioner Family; Visit Provider Nurse Practitioner Family
DX: Z00.00 Encounter for general adult medical examination without abnormal findings (principal); R20.2 Paresthesia of skin; Z68.41 Body mass index [BMI] 40.0-44.9, adult; E66.813 Obesity, class 3; E78.2 Mixed hyperlipidemia; E03.8 Other specified hypothyroidism; E06.3 Autoimmune thyroiditis; F41.1 Generalized anxiety disorder

== ENCOUNTER → 2024-02-12 07:53 | Outpatient (BNVA) | payer OTHER, SELFPAY | PROVIDERS: PCP Nurse Practitioner Family; Visit Provider Nurse Practitioner Family ==

== ENCOUNTER 2024-02-18 14:18 | Outpatient (REF) | payer OTHER, SELFPAY ==
--- NOTE | ~2024-02-18 | MR_ITS ---
EXAMINATION: MR CERVICAL SPINE WITHOUT CONTRAST CLINICAL INFORMATION: Paresthesia of skin; left arm pain, numbness, radiates to left hand, fingers. No injury, no surgeries. COMPARISON: No prior. TECHNIQUE: Multiplanar multisequence MR imaging of the cervical spine was done prior to and without the administration IV gadolinium. Examination was performed on a 1.5 Linda Siemens unit, using standard sequences, including bilateral oblique sagittal T2 sequences for neural foraminal evaluation. FINDINGS: CORONAL ALIGNMENT: -Normal. SAGITTAL ALIGNMENT: -Straightening of the normal lordosis, with a minimal reversal at C5, nonspecific. -2 mm degenerative anterolisthesis of C7 on T1. CRANIOCERVICAL JUNCTION/C1-2 ARTICULATIONS: -Intact and aligned. -Mild degenerative arthrosis present. VERTEBRAL BODIES/BONE MARROW: -There are no compression deformities. -There is no bone marrow edema or abnormal infiltrating bone marrow signal. -Bone island in the right aspect of T1. DISCS: -Moderate loss of disc height and signal spanning C2-C7, most significant at C4-5, C5-6, and C7. CERVICAL CORD: -Normal in signal throughout. -Left ventral cord impingement at C5-6, and C6-7 due to focal disc herniations as described below. No associated abnormal signal. PARAVERTEBRAL SOFT TISSUES: -No edema or fluid collections. -Thyroid obscured by a saturation band. -Paravertebral and paraspinous musculature appears normal. -Vertebral arteries demonstrate normal flow voids and are codominant. VISUALIZED INTRACRANIAL STRUCTURES: -No abnormalities identified. AXIAL DISC SPACE IMAGING: C2-C3: There is a small central disc protrusion which indents upon the ventral thecal sac but does not definitively contact cord. This results in mild central canal narrowing. There is preserved CSF signal surrounding the cord. Moderate left and mild right hypertrophic facet changes are present. There is moderate left and mild right neural foraminal narrowing. C3-C4: Mild to moderate right greater than left hypertrophic facet changes are present. There is a minimal disc bulge, without mass effect or significant narrowing of the central canal. Lateral recesses are patent. There is moderate to severe right, and moderate left neural foraminal stenosis. C4-C5: Diffuse bulging disc present, with superimposed left paracentral and lateral protrusion of disc material. This indents upon the ventral thecal sac, contacts, and minimally flattens the left ventral aspect of the cord, without definite cord impingement, gross deformity, or signal abnormality. There are mild to moderate bilateral hypertrophic facet changes, mild bilateral uncinate hypertrophy, right greater than left. Findings result in mild to moderate central canal narrowing, moderate right greater than left lateral recess narrowing, and moderate to severe bilateral neural foraminal narrowing. C5-C6: Shallow diffuse bulging disc with a superimposed large left paracentral and lateral disc extrusion with annular fissuring/tearing. The extruded component measures approximately 0.4 x 1.0 x 0.6 cm (AP, TRV, CC); (series 8, image 16). This contacts, flattens, and deforms the left ventral aspect of the cord, resulting in mild cord impingement. Coupled with mild hypertrophic facet changes, and mild bilateral uncinate hypertrophy, findings result in moderate to severe central canal stenosis, severe left lateral recess stenosis, and moderate left greater than right neural foraminal stenosis. C6-C7: There is a large left far lateral extrusion of disc material superimposed upon a left paracentral and lateral disc protrusion. This contacts, deforms, and impinges the left lateral aspect of the cervical cord, with no signal abnormality present, and results in severe central canal stenosis and left lateral recess stenosis. There is moderate hypertrophic uncinate change bilaterally, mild degenerative facet changes bilaterally, with the combination of findings resulting in moderate left and mild right neural foraminal narrowing. C7-T1: 2 mm degenerative anterolisthesis. There is a left foraminal and lateral to foramen disc osteophytic complex which results in moderate to severe left neural foraminal narrowing. There is no central canal narrowing, lateral recess narrowing, or right neural foraminal narrowing. MR/MR cervical spine wo con IMPRESSION: 1. Left lateral disc extrusions at C5-6 and C6-7 resulting in flattening and impingement of the left aspect of the cervical cord and significant left lateral recess stenosis. There is no cord edema or abnormal signal. 2. Left paracentral and lateral protrusion of disc material at C4-5, which contacts and minimally flattens the left ventral aspect of the cord without significant cord impingement. 3. Combination of disc bulging, degenerative facet and uncinate hypertrophy results in multilevel foraminal narrowing: moderate to severe on the right at C3-4, moderate to severe bilaterally at C4-5, moderate left greater than right at C5-6, and moderate left at C6-7. 4. Please see the body the report for details and ancillary findings. Electronically signed by: Presley Herrera MD 02/26/2024 12:58 PM EDT RP
== END 2024-02-18 14:19 | disposition home or self-care (01) ==
LOC: HO.MRI 14:18
PROVIDERS: PCP Nurse Practitioner Family; Visit Provider Nurse Practitioner Family
DX: R20.2 Paresthesia of skin (principal)
CPT/HCPCS: 72141

== ENCOUNTER → 2024-02-18 14:28 | Outpatient (BNV) | payer OTHER, SELFPAY | PROVIDERS: PCP Nurse Practitioner Family; Visit Provider Radiology Diagnostic Radiology | DX: R20.2 Paresthesia of skin (principal) | CPT/HCPCS: 72141 ==

== ENCOUNTER 2024-02-25 07:51 | Outpatient (AMB) | payer OTHER, SELFPAY ==
--- NOTE | 2024-02-25 07:55 | A.OFFVIS_ITS ---
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 Doing well with no concerns. She tries to eat healthy and stays active with exercise. Doing well on control to cycle, she denies any contraindications to control such as: migraines with aura, history of DVT or pulmonary emboli, high blood pressure, liver disease, thrombolic disorders, Lupus, +JOSE M, breast cancer, or smoking. Currently is not sexually active. She denies vaginal itching and irritation. STI screening offered; she declines. Denies family history of breast, ovarian or colon cancer. Last pap smear 2018, negative. Has close follow up with colonoscopy due to history of large polyp. Has a steamblaster for skin surveillance. Mammogram: 2023. [facility] Medical History Impingement syndrome of right shoulder De Quervain's tenosynovitis, left Numbness of left hand Cubital tunnel syndrome, bilateral Tubular adenoma of colon Obesity Osteopenia Mass of right breast detention (current) use of 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 Vitamin D deficiency Hypogonadotropic hypogonadism Well woman exam with routine gynecological exam Non-toxic multinodular goiter Hypothyroidism Hyperlipidemia Mammogram normal Normal Pap smear Annual physical exam Mixed hyperlipidemia Salma's thyroiditis Thyromegaly Hypogonadism Obesity Surgical History Hx of colonoscopy (09/13/23) History of carpal tunnel surgery Hx laparoscopic cholecystectomy Family History (Updated 02/25/24 @ 08:25 by BERENICE George) Father Cancer of kidney FH: HTN (hypertension) Mother Breast cancer Brother No problems noted. Brother No problems noted. 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 Current occupational exposures/hazards: No Cognitive needs: No Hearing needs: No Vision needs: Yes Female Reproductive History Menstrual Date of last menstrual period: 12/31/23 Total pregnancies: 1 Full term: 1 Number of Living Children: 1 Date of last pap smear: 12/16/18 (neg pap and hpv) Date of Mammogram: 08/02/23 (Birad 1) Review of Systems Const All systems reviewed & are unremarkable except as noted in HPI and below Reports as per HPI Eyes Reports no additional complaints ENT Reports no additional complaints Card Reports no additional complaints Resp Reports no additional complaints GI Reports as per HPI and Reports no additional complaints Reports as per HPI Musc Reports no additional complaints Skin/Breast Reports as per HPI Neuro Reports no additional complaints Psych Reports no additional complaints Endo Reports no additional complaints Sadiq/Lymph Reports no additional complaints Aller/Immun Reports no additional complaints Physical Exam Vital Signs: Last Vital Signs BP 120/70 02/25/24 07:57 BMI result Body Mass Index 43.5 Const General: cooperative, healthy appearing, no acute distress, well developed and alert Orientation/consciousness: patient oriented x3 HEENT Head: Yes normal to inspection Eyes General: appearance normal, both eyes and all related structures Neck Neck: Yes normal visual inspection Thyroid: Thyroid normal Chest Chest palpation & inspection: normal inspection of the chest and other (no puckering, dimpling, peau de orange, retraction, discharge, masses) Breast/axilla inspection: normal inspection of the breasts Breast/axilla palpation: normal palpation of the breasts Resp Effort & Inspection: normal respiratory effort GI Inspection: Yes normal to inspection Palpation (GI): Soft to palpation Rectal Exam - Female: deferred General: Yes bladder normal to palpation External Female Exam: normal external appearance and normal appearance of the urethra Speculum Exam - Vagina: normal appearance of the vagina, normal palpation and normal vaginal discharge Speculum Exam - Cervix: normal appearance of the cervix and normal palpation Bimanual exam- vagina & uterus: normal bimanual exam, normal palpation, uterine size normal, bladder normal to palpation, normal palpation and non-tender Bimanual Exam- Adnexa, other: no masses Skin General skin exam: no rashes or lesions noted Rashes: no rashes Neuro General: patient oriented x3 Cognition (Neuro): normal cognition Extrem General: Yes normal to inspection Psych Attitude: cooperative Thought process: Normal thought process present Assessment & Plan Assessment & Plan (1) Well woman exam with routine gynecological exam: Code(s): Z01.419 - Encounter for gynecological examination (general) (routine) without abnormal findings Category: Medical Plan Discussed: Current recommendations for pap smears per ASCCP guidelines. Breast awareness and periodic breast exams. Maintain a healthy lifestyle including a well balanced diet and routine exercise. Use condoms for STI and prevention. Mammogram yearly. control hormone use warnings: go to ER if and loss of vision, blindness, severe headache, chest pain or difficulty breathing, severe abdominal pain, or any pain or swelling in an extremity. Patient verbalizes understanding and agrees to the plan of care. She was given opportunity to ask questions and all questions were answered to the best of my ability. RTO in one year for annual data management examination. This note is constructed using voice recognition software. While every effort has been made to ensure accuracy, technology sales consultant errors may have been included. Orders: Orders PAP + HPV E6/E7 rfx 18/45 Today Z01.419 - Encounter for gynecological examination (general) (routine) without abnormal findings Medications: Refilled levonorgestrel-ethinyl estrad 0.15 mg-30 mcg (91) 1 tab PO DAILY 91 tabs 4RF Coding Level of Care Code Est Pt Prev Care 40-64y(41302) Diagnoses Well woman exam with routine gynecological exam Z01.419
[2024-02-25 07:57] VITALS: BP 120/70; BMI 43.5
== END 2024-02-25 08:27 | disposition home or self-care (01) ==
PROVIDERS: PCP Internal Medicine; Visit Provider Advanced Practice Midwife
DX: Z01.419 Encounter for gynecological examination (general) (routine) without abnormal findings (principal)
CPT/HCPCS: 99396

== ENCOUNTER 2024-02-25 07:51 | Outpatient (REF) | payer OTHER, SELFPAY ==
[2024-02-29 08:49] LABS: HPV 16 RNA NOT DETECTED (NOT DETECTED); HPV mRNA E6/E7 Detected (Not Detected)
== END 2024-02-25 07:52 | disposition home or self-care (01) ==
LOC: HO.LNP 07:51
PROVIDERS: PCP Internal Medicine; Visit Provider Advanced Practice Midwife
DX: Z01.419 Encounter for gynecological examination (general) (routine) without abnormal findings (principal)
CPT/HCPCS: 87624; 87625; 88175

== ENCOUNTER 2024-03-06 08:51 | Outpatient (AMB) | payer OTHER, SELFPAY ==
--- NOTE | 2024-03-06 09:06 | HO.SPINEOV ---
Vital Signs 03/06/24 09:07 Height 5 ft 2 in Weight 235 lb BMI 43.0 Intake Visit Reasons: cervical disc displacement Intake Note: Ms. De La Rosa is here today c/o Neck pain and numbness that radiate to the Left arm. 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 She is a very nice 48-year-old female works here at [employer] that has had pain and numbness in her left arm and hand for few months. It started abruptly, and has been intermittent on and off for the last few months. It can give her numbness and loss of sensation in her hand and it will go upper arm. It can be uncomfortable at times. If she moves her arm removes her head in a particular direction sometimes she can make it go away. The arm can feel weak sometimes when she is doing particular activities and there is pain and numbness but in general she is has not lost any function of her arm. She did take some nonsteroidal anti-inflammatories and Tylenol when things started, but it did not really make anything improve so she stopped it. She has done no physical therapy, cortisone injections etc.. She has an MRI showing large herniated disc at C6-7 and C5-6 on the left. No myelopathic symptoms. PMH: Salma's thyroiditis which left her with hypothyroidism, high cholesterol, cholecystectomy, left carpal tunnel release Social hx: She has not smoke, drink or use any recreational drugs Medications: Levothyroxine pravastatin Allergies: Penicillin, sulfa and oxycodone. Oxycodone makes her itchy Physical exam: He is awake alert oriented no acute distress, she has excellent strength in bilateral upper extremities, reflexes are 3+ and symmetric, no Uriostegui's sign, no clonus, gait is normal Imaging review: Cervical MRI at [place] shows disc herniation on the left at C5-6 which is moderate in size, no cord compression or cord signal change seen with this. Large disc herniation on the left at C6-7 with obliteration of the left C7 foramen. Some displacement of the cord, but no cord signal change seen. Impression: 48-year-old female presents with intermittent pain and tingling with numbness in her left arm and hand which has been going on for couple of months now. The pain is problematic at times but it is not disabling or affecting her ability to function. She does have some trouble sleeping on the left side but she is not losing hours of sleep for days on end. Her motor exam and reflexes are all intact and normal. I reviewed her imaging with Dr. Mcnulty, she does have the 2 disc herniations on the left at C5-6 and C6-7. If she had more pain we would have an indication for surgery but at this time it is really not bothering her to any degree where it is affecting her daily life. There is a very good chance that it will just go away on its own. If the symptoms escalate, we could consider an anterior cervical diskectomy with fusion. She will let us know if anything gets worse. Thank you for allowing us to care for your patient. The total time spent with this visit with this patient was 45 minutes reviewing history, physical exam, cervical imaging review, and implementation of treatment plan or further diagnostic testing Tino Mcnulty MD,PhD [facility] Coding Level of Care Code New Pt Level 4 (82077) Diagnoses Cervical disc herniation M50.20
[2024-03-06 09:07] VITALS: BMI 43.0
== END 2024-03-06 09:26 | disposition home or self-care (01) ==
LOC: HO.HNS 08:51
PROVIDERS: PCP Nurse Practitioner Family; Referring Provider Nurse Practitioner Family; Visit Provider Physician Assistant
DX: M50.20 Other cervical disc displacement, unspecified cervical region (principal)
CPT/HCPCS: 99204

== ENCOUNTER → 2024-03-06 08:51 | Outpatient (BNVA) | payer OTHER, SELFPAY | PROVIDERS: PCP Nurse Practitioner Family; Referring Provider Nurse Practitioner Family; Visit Provider Physician Assistant ==

== ENCOUNTER 2024-03-20 10:36 | Day surgery (SDC) | payer OTHER, SELFPAY ==
[2024-03-18 11:55] VITALS: BMI 42.2
--- NOTE | 2024-03-18 14:19 | P.CONAN_ITS ---
HPI - Anesthesia Eval Consult details Narrative: 48yo F for Colonoscopy [facility] Active Problems Active Problems: All Active Problems Cervical disc herniation (Acute) Class 3 obesity (Acute) Arm paresthesia, left (Acute) Adult BMI 40.0-44.9 kg/sq m (Acute) ANJALI (generalized anxiety disorder) (Acute) MDD (major depressive disorder), recurrent episode (Acute) Well woman exam with routine gynecological exam (Acute) Annual physical exam (Acute) Tubular adenoma of colon (Acute) Osteopenia (Acute) Mass of right breast (Acute) penitentiary (current) use of 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 (Acute) Vitamin D deficiency (Acute) Hypogonadotropic hypogonadism (Acute) Non-toxic multinodular goiter (Acute) Hypothyroidism (Acute) Hyperlipidemia (Acute) Mammogram normal (Acute) Normal Pap smear (Acute) Past Medical History Medical History (Updated 03/18/24 @ 11:51 by Emelyn Shetty RN) Tubular adenoma of colon Cubital tunnel syndrome, bilateral Obesity Numbness of left hand De Quervain's tenosynovitis, left Osteopenia 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 Brother No problems noted. 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 Housing: Condominium Alcohol intake: current Alcohol intake frequency: holidays/special occasions only Patient Tobacco Use Status: Never used Tobacco e-Cigarette/Vaping Use: Never Used Second Hand Smoke Exposure: No service: No Current occupational status: employed 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 Current occupational exposures/hazards: No Cognitive needs: No Hearing needs: No Vision needs: Yes Meds Allergies Allergy/AdvReac Type Severity Reaction Status Date / Time oxycodone Allergy Intermediate Itching Verified 03/18/24 11:52 penicillin V Allergy Intermediate rash Verified 03/18/24 11:52 Sulfa (Sulfonamide Allergy Intermediate rash Verified 03/18/24 11:52 Antibiotics) atorvastatin AdvReac Intermediate Headache Verified 03/18/24 11:52 Home Medications ?Medication ?Instructions ?Recorded ?Confirmed ?Last Taken ?Type calcium carbonate (Calcium 500) 500 mg PO DAILY 02/03/20 03/18/24 Unknown History multivitamin 1 tab PO DAILY 02/03/20 03/18/24 Unknown History Exam Height,Weight and Vital Signs: Height 5 ft 3 in Weight 107.955 kg Assessment and Plan Assessment Anesthesia Assessment: Chart Reviewed Final Anesthetic Review Family History of Problems with Anesthesia: No History of Problems with Anesthesia: No
[2024-03-20 10:56] VITALS: BMI 41.8
[2024-03-20 10:56] LABS: UPreg QC Valid YES; Urine Pregnancy NEGATIVE (NEGATIVE)
[2024-03-20 11:17] VITALS: BP 138/86; PULSE 100; RESP 18; TEMP 36.4; O2SAT 97
[2024-03-20] MEDS: Lactated Ringers 1,000 ML 100 ML IVCONT (11:28)
--- NOTE | 2024-03-20 12:02 | MHC.SHP ---
Pre-Procedural Eval Section A - 24 Hr Update-Section A only Date of Service: 03/20/24 The patient is an INPATIENT: No The patient has been examined within 24 hours of the surgical procedure. The History & Physical has been completed within 30 days and I have reviewed it.: No Section B - Complete if H&P > 30 days Chief Complaint: Surveillance for colon polyps Relevant Family History (Specify if Yes): Yes Relevant Social History: None Present Medications: see Short Stay Collaborative assessment Medical History: Significant History (Hypertension - pt denies High cholesterol Hypogonadotropic hypogonadism - need b/c pills Mass of the right breast Hypothyroid Goiter Cubital tunnel syndrome Carpal tunnel syndrome Osteopenia ) History of Previous Operations: Relevant previous surgery/procedure and date(s) (History of carpal tunnel surgery Hx laparoscopic cholecystectomy) Allergies: Allergies Allergy/AdvReac Type Severity Reaction Status Date / Time oxycodone Allergy Intermediate Itching Verified 03/18/24 11:52 penicillin V Allergy Intermediate rash Verified 03/18/24 11:52 Sulfa (Sulfonamide Allergy Intermediate rash Verified 03/18/24 11:52 Antibiotics) atorvastatin AdvReac Intermediate Headache Verified 03/18/24 11:52 Review of Systems Sugical H&P ROS: Negative: Constitution, Cardiovascular, Respiratory and Gastrointestinal Exam Surgical H&P Exam: Normal: Heart, Normal: Lungs, Normal: Extremities and Normal: Abdomen Plan Diagnosis/Plan: Unchanged I have reviewed the history and physical and performed a pertinent physical examination on my patient. No changes have occurred unless specified. Time Spent With Patient Time: Total time managing care of this patient today ____ minutes.
[2024-03-20 12:35] VITALS: BP 120/76; PULSE 90; RESP 12; TEMP 36.1; O2SAT 97
--- NOTE | 2024-03-20 12:36 | P.OPN-COLO_ITS ---
Colonoscopy Operative Note Operative Note Date of Service: 03/20/24 Narrative: COLONOSCOPY TILL CECUM WITH SNARE POLYPECTOMY Pre-op diagnosis: Surveillance for colon polyps. Post-op diagnosis:? Colon polyp, Diverticulosis, hemorrhoids Endoscopist:? Britany Conte MD Anesthesia:?MAC Consent: Indications for the procedure and potential complications of bleeding, perforation, reaction to medications and missed diagnosis were discussed with the patient and informed consent was obtained. Instrument: Olympus PCF H 190 L variable stiffness pediatric colonoscope Monitoring: Vital signs and clinical assessment, intermittent blood pressure monitoring, continuous EKG monitoring, Pulse oximetry and Carbon Dioxide monitoring were done throughout the procedure. Please see anesthesia flowsheet. Colon withdrawl time was 10 minutes. Procedure: The patient was placed in the left lateral decubitis position and pre-procedure medications were administered. After a digital rectal examination of the ano-rectum, the video colonoscope was inserted into the rectum and advanced through the colon to the cecum. The colonoscope was slowly withdrawn in a retrograde panoramic fashion and the colon mucosa was carefully examined including a retroflexed view of the rectum. Findings and interventions are described below. Procedure Difficulty: without difficulty Findings: Terminal Ileum: Not evaluated Cecum: Normal Ascending Colon: Normal Transverse Colon: Polypectomy site visualized at 70 cms and no residual/recurrent polyp seen Descending Colon: Moderate diverticulosis Sigmoid Colon: Moderate diverticulosis Rectum: A 9-10 mm polyp at the site of past polypectomy - removed with a hot snare. Ano-rectum: Perianal skin tags Colon preparation: Excellent, after some irrigation. [place] Bowel Preparation Scale Right colon; 3 Transverse colon: 3 Left colon; 3 (0 = Unprepared colon segment with mucosa not seen due to solid stool that cannot be cleared. 1 = Portion of mucosa of the colon segment seen, but other areas of the colon segment not well seen due to staining, residual stool and/or opaque liquid. 2 = Minor amount of residual staining, small fragments of stool and/or opaque liquid, but mucosa of colon segment seen well. 3 = Entire mucosa of colon segment seen well with no residual staining, small fragments of stool or opaque liquid) Impression and Post Procedure Diagnosis: Colonoscopy Findings: A 9-10 mm polyp at the site of past polypectomy - removed with a hot snare. Moderate diverticulosis seen in the left colon Plan: I will send a letter with biopsy results Repeat Colonoscopy in 3 years if polyps are adenomatous and due to history of colon polyps Above findings were reviewed with the patient and relevant handouts were given and the discharge area. BIOPSIES SHOWED: Rectum, polypectomy: Hyperplastic mucosal polyp with thermal artifact Letter sent with biopsy results Patient placed on the colonoscopy recall list for repeat colonoscopy in 3 years
[2024-03-20 12:52] VITALS: BP 162/84; PULSE 86; RESP 17; TEMP 36.1; O2SAT 98
== END 2024-03-20 13:30 | disposition home or self-care (01) ==
PROVIDERS: Nurse Practitioner; PCP Nurse Practitioner Family; Visit Provider Internal Medicine Gastroenterology
PROC: 0DJD8ZZ Inspection of Lower Intestinal Tract, Via Natural or Artificial Opening Endoscopic (ICD-10-PCS; CPT 45378; principal; 2024-03-20 12:00)
DX: Z12.11 Encounter for screening for malignant neoplasm of colon (principal); K62.1 Rectal polyp; K57.30 Diverticulosis of large intestine without perforation or abscess without bleeding; K64.8 Other hemorrhoids; K64.4 Residual hemorrhoidal skin tags; Z86.0101 Personal history of adenomatous and serrated colon polyps; E78.5 Hyperlipidemia, unspecified; E03.9 Hypothyroidism, unspecified; E55.9 Vitamin D deficiency, unspecified; Z79.02 Long term (current) use of antithrombotics/antiplatelets; Z79.899 Other long term (current) drug therapy
CPT/HCPCS: 45385; 81025; 88305; J2003; J2704

== ENCOUNTER → 2024-03-20 10:36 | Outpatient (BNV) | payer OTHER, SELFPAY | PROVIDERS: PCP Nurse Practitioner Family; Visit Provider Internal Medicine Gastroenterology | DX: Z12.11 Encounter for screening for malignant neoplasm of colon (principal); Z86.0100 Personal history of colon polyps, unspecified; K63.5 Polyp of colon; K57.90 Diverticulosis of intestine, part unspecified, without perforation or abscess without bleeding | CPT/HCPCS: 45385 ==

== ENCOUNTER 2024-04-09 13:21 | Outpatient (AMB) | payer OTHER, SELFPAY ==
--- NOTE | 2024-04-09 13:24 | A.SPINEOV_ITS ---
Intake Visit Reasons: neck pain & left arm pain Intake Note: Ms. De La Rosa is here today c/o neck and arm pain. 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 If she had more pain we would have an indication for surgery but at this time it is really not bothering her to any degree where it is affecting her daily life. There is a very good chance that it will just go away on its own. If the symptoms escalate, we could consider an anterior cervical diskectomy with fusion. She will let us know if anything gets worse. Code(s): M50.20 - Other cervical disc displacement, unspecified cervical region Category: Medical Plan Mrs De La Rosa is following up in the office today. Please see my previous note for the specifics of her problem, but she had an intermittent but manageable left upper extremity radiculopathy in the setting of 2 moderate to large size disc herniations on the left at C5-6 and C6-7. Unfortunately, over the last 2-3 weeks her symptoms have escalated significantly. She thinks it may have been related to a lateral position that she was in during a colonoscopy as it seems to have started shortly after that. The pain has now become quite intense, almost unmanageable. She started to notice some weakness in her left arm as well. She had tried ibuprofen and Tylenol etc. but it has been helping. Her arm will be numb in the morning, get a little better as the day goes on, but as the evening starts to get closed, the pain intensifies and the numbness gets worse as well. Last week it was so painful that she was not sure how she could continue to function. On my exam, she appears uncomfortable, she is demonstrating weakness of her left triceps which I would rate as 4-5. Diminished left triceps weakness as well. Hand grasp is intact. Biceps, wrist and deltoid function is intact. I reviewed her imaging with her again, and we previously thought she would be a good candidate for an anterior cervical procedure at C5-6 and C6-7 if she had the appropriate symptoms, which it seems now that she does have. We discussed the conservative options have maybe trying a cortisone injection and some therapy. We also discussed the option of surgery. Specifically, we talked about possible artificial disc versus anterior cervical fusion. Because of the intensity of the pain, she really does not want to continue to try to wait this out much longer. She has been dealing with since the summer on and off but the intensity over the last 2-3 weeks has been unrelenting. I went ahead and booked her for May 12 for total disc arthroplasty, but will confirm the plan with Dr. Mcnulty and make sure he does not want to do a fusion instead. Pt was given risk and benefits of surgery including but not limited to infection, hematoma , nerve injury,durotomy, weakness,bowel/bladder injury, persistent pain, vocal hoarseness, dysphagia as well as the option to continue with conservative treatment and patient wishes to proceed with surgery. Pt is aware they should stop their motrin, aspirin 7 days prior to surgery. All questions were answered to the best of our ability. If there is anything about this patients medical history that we have overlooked or concerns you have about us proceeding with surgery we would appreciate any input you can offer. Total amount of time spent in this visit was 20 minutes in discussion of symptom s, cervical MRI at [place] imaging results and subsequent plan of care Tino Mcnulty MD,PhD [facility] Coding Level of Care Code Est Pt Level 3 (07703) Diagnoses Cervical disc herniation M50.20
== END 2024-04-09 14:03 | disposition home or self-care (01) ==
PROVIDERS: PCP Nurse Practitioner Family; Visit Provider Physician Assistant
DX: M50.20 Other cervical disc displacement, unspecified cervical region (principal)
CPT/HCPCS: 99213

== ENCOUNTER → 2024-04-09 13:21 | Outpatient (BNVA) | payer OTHER, SELFPAY | PROVIDERS: PCP Nurse Practitioner Family; Visit Provider Physician Assistant ==

== ENCOUNTER 2024-04-14 07:30 | Outpatient (AMB) | payer OTHER, SELFPAY ==
--- NOTE | 2024-04-14 07:34 | A.OFFVIS_ITS ---
Vital Signs 04/14/24 07:40 Height 5 ft 3 in Weight 240 lb 8.389 oz BMI 42.6 BP 110/72 Blood Pressure Location Lt brachial Position Sitting Pulse 78 Pulse Source Pulse Oximeter Intake Visit Reasons: F/U HLD Intake Note: Patient present today for HLD office visit. 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 Accompanied by: Self / Same As Patient Allergies oxycodone Allergy (Intermediate, Verified 04/14/24 07:44) Itching penicillin V Allergy (Intermediate, Verified 04/14/24 07:44) rash Sulfa (Sulfonamide Antibiotics) Allergy (Intermediate, Verified 04/14/24 07:44) rash atorvastatin Adverse Reaction (Intermediate, Verified 04/14/24 07:44) Headache Medication List - Last Reconciled 04/14/24 by Batool Casiano MD bupropion HCl XL (Wellbutrin XL) 150 mg PO QAM calcium carbonate (Calcium 500) 500 mg PO DAILY levonorgestrel-ethinyl estrad 0.15 mg-30 mcg (91) 1 tab PO DAILY levothyroxine 75 mcg PO DAILY multivitamin 1 tab PO DAILY pravastatin 10 mg PO BEDTIME HPI Comments Details: 48 YO Female with a PMHx of Salma's disease with hypothyroidism, a NTMNG and also hypogonadotropic hypogonadism who is seen in F/U today. 1) Salma's Disease and NTMNG: She was diagnosed with Salma's disease shortly after the of her Son in 2018. 06/2018 her TSH was 59.83. Her TPO and TG antibodies were positive. She was started on Levothyroxine, and is currently using levothyroxine 75 mcg PO daily. Her official US was read as a multinodular thyroid, but Dr. Joyner repeated this herself 12/14/2021 and this revealed a diffusely heterogenous gland with no true thyroid nodules, only pseudonodules. Interval history no compressive symptoms She denies any symptoms of hyper or hypothyroidism. Currently taking levothyroxine 75 mcg daily, adherent, and takes it appropriately She denies any history of head or neck irradiation. She denies any Family history of thyroid cancer. She does have an Aunt with a history of hypothyroidism. 2) Hypogonadotropic Hypogonadism: longstanding history of hypogonadotropic hypogonadism. MRI Jun 2021 revealed a thickened pituitary stalk, but no other obvious abnormality. Her pituitary panel has been WNL other than hypogonadotropic hypogonadism. She is on OCP and does have 3 monthly menses on this. She was unable to conceive spontaneously, but did undergo IVF with a donor egg and carried a succesful . She has a healthy Son. DXA 07/25 normal Not sexually active not bothered . 3) HLD: She also has hyperlipidemia. She was started on Atorvastatin 10 mg PO daily and took this for 3 months. She developed headaches and stopped this. Headaches resolved. Currently on pravastatin 10 mg daily, howwver was off it for a couple of months before she jus ida her last lipid panel done in february 2024 Physical exam General: sitting comfortably in no acute distress HEENT: normocephalic/atraumatic, Neck: supple, symmetrical, no thyromegaly Cardiac: normal heart sounds Pulm: normal breath sounds B/L, no added breath sounds Abd: not distended, no tenderness Extremities: no edema, no signs of myxedema Imaging US THYROID 02/25 CLINICAL INFORMATION: Nontoxic goiter, unspecified. COMPARISON: Ultrasound thyroid 05/11/2021 and 06/08/2020. TECHNIQUE: Linear transducer ibanez-scale and color Doppler examination with attention to the region of the thyroid. FINDINGS: SIZE: Measurements of the thyroid lobes and nodules are given in sagittal, anteroposterior and transverse dimensions respectively. Right Thyroid Lobe: 5.3 x 1.8 x 1.7 cm, volume 8.5 mL. Previously 5.4 x 1.7 x 1.7 cm, volume 8.2 mL. Parenchyma: The gland echotexture is mildly heterogeneous. Thyroid vascularity is normal. Left Thyroid Lobe: 5.6 x 1.8 x 2.1 cm, volume 11.1 mL. Previously 5.1 x 1.7 x 1.7 cm, volume 10.6 mL. Parenchyma: The gland echotexture is mildly heterogeneous. Thyroid vascularity is normal. Isthmus: 0.5 cm in maximum AP dimension. Previously 0.2 cm. Estimated total number of nodules greater than or equal to 1 cm: 1. Bricklayer Paving Brick nodules are described as follows: 1. Location: Left superior. Size: 0.7 x 0.7 x 0.7 cm, volume 0.18 mL. Previously: 1.1 x 0.8 x 0.9 cm, volume 0.4 mL. Nodule characteristics: Composition: Solid (2). Echogenicity: Hypoechoic (2). Shape: Not taller than wide (0). Margins: Ill-defined (0). Echogenic Foci: None (0). ACR TI-RADS total points: 4 Previous: 4 ACR TI-RADS category: 4 Previous: 4 Significant change in size (>/= 20% in 2 dimensions and minimal increase of 2 mm or 50% or greater increase in volume): No Change in features: No Change in ACR TI-RADS risk category: No 2. Location: Left mid. Size: 0.7 x 0.8 x 1.0 cm, volume 0.31 mL. Previously: 1.0 x 0.6 x 0.8 cm, volume 0.3 mL. Nodule characteristics: Composition: Solid (2). Echogenicity: Cannot be determined (1). Shape: Not taller than wide (0). Margins: Irregular (2). Echogenic Foci: Macrocalcifications (1). ACR TI-RADS total points: 6 Previous: 6 ACR TI-RADS category: 4 Previous: 4 Significant change in size (>/= 20% in 2 dimensions and minimal increase of 2 mm or 50% or greater increase in volume): No Change in features: No Change in ACR TI-RADS risk category: No 3. Location: Left inferior. Size: 0.8 x 0.4 x 0.4 cm, volume 0.07 mL. Previously: 0.6 x 0.5 x 0.5 cm, volume 0.1 mL. Nodule characteristics: Composition: Solid (2). Echogenicity: Cannot be determined (1). Shape: Not taller than wide (0). Margins: Irregular (2). Echogenic Foci: Macrocalcifications (1). ACR TI-RADS total points: 6 Previous: 6 ACR TI-RADS category: 4 Previous: 4 Significant change in size (>/= 20% in 2 dimensions and minimal increase of 2 mm or 50% or greater increase in volume): No Change in features: No Change in ACR TI-RADS risk category: No NODES: No lymphadenopathy is seen in the tissue surrounding the thyroid gland. US/US thyroid IMPRESSION: Diffusely heterogeneous thyroid gland. Multiple thyroid nodules, largest TR4 nodule left mid 1.0 cm is stable in size. Continued surveillance recommended. Thyroid US: 05/11/2021 Right Thyroid Lobe: 5.4 x 1.7 x 1.7 cm, volume 8.2 mL. Previously 4.9 x 2.1 x 1.8 cm, volume 9.5 mL. Parenchyma: The gland echotexture is homogeneous. Thyroid vascularity is normal. Left Thyroid Lobe: 5.1 x 1.7 x 1.7 cm, volume 7.6 mL. Previously 5.8 x 1.9 x 1.9 cm, volume 10.6 mL. Parenchyma: The gland echotexture is homogeneous. Thyroid vascularity is normal. Isthmus: 0.2 cm in maximum AP dimension. Previously 0.5 cm. Estimated total number of nodules greater than or equal to 1 cm: 1. Bricklayer Paving Brick nodules are described as follows: 1.? Location: Left superior. ?? ? Size: 1.1 x 0.8 x 0.9 cm, volume 0.4 mL. ?? ? Previously: 1.0 x 0.7 x 1.0 cm, volume 0.4 mL. ?? ? Nodule characteristics: ?? ? Composition: Solid (2). ?? ? Echogenicity: Hypoechoic (2). ?? ? Shape: Not taller than wide (0). ?? ? Margins: Ill-defined (0). ?? ? Echogenic Foci: None (0).? ACR TI-RADS total points: 4 Previous: 4 ?? ? ACR TI-RADS category: 4 Previous: 4 ? Significant change in size (>/= 20% in 2 dimensions and minimal increase of 2 mm or 50% or greater increase in volume): No ?? ? Change in features: No ?? ? Change in ACR TI-RADS risk category: No 2.? Location: Left mid. ?? ? Size: 1.0 x 0.6 x 0.8 cm, volume 0.3 mL. ?? ? Previously: 1.0 x 0.8 x 0.7 cm, volume 0.3 mL. ?? ? Nodule characteristics: ?? ? Composition: Solid (2). ?? ? Echogenicity: Hyperechoic (1). ?? ? Shape: Not taller than wide (0). ?? ? Margins: Irregular (2). ?? ? Echogenic Foci: Macrocalcifications (1). ? ACR TI-RADS total points: 6 Previous: 6 ?? ? ACR TI-RADS category: 4 Previous: 4 ? Significant change in size (>/= 20% in 2 dimensions and minimal increase of 2 mm or 50% or greater increase in volume): No ?? ? Change in features: No ?? ? Change in ACR TI-RADS risk category: No 3.? Location: Left inferior. ?? ? Size: 0.6 x 0.5 x 0.5 cm, volume 0.1 mL. ?? ? Previously: 0.8 x 0.5 x 0.4 cm. Nodules 3 and 4 were measured as one nodule on prior exam. ?? ? Nodule characteristics: ?? ? Composition: Solid (2). ?? ? Echogenicity: Hyperechoic (1). ?? ? Shape: Not taller than wide (0). ?? ? Margins: Irregular (2). ?? ? Echogenic Foci: Macrocalcifications (1). ? ACR TI-RADS total points: 6 ?? ? ACR TI-RADS category: 4 ? Significant change in size (>/= 20% in 2 dimensions and minimal increase of 2 mm or 50% or greater increase in volume): No ?? ? Change in features: No ?? ? Change in ACR TI-RADS risk category: No 4.? Location: Left inferior. ?? ? Size: 0.4 x 0.3 x 0.4 cm, volume 0.03 mL. ?? ? Previously: 0.8 x 0.5 x 0.4 cm. Nodules 3 and 4 measured as one nodule on prior exam. ?? ? Nodule characteristics: ?? ? Composition: Solid (2). ?? ? Echogenicity: Hyperechoic (1). ?? ? Shape: Not taller than wide (0). ?? ? Margins: Ill-defined (0). ?? ? Echogenic Foci: Macrocalcifications (1).? ACR TI-RADS total points: 4 ?? ? ACR TI-RADS category: 4 ? Significant change in size (>/= 20% in 2 dimensions and minimal increase of 2 mm or 50% or greater increase in volume): No ?? ? Change in features: No ?? ? Change in ACR TI-RADS risk category: No NODES: No lymphadenopathy is seen in the tissue surrounding the thyroid gland. DXA: 07/05/2021 FINDINGS: AP SPINE L1-L2 (excluding L3 and L4): The data of L1-L4 has been changed to exclude the L3 and L4 vertebral bodies, because probable mild degenerative changes at these levels may cause overestimation of lumbar spine density. BMD 1.094 g/cm2, T-score -0.6, Z-score -1.8, Z-score within expected range for age. LEFT FEMUR, NECK: BMD 0.845 g/cm2, T-score -1.4, Z-score -1.6, Z-score within expected range for age. LEFT FEMUR, TOTAL: BMD 0.976 g/cm2, T-score -0.3, Z-score -0.8, Z-score within expected range for age.? LEFT FOREARM RADIUS 33%: BMD 0.882 g/cm2, T-score 0.1, Z-score 0.1, Z-score within expected range for age.? MRI Brain: 06/21/2021 FINDINGS: No abnormal focus of decreased differential enhancement is seen within the pituitary gland. The pituitary gland parenchyma appears relatively thin. The infundibulum measures approximately 3.4 mm AP, just superior to the pituitary gland, which is mildly thickened. The infundibulum is in the midline. The cavernous sinuses opacify symmetrically. The internal carotid artery flow-voids are maintained. The optic chiasm is normal. No suprasellar soft tissue abnormality is seen. The sella turcica is normal. No diffusion abnormalities are identified to suggest an acute or subacute infarct. No mass effect or midline shift is seen. The ventricles are normal in size.? Brain parenchymal signal is unremarkable. No extra-axial fluid collections are seen. The brainstem appears normal. On postcontrast imaging, there is no abnormal parenchymal or leptomeningeal enhancement. There is no evidence of acute hemorrhage. The cerebellar tonsillar tips extend approximately 4.4 mm below the level of foramen magnum, but have normal contours bilaterally. Marrow signal and midline structures are normal. The major intracranial flow-voids at the level of the pauma of [place] are preserved. There is a small cyst in the high nasopharynx posteriorly on the right. The dural venous sinus flow-voids are maintained. The mastoid air cells and the paranasal sinuses are well-aerated. The nasal septum is significantly deviated to the left. Labs: Laboratory Tests 06/14/22 10/16/22 10/16/22 08:05 07:51 07:51 Creatinine 0.79 Estimated GFR > 60 AST 17 ALT 14 Triglycerides 99 Cholesterol 224 LDL Cholesterol Direct 151 H LDL Cholesterol, Calc 143 HDL Cholesterol 62 25-OH Vitamin D Total 34.7 TSH 0.91 Free T4 1.05 Laboratory Tests 01/01/20 10/16/22 04/04/23 14:15 07:51 07:26 Plt Count 312 AST ALT Triglycerides 99 Cholesterol 224 207 H LDL Cholesterol Direct 151 H 134 H LDL Cholesterol, Calc 143 129 H HDL Cholesterol 62 54 TSH 0.32 Free T4 1.16 Total T3 142 Estradiol Ultra LCMSMS 7 FSH 0.9 L Luteinizing Hormone 0.2 L Prolactin 6.6 Sex Hormone Bind Glob 58 Somatomedin-C 151 Random Cortisol 10.5 ACTH 21 02/04/24 07:10 Plt Count AST 17 ALT 21 Triglycerides Cholesterol 224 H LDL Cholesterol Direct LDL Cholesterol, Calc 150 H HDL Cholesterol 54 TSH 1.16 Free T4 Total T3 Estradiol Ultra LCMSMS FSH Luteinizing Hormone Prolactin Sex Hormone Bind Glob Somatomedin-C Random Cortisol ACTH PFSH Medical History Tubular adenoma of colon Cubital tunnel syndrome, bilateral Obesity Numbness of left hand De Quervain's tenosynovitis, left Osteopenia Mass of 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 Brother No problems noted. 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 She describes she was not taking pravastatin 10 mg daily for quite a few months. Has restarted it. Primary care can repeat lipid panel in 3 months. She continues to have worsening levels, she can arrange a follow up sooner than 1 year. We can consider switching her to rosuvastatin then or adding ezetimibe. Plan: -repeat lipid panel in 3 months -continue pravastatin 10 mg daily. (2) Hypothyroidism: Comment: on levothyroxine taking as directed euthyroid on most recent labs managed by Endo Code(s): E03.9 - Hypothyroidism, unspecified Category: Medical Qualifiers: Hypothyroidism type: due to Salma's thyroiditis Qualified Code(s): E03.8 - Other specified hypothyroidism; E06.3 - Autoimmune thyroiditis Plan: [age]-old female with a history of hypothyroidism due to Salma's thyroiditis. She is currently being treated with levothyroxine 75 mcg. Biochemically euthyroid. However in February only TSH done, given some concern about pituitary dysfunction possibly, we will plan to repeat TSH with free T4.. Plan: -continue levothyroxine 75 mcg daily -ordered TSH and free T4 -follow up in 1 year (3) Hypogonadotropic hypogonadism: Comment: managed by Endo at [facility] [employer] [facility] [employer] [facility] [place] Code(s): E23.0 - Hypopituitarism Category: Medical Plan: History of isolated hypogonadotropic hypogonadism currently being treated with oral contraceptive pills. MRI 2021 showed thickened pituitary stalk. She does not have any symptoms of hypo or hyperthyroidism, does not have any nausea, vomiting, lightheadedness or dizziness or any weight changes concerning for adrenal insufficiency. She feels well overall. We will repeat pituitary panel with prolactin, IGF-1, acth, cortisol, TSH and free T4 today Bone density 2021 was normal. We will plan to repeated in another year or 2. Advised importance of continuing on calcium, vitamin-D and weight-bearing exercise for general good bone health (4) Goiter: Code(s): E04.9 - Nontoxic goiter, unspecified Category: Medical Plan: History of Salma's thyroiditis with Pseudo nodules , last thyroid ultrasound 2022 No need for further ultrasound follow-up. Patient does not have any clinical changes, repeat ultrasound only indicated if patient has clinical changes. Plan See above Orders: Orders Adrenocorticotropic Hormone Today E03.8 - Other specified hypothyroidism, E06.3 - Autoimmune thyroiditis, E23.0 - Hypopituitarism, E78.2 - Mixed hyperlipidemia Cortisol Random Today E03.8 - Other specified hypothyroidism, E06.3 - Autoimmune thyroiditis, E23.0 - Hypopituitarism, E78.2 - Mixed hyperlipidemia IGF-1 (Somatomedin C) Today E03.8 - Other specified hypothyroidism, E06.3 - Autoimmune thyroiditis, E23.0 - Hypopituitarism, E78.2 - Mixed hyperlipidemia Prolactin Today E03.8 - Other specified hypothyroidism, E06.3 - Autoimmune thyroiditis, E23.0 - Hypopituitarism, E78.2 - Mixed hyperlipidemia Free T4 (Free Thyroxine) Today E03.8 - Other specified hypothyroidism, E06.3 - Autoimmune thyroiditis, E23.0 - Hypopituitarism, E78.2 - Mixed hyperlipidemia Thyroid Stimulating Hormone Today E03.8 - Other specified hypothyroidism, E06.3 - Autoimmune thyroiditis, E23.0 - Hypopituitarism, E78.2 - Mixed hyperlipidemia Medications: Refilled levothyroxine 75 mcg PO DAILY 90 tabs 4RF E03.8 - Other specified hypothyroidism, E06.3 - Autoimmune thyroiditis Patient Instructions: Repeat lipid panel in 3 months since you restarted pravastatin 10 mg daily again Follow up in 1 year Continue levothyroxine 75 mcg daily Do early AM blood work Coding Level of Care Code Est Pt Level 4 (97918) Diagnoses Mixed hyperlipidemia E78.2 Hyperlipidemia type: mixed hyperlipidemia 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 E03.8; E06.3 Hypothyroidism type: due to Salma's thyroiditis Hypogonadotropic hypogonadism E23.0 Goiter E04.9
[2024-04-14 07:40] VITALS: BP 110/72; PULSE 78; BMI 42.6
== END 2024-04-14 08:01 | disposition home or self-care (01) ==
PROVIDERS: PCP Internal Medicine; Visit Provider Student in an Organized Health Care Education/Training Program
DX: E78.2 Mixed hyperlipidemia (principal); E03.8 Other specified hypothyroidism; E06.3 Autoimmune thyroiditis; E23.0 Hypopituitarism; E04.9 Nontoxic goiter, unspecified
CPT/HCPCS: 99214

== ENCOUNTER → 2024-04-14 07:30 | Outpatient (BNVA) | payer OTHER, SELFPAY | PROVIDERS: PCP Internal Medicine; Visit Provider Student in an Organized Health Care Education/Training Program ==

== ENCOUNTER 2024-04-14 08:03 | Outpatient (REF) | payer OTHER, SELFPAY ==
[2024-04-14 09:08] LABS: Free T4 (Free Thyroxine) 1.23 ng/dL (0.71-1.85); Thyroid Stimulating Hormone 1.24 uIU/mL (0.32-4.0)
[2024-04-15 18:23] LABS: Prolactin 9.6 ng/mL
[2024-04-19 16:29] LABS: IGF-1 (Somatomedin C) 111 ng/mL (52-328); IGF-1 Z Score (Female) -0.5 SD (-2.0 - +2.0)
[2024-04-20 14:39] LABS: Adrenocorticotropic Hormone 19 pg/mL (6-50)
== END 2024-04-14 08:04 | disposition home or self-care (01) ==
LOC: HO.LAB 08:03
PROVIDERS: Visit Provider Student in an Organized Health Care Education/Training Program
DX: E23.0 Hypopituitarism (principal); E03.8 Other specified hypothyroidism; E06.3 Autoimmune thyroiditis; E78.2 Mixed hyperlipidemia
CPT/HCPCS: 36415; 82024; 82533; 84146; 84305; 84439; 84443

== ENCOUNTER 2024-05-12 07:35 | Day surgery (SDC) | payer OTHER, SELFPAY ==
[2024-05-01 13:24] VITALS: BP 147/78; PULSE 89; RESP 18; O2SAT 96; BMI 42.7
[2024-05-01 14:11] LABS: MANUAL DIFF FLAG NO
[2024-05-01 14:52] LABS: Basophils Percent Auto 0.5 % (0-2); Eosinophils Absolute Auto 0.2 X10*3/uL (0.0-0.4); Eosinophils Percent Auto 2.1 % (0-4); Hematocrit 39.3 % (37.0-47.0); Hemoglobin 13.2 g/dl (12.0-16.0); Imm Gran Abs Auto 0.03 X10*3/uL (0.00-0.03); Imm Gran Pct Auto 0.4 % (0.0-0.4); Lymphocytes Absolute Auto 2.6 X10*3/uL (1.2-4.9); Lymphocytes Percent Auto 30.3 % (20-40); Mean Corpuscular HGB Conc 33.6 g/dl (31.0-35.0); Mean Corpuscular Hemoglobin 29.5 pg (27.0-33.0); Mean Corpuscular Volume 87.7 fL (80.0-98.0); Mean Platelet Volume 9.1 fL (9.4-12.3); Monocytes Absolute Auto 0.5 X10*3/uL (0.1-1.2); Monocytes Percent Auto 5.9 % (2-11); Neutrophils Absolute Auto 5.1 x10*3/uL (2.0-8.3); Neutrophils Percent Auto 60.8 % (45-73); Platelet Count 338 X10*3/uL (160-400); Red Blood Count 4.48 X10*6/uL (4.20-5.50); Red Cell Distribution Width 12.9 % (11.0-16.0); White Blood Count 8.4 X10*3/uL (4.8-10.8)
[2024-05-12] VITALS (11 sets, daily range): BP systolic 123–148; BP diastolic 64–92; PULSE 79–92; RESP 16; TEMP 36.4–37.7; O2SAT 95–98; BMI 41.8
--- NOTE | ~2024-05-12 | FL_ITS ---
EXAMINATION: FLUOROSCOPY GUIDANCE FOR NEEDLE PLACEMENT CLINICAL INFORMATION: C5-C6, C6-7 COMPARISON: None available. TECHNIQUE: Intraoperative fluoroscopy guidance in the OR. 2. Images provided. FINDINGS: No images for diagnosis. Physician is present. FLUOROSCOPY TIME: 18.5 seconds. DOSE AREA PRODUCT: 2.99881 uGy-m2 (microgray-meter squared) FL/FL guidance in OR IMPRESSION: Intraoperative fluoroscopy guidance in the operating room for a procedure. Electronically signed by: Yury Wyman MD 05/21/2024 09:27 AM [facility]
[2024-05-12 08:30] LABS: UPreg QC Valid YES; Urine Pregnancy NEGATIVE (NEGATIVE)
[2024-05-12] MEDS: Gabapentin 300 MG CAPSULE PO (08:46)
[2024-05-12] MEDS: methocarbamoL 750 MG TABLET PO (08:46)
[2024-05-12] MEDS: Lactated Ringers 1,000 ML 100 ML IVCONT (09:05)
[2024-05-12] MEDS: vancomycin HCL 1,500 MG in 0.9 % Sodium Chloride 500 ML 333.33 MG IV (09:06)
--- NOTE | 2024-05-12 09:38 | MHC.SHP ---
Pre-Procedural Eval Section A - 24 Hr Update-Section A only Date of Service: 05/12/24 The patient is an INPATIENT: No Changes since office visit: No Cold of Flu in the past 2 weeks, No New Medical Problems, No Changes in Medication and No Patient answered all questions The patient has been examined within 24 hours of the surgical procedure. The History & Physical has been completed within 30 days and I have reviewed it.: No Section B - Complete if H&P > 30 days Chief Complaint: Other cervical disc displacement, unspecified cerv Allergies: Allergies Allergy/AdvReac Type Severity Reaction Status Date / Time oxycodone Allergy Intermediate Itching Verified 05/12/24 08:16 penicillin V Allergy Intermediate rash Verified 05/12/24 08:16 Sulfa (Sulfonamide Allergy Intermediate rash Verified 05/12/24 08:16 Antibiotics) atorvastatin AdvReac Intermediate Headache Verified 05/12/24 08:16 Review of Systems Sugical H&P ROS: Negative: Constitution, Cardiovascular, Respiratory, Neurological, Psychiatric, Hem-Onc, Allergic/Immunologic, Gastrointestinal, Genitourinary, Musculoskeletal, Integumentary, Endocrine and Eyes/Ears/Nose/Throat Exam Surgical H&P Exam: Normal: HEENT, Normal: Heart, Normal: Lungs, Normal: Extremities, Normal: Abdomen, Normal: Skin and Normal: Neurological (awake, alert,oriented x 3 ) Plan Diagnosis/Plan: Unchanged C5-6,C6-7 total disk athroplasty Time Spent With Patient Time: Total time managing care of this patient today __5__ minutes.
--- NOTE | 2024-05-12 09:39 | P.DS_ITS ---
DS: Providers Provider Date of Service: 05/12/24 Date of discharge: 05/12/24 Primary care physician: LAUREN Almaguer Admitting clinician: Bashir Mcnulty DS: Diagnosis Discharge Diagnosis (1) Cervical disc herniation: Status: Acute DS: Summary Time Attestation Discharge Coordination Time (in mins): 6 Quality: Safe Use of Opioids Does Pt have an Active Cancer Diagnosis on the Problem List?: No Quality: Stroke Does the patient have a stroke diagnosis?: No Physical Exam Vital Signs: Vital Signs: Last Vital Signs Temp 99.8 F 05/12/24 08:40 Pulse 89 05/12/24 08:40 Resp 16 05/12/24 08:40 BP 125/64 05/12/24 08:40 Pulse Ox 96 05/12/24 08:40 O2 Del Method Room Air 05/12/24 08:40 BMI result Body Mass Index 41.8 DS: Data Data Completed and Pending Labs on day of discharge: Laboratory Results - last 24 hr 05/12/24 08:15 Urine Test NEGATIVE Discharge Plan Discharge Patient Disposition: Home, Self-Care Referrals: Jenni Luna FNP-BC [Primary Care Provider] - 1 Week Discharge Medications: New hydrocodone-acetaminophen 5-300 mg tablet 1 tab PO Q4H PRN (Reason: pain) Qty: 30 0RF Rx Instructions: Partial Fill upon patient request. docusate sodium [Colace] 100 mg capsule 100 mg PO BID Qty: 20 0RF Continued levonorgestrel-ethinyl estrad 0.15 mg-30 mcg (91) tablets,dose pack,3 month 1 tab PO BEDTIME bupropion HCl [Wellbutrin XL] 150 mg tablet extended release 24 hr 150 mg PO QAM Qty: 90 1RF calcium carbonate [Calcium 500] 500 mg calcium (1,250 mg) tablet 500 mg PO BEDTIME multivitamin Tablet 1 tab PO BEDTIME pravastatin 10 mg tablet 10 mg PO BEDTIME Qty: 90 1RF levothyroxine 75 mcg tablet 75 mcg PO DAILY Qty: 90 4RF Discharge Orders: Discharge Order (Routine); Ordered 05/12/24 Ordered By: Tino Toledo Diet: Advance to usual diet Activity on Discharge: As tolerated Activity Restrictions/Additional Instructions: After your spinal surgery we ask you to observe the following restrictions/guidelines: Activity: It is normal to feel some discomfort as you increase your activity, but that will improve with time. We ask you avoid heavy lifting or acitivities that cause pain. As a general rule, 8lbs is a safe limit for lifting right after surgery. Walk as much as you feel comfortable but not to exhaustion. You will feel extra tired the first few days after surgery. Stay well hydrated. It is OK to walk up and down stairs You may return to driving when you are off narcotics (such as vicodin, oxycodone, dilaudid, etc), and you are back to normal functional capacity. If you have any concerns please check with office before driving. Return to work is specific to each patient and each surgery, so please speak with your doctor/PA at first follow up. Please bring paperwork such as FMLA at that time if you need it filled out. Medications: For optimum pain control, it is best to start with a combination of 500 mg of Ty lenol every 4 hours with 600 mg of Motrin every 8 hours, and use narcotics as needed in between for breakthrough pain. We will give you a short supply of narcotics after surgery (usually one weeks w orth). If you need more please call the office but do not use more than prescribed. You will need to give our office 48 hours notice if you need narcotics refilled and we do not fill narcotics on weekends or evenings. If you are on a narcotic, it is a good idea to take a stool softener such as colace or senna to avoid constipation If you take blood thinner such as aspirin, Plavix, Coumadin, Effient, Eliquis etc for conditions such as Afib, DVT, Pulmonary embolus, coronary disease, stents etc please speak with your surgeon about specific details as to when you can resume these medications. You can resume NSAIDs on post op day 1 (eg: Motrin, Naproxen, etc). Follow up: Please call the office, , after surgery to arrange a 3 week follow up for wound check. Wound Care: You may remove your dressing on the first day after surgery. ?You may ?leave open to air. Please do not remove the steri strips underneath. they will fall off on their own in one week. IT IS NORMAL FOR THE WOUND TO OOZE OR BE BLOODY FOR A FEW DAYS AFTER SURGERY. ?IF THIS HAPPENS JUST PLACE NEW DRESSING OVER IT TO AVOID STAINING CLOTHES. You may shower on post op day # 1 We ask that you do not let the water soak the wound. If it does get wet, just towel dry lightly. Please do not scrub your incision or place any type of chemical/ointment on the wound. No tub baths, pools or jacuzzis for one month. If you have any leaking or redness from your wound, or fevers, please call office Print Language: Ukrainian
--- NOTE | 2024-05-12 10:06 | P.CONAN_ITS ---
Documented by User: Shakira Thompson NP 05/11/24 08:43 HPI - Anesthesia Eval Consult details Narrative: 48yo F for C5-6, C6-7 Total Disc Arthroplasty PMFSH Active Problems Active Problems: All Active Problems Cervical disc herniation (Acute) Class 3 obesity (Acute) Arm paresthesia, left (Acute) Adult BMI 40.0-44.9 kg/sq m (Acute) ANJALI (generalized anxiety disorder) (Acute) MDD (major depressive disorder), recurrent episode (Acute) Well woman exam with routine gynecological exam (Acute) Annual physical exam (Acute) Tubular adenoma of colon (Acute) Osteopenia (Acute) Mass of right breast (Acute) 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 (Acute) Vitamin D deficiency (Acute) Hypogonadotropic hypogonadism (Acute) Non-toxic multinodular goiter (Acute) Hypothyroidism (Acute) Hyperlipidemia (Acute) Mammogram normal (Acute) Normal Pap smear (Acute) Past Medical History Medical History (Updated 05/01/24 @ 13:18 by Carleen Ortiz RN) Depression Anxiety Tubular adenoma of colon Cubital tunnel syndrome, bilateral Obesity Numbness of left hand De Quervain's tenosynovitis, left Osteopenia Mass of right breast 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 Brother No problems noted. 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 Current occupational exposures/hazards: No Cognitive needs: No Hearing needs: No Vision needs: Yes Meds Allergies Allergy/AdvReac Type Severity Reaction Status Date / Time oxycodone Allergy Intermediate Itching Verified 05/12/24 08:16 penicillin V Allergy Intermediate rash Verified 05/12/24 08:16 Sulfa (Sulfonamide Allergy Intermediate rash Verified 05/12/24 08:16 Antibiotics) atorvastatin AdvReac Intermediate Headache Verified 05/12/24 08:16 Home Medications ?Medication ?Instructions ?Recorded ?Confirmed ?Last Taken ?Type calcium carbonate (Calcium 500) 500 mg PO BEDTIME 02/03/20 05/12/24 Unknown History multivitamin 1 tab PO BEDTIME 02/03/20 05/12/24 Unknown History levonorgestrel 0.15 mg-ethinyl 1 tab PO BEDTIME 05/01/24 05/12/24 Unknown History estradiol 30 mcg tablets,3 mos pack(91) Exam Height,Weight and Vital Signs: Height 5 ft 3 in Weight 109.316 kg Last Vital Signs Pulse 89 05/01/24 13:24 Resp 18 05/01/24 13:24 BP 147/78 H 05/01/24 13:24 Pulse Ox 96 05/01/24 13:24 O2 Del Method Room Air 05/01/24 13:24 Pertinent Lab Results Pertinent Lab Results: Laboratory Tests 05/01/24 14:10 WBC 8.4 RBC 4.48 Hgb 13.2 Hct 39.3 MCV 87.7 MCH 29.5 MCHC 33.6 RDW 12.9 Plt Count 338 MPV 9.1 L Immature Gran % (Auto) 0.4 Neut % (Auto) 60.8 Lymph % (Auto) 30.3 Toole % (Auto) 5.9 Eos % (Auto) 2.1 Baso % (Auto) 0.5 Lymph # (Auto) 2.6 Toole # (Auto) 0.5 Eos # (Auto) 0.2 Baso # (Auto) 0.0 Abs Immat Gran (auto) 0.03 Absolute Neuts (auto) 5.1 Absolute Nucleated RBC 0.000 Nucleated RBC % (auto) 0.0 Laboratory Tests 02/04/24 07:10 Sodium 139 Potassium 4.0 Chloride 108 Carbon Dioxide 23 BUN 15 Creatinine 0.86 Assessment and Plan Assessment Anesthesia Assessment: Chart Reviewed Final Anesthetic Review Family History of Problems with Anesthesia: No History of Problems with Anesthesia: No Documented by User: Kasia Bejarano DO 05/12/24 10:06 [facility] Past Medical History Medical History (Updated 05/01/24 @ 13:18 by Carleen Ortiz RN) Depression Anxiety Tubular adenoma of colon Cubital tunnel syndrome, bilateral Obesity Numbness of left hand De Quervain's tenosynovitis, left Osteopenia Mass of right breast [facility] (current) use of 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 Brother No problems noted. 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 Current occupational exposures/hazards: No Cognitive needs: No Hearing needs: No Vision needs: Yes Meds Allergies Allergy/AdvReac Type Severity Reaction Status Date / Time oxycodone Allergy Intermediate Itching Verified 05/12/24 08:16 penicillin V Allergy Intermediate rash Verified 05/12/24 08:16 Sulfa (Sulfonamide Allergy Intermediate rash Verified 05/12/24 08:16 Antibiotics) atorvastatin AdvReac Intermediate Headache Verified 05/12/24 08:16 Home Medications ?Medication ?Instructions ?Recorded ?Confirmed ?Last Taken ?Type calcium carbonate (Calcium 500) 500 mg PO BEDTIME 02/03/20 05/12/24 Unknown History multivitamin 1 tab PO BEDTIME 02/03/20 05/12/24 Unknown History levonorgestrel 0.15 mg-ethinyl 1 tab PO BEDTIME 05/01/24 05/12/24 Unknown Hi story estradiol 30 mcg tablets,3 mos pack(91) Exam Exam Date and Time: 05/12/24 1005 Height,Weight and Vital Signs: Height 5 ft 3 in Weight 109.316 kg Last Vital Signs Pulse 89 05/01/24 13:24 Resp 18 05/01/24 13:24 BP 147/78 H 05/01/24 13:24 Pulse Ox 96 05/01/24 13:24 O2 Del Method Room Air 05/01/24 13:24 Vital Signs Pulse Rate 89 05/01/24 13:24 Respiratory Rate 18 05/01/24 13:24 Blood Pressure 147/78 H 05/01/24 13:24 Pulse Oximetry 96 05/01/24 13:24 Oxygen Delivery Method Room Air 05/01/24 13:24 Temperature 99.8 F 05/12/24 08:40 Pulse Rate 89 05/12/24 08:40 Respiratory Rate 16 05/12/24 08:40 Blood Pressure 125/64 05/12/24 08:40 Pulse Oximetry 96 05/12/24 08:40 Oxygen Delivery Method Room Air 05/12/24 08:40 Airway Mallampati Class: I TM Dist: >3cm Neck ROM: Limited Loose/Missing/Broken Teeth: No (patient denies any loose or broken teeth) Heart: S1S2 Lungs: CTAB Assessment and Plan Assessment Anesthesia Assessment: Anesthesia Plan Discussed and Chart Reviewed Final Anesthetic Review Family History of Problems with Anesthesia: No History of Problems with Anesthesia: No NPO: Yes ASA Class: II Final Preanesthetic Review: No Changes in Pt Med Stat, Meds/Allgs Chart Reviewed, Consent Obtained/Reviewed and Anes Risks/Benef Reviewed Patient Risk: Low Procedure Risk: Intermediate Anesthetic Plan Anesthetic Plan: GA and Agree w/ Assess. and Plan Disposition: Standard PACU
--- NOTE | 2024-05-12 12:05 | W.PM.OPN ---
Operative Note Operative Note Date of Service: 05/12/24 Narrative: Preoperative Diagnosis: Cervical radiculopathy, left side due to large disc herniations at C5-6 and C6-7 compressing the left C6 and C7 nerve roots Procedure : C5-6, C6-7 total disc arthropathy Informed Consent was obtained for this operation. I have explained the nature, purpose and benefits of the operation. I have discussed the risks and benefit of the operation including possible complications or adverse events with patient/family. Alternative(s) were discussed with the patient with their relative benefits and risks as well as the consequences of not accepting the operation were included in obtaining consent. Surgeon: LUZMARIA JUAREZ MD, PHD Procedure Assisted By: milad Sotelo Description of Procedure: This patient is suffering from severe cervical radiculopathy with the MRI showing large extruded disc herniation at C5-6 and C6-7 compressing the left C6 and C7 nerve roots. She has no degenerative changes and therefore she is a good candidate for artificial disc replacement surgery. The procedure and complications were explained. The patient was consented. The patient was brought to the operating room and endotracheally intubated. The patient was put in supine position with slight extension of the neck. Prep and drape was done followed by timeout. A mid cervical incision was made followed by opening of the platysma. The prevertebral fascia was reached following the natural planes while the physician behavioral assistant provided manual retraction. The prevertebral fascia was opened to expose the disc space. A spinal needle was placed in the disk space to confirm the correct levels with xray. The longus colli muscles were released bilaterally and a self retaining retractor was inserted. An initial diskectomy was done of C5-6 and C6-C7 towards the posterior annulus. Then attention was turned to the C5-C6 disc space Two [place] pins were placed in the C5-C6 vertebral bodies parallel to the endplates and distraction was give over the interspace. The microscope was brought in. The remainder of the discectomy was completed. The posterior ligament was opened and resected to expose the underlying dura. Large herniated disc fragments were removed from the left paracentrally to decompress the spinal cord and exiting nerve root. A trial implant was inserted to determine the correct implant size is. Then an artificial disc of sentinel spine of 15 x 12 and 5 mm height was inserted under fluoroscopic guidance. Final x-rays in AP and lateral projection showed a satisfactory position of the implant. Then attention was turned to the C6-7 disc space. [place] pins were placed in the C6 and C7 vertebral bodies parallel to the endplates and distraction was given. The diskectomy was completed towards the posterior longitudinal ligament which was accordingly opened. I was able to retrieve very large fragments of disc herniation from the left foramen which led to a good decompression of the C7 nerve root. Again a 15 x 12 and 5 mm height artificial disc was implanted under fluoroscopic guidance. Final x-rays in AP and lateral projection showed a good position of the 2 devices. The physician behavioral assistant took over. The [place] pins were removed. Hemostasis was done. He closed the incision in 2 layers with a 3-0 Vicryl. Steri-Strips used to approximate incision. An OpSite with Tegaderm was used to cover the incision. All sponge and needle counts were correct. Patient was extubated and transported in stable is to recovery room. Anesthesia: General Estimated Blood Loss (ml): 35 Duration of Surgery: 75 minutes Postoperative Plan: Discharge home Complications: None
--- NOTE | 2024-05-12 12:55 | PM.DS ---
DS: Providers Provider Date of Service: 05/12/24 Date of discharge: 05/12/24 Primary care physician: LAUREN Almaguer DS: Diagnosis Discharge Diagnosis (1) Cervical disc herniation: Status: Acute DS: Summary Time Attestation Discharge Coordination Time (in mins): 5 Quality: Safe Use of Opioids Does Pt have an Active Cancer Diagnosis on the Problem List?: No Quality: Stroke Does the patient have a stroke diagnosis?: No Physical Exam Vital Signs: Vital Signs: Last Vital Signs Temp 98.2 F 05/12/24 12:22 Pulse 80 05/12/24 12:37 Resp 16 05/12/24 12:37 BP 141/84 H 05/12/24 12:37 Pulse Ox 96 05/12/24 12:37 O2 Del Method Nasal Cannula wit h Capnography 05/12/24 12:37 O2 Flow Rate 2 05/12/24 12:37 BMI result Body Mass Index 41.8 DS: Data Data Completed and Pending Labs on day of discharge: Laboratory Results - last 24 hr 05/12/24 08:15 Urine Test NEGATIVE Discharge Plan Discharge Patient Disposition: Home, Self-Care Referrals: Jenni Luna FNP-BC [Primary Care Provider] - 1 Week Discharge Medications: New docusate sodium [Colace] 100 mg capsule 100 mg PO BID Qty: 20 0RF hydrocodone-acetaminophen 5-325 mg tablet 1 tab PO Q4H PRN (Reason: pain) Qty: 30 0RF Rx Instructions: Partial Fill upon patient request. Continued levonorgestrel-ethinyl estrad 0.15 mg-30 mcg (91) tablets,dose pack,3 month 1 tab PO BEDTIME bupropion HCl [Wellbutrin XL] 150 mg tablet extended release 24 hr 150 mg PO QAM Qty: 90 1RF calcium carbonate [Calcium 500] 500 mg calcium (1,250 mg) tablet 500 mg PO BEDTIME multivitamin Tablet 1 tab PO BEDTIME pravastatin 10 mg tablet 10 mg PO BEDTIME Qty: 90 1RF levothyroxine 75 mcg tablet 75 mcg PO DAILY Qty: 90 4RF Discharge Orders: Discharge Order (Routine); Ordered 05/12/24 Ordered By: Tino Toledo Diet: Advance to usual diet Activity on Discharge: As tolerated Activity Restrictions/Additional Instructions: After your spinal surgery we ask you to observe the following restrictions/guidelines: Activity: It is normal to feel some discomfort as you increase your activity, but that will improve with time. We ask you avoid heavy lifting or acitivities that cause pain. As a general rule, 8lbs is a safe limit for lifting right after surgery. Walk as much as you feel comfortable but not to exhaustion. You will feel extra tired the first few days after surgery. Stay well hydrated. It is OK to walk up and down stairs You may return to driving when you are off narcotics (such as vicodin, oxycodone, dilaudid, etc), and you are back to normal functional capacity. If you have any concerns please check with office before driving. Return to work is specific to each patient and each surgery, so please speak with your doctor/PA at first follow up. Please bring paperwork such as FMLA at that time if you need it filled out. Medications: For optimum pain control, it is best to start with a combination of 500 mg of Tylenol every 4 hours with 600 mg of Motrin every 8 hours, and use narcotics as needed in between for breakthrough pain. We will give you a short supply of narcotics after surgery (usually one weeks worth). If you need more please call the office but do not use more than prescribed. You will need to give our office 48 hours notice if you need narcotics refilled and we do not fill narcotics on weekends or evenings. If you are on a narcotic, it is a good idea to take a stool softener such as colace or senna to avoid constipation If you take blood thinner such as aspirin, Plavix, Coumadin, Effient, Eliquis etc for conditions such as Afib, DVT, Pulmonary embolus, coronary disease, stents etc please speak with your surgeon about specific details as to when you can resume these medications. You can resume NSAIDs on post op day 1 (eg: Motrin, Naproxen, etc). Follow up: Please call the office, , after surgery to arrange a 3 week follow up for wound check. Wound Care: You may remove your dressing on the first day after surgery. ?You may ?leave open to air. Please do not remove the steri strips underneath. they will fall off on their own in one week. IT IS NORMAL FOR THE WOUND TO OOZE OR BE BLOODY FOR A FEW DAYS AFTER SURGERY. ?IF THIS HAPPENS JUST PLACE NEW DRESSING OVER IT TO AVOID STAINING CLOTHES. You may shower on post op day # 1 We ask that you do not let the water soak the wound. If it does get wet, just towel dry lightly. Please do not scrub your incision or place any type of chemical/ointment on the wound. No tub baths, pools or jacuzzis for one month. If you have any leaking or redness from your wound, or fevers, please call office Print Language: Lithuanian
== END 2024-05-12 14:46 | disposition home or self-care (01) ==
PROVIDERS: Anesthesiology; Nurse Practitioner; PCP Nurse Practitioner Family; Visit Provider Neurological Surgery
PROC: (CPT 22856; principal; 2024-05-12 10:10)
DX: M50.122 Cervical disc disorder at C5-C6 level with radiculopathy (principal); M50.123 Cervical disc disorder at C6-C7 level with radiculopathy; M79.602 Pain in left arm; E66.9 Obesity, unspecified; Z68.41 Body mass index [BMI] 40.0-44.9, adult; M85.80 Other specified disorders of bone density and structure, unspecified site; E55.9 Vitamin D deficiency, unspecified; E06.3 Autoimmune thyroiditis; E78.2 Mixed hyperlipidemia; F33.9 Major depressive disorder, recurrent, unspecified; F41.9 Anxiety disorder, unspecified; Z79.899 Other long term (current) drug therapy; Z88.0 Allergy status to penicillin; Z88.2 Allergy status to sulfonamides; Z88.5 Allergy status to narcotic agent; Z88.8 Allergy status to other drugs, medicaments and biological substances
CPT/HCPCS: 22856; 22858; 36415; 81025; 85025; C1776; J0131; J1100; J1171; J2003; J2250; J2405; J2704; J3010; J3371

== ENCOUNTER → 2024-05-12 07:35 | Outpatient (BNV) | payer OTHER, SELFPAY | PROVIDERS: PCP Nurse Practitioner Family; Visit Provider Neurological Surgery | DX: M50.20 Other cervical disc displacement, unspecified cervical region (principal) | CPT/HCPCS: 22856; 22858; 99499 ==

== ENCOUNTER 2024-06-02 13:19 | Outpatient (REF) | payer OTHER, SELFPAY | END 2024-06-02 13:20 | disposition home or self-care (01) | LOC: HO.HOSX 13:19 | PROVIDERS: PCP Internal Medicine; Visit Provider Physician Assistant | DX: Z13.89 Encounter for screening for other disorder (principal) ==

== ENCOUNTER 2024-06-02 13:19 | Outpatient (AMB) | payer OTHER, SELFPAY ==
--- NOTE | 2024-06-02 13:22 | A.SPINEOV_ITS ---
Intake Visit Reasons: 1st post op Intake Note: Ms. De La Rosa is here today for her 1st post op visit. [employer]ed [employer] Boards Laminator Required: No Allergies oxycodone Allergy (Intermediate, Verified 06/02/24 13:23) Itching penicillin V Allergy (Intermediate, Verified 06/02/24 13:23) rash Sulfa (Sulfonamide Antibiotics) Allergy (Intermediate, Verified 06/02/24 13:23) rash atorvastatin Adverse Reaction (Intermediate, Verified 06/02/24 13:23) Headache Assessment & Plan Assessment & Plan (1) H/O cervical spine surgery: Code(s): Z98.890 - Other specified postprocedural states Category: Surgical Plan Procedure: C5-6, C6-7 total disc arthropathy Arlen is a pleasant 49 year old female who is about 3 weeks out from her 2 level total disc arthroplasty. She is overall doing very well since surgery. She reports some pain in the back of her neck, but is otherwise doing well. She feels she has full strength in her upper extremities and is completing her ADLs without issue. She inquired during this visit about returning to work and asked that we complete return to work paperwork for her, which I did during this visit. No new neurological deficits. The patient ambulates well and rises from a seated position without difficulty. She has 5/5 strength in her upper extremities bilaterally. Anterior incision site is clean, dry, with no evidence of drainage or excess swelling. The patient meets medical criteria to return to work. 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 I would like her to follow up again in 6 weeks with a set of x-rays to review with us. Alejandro Mcnulty MD,PhD [facility] Orders: Orders XR cervical spine 4V 06/02/24 Z98.890 - Other specified postprocedural states Coding Level of Care Code Global (35217) Diagnoses H/O cervical spine surgery Z98.890
== END 2024-06-02 13:43 | disposition home or self-care (01) ==
PROVIDERS: PCP Internal Medicine; Visit Provider Physician Assistant
DX: Z98.890 Other specified postprocedural states (principal)
CPT/HCPCS: 99024

== ENCOUNTER 2024-07-16 15:04 | Outpatient (AMB) | payer OTHER, SELFPAY ==
--- NOTE | 2024-07-16 15:06 | A.SPINEOV_ITS ---
Intake Visit Reasons: 2nd post op Intake Note: Ms. De La Rosa is here today for her 2nd post op with xrays. Uke Driver Required: No Allergies oxycodone Allergy (Intermediate, Verified 06/02/24 13:23) Itching penicillin V Allergy (Intermediate, Verified 06/02/24 13:23) rash Sulfa (Sulfonamide Antibiotics) Allergy (Intermediate, Verified 06/02/24 13:23) rash atorvastatin Adverse Reaction (Intermediate, Verified 06/02/24 13:23) Headache Assessment & Plan Assessment & Plan (1) H/O cervical spine surgery: Code(s): Z98.890 - Other specified postprocedural states Category: Medical Plan Mrs De La Rosa is 2 months out from her C5-6, C6-7 total disc arthroplasty. Her preoperative pain was gone the 1st day after surgery. She still gets a little bit of stiffness in her neck but nothing concerning. I did x-rays today and they show good placement of the hardware and good mobility of the artificial disc implants with flexion and extension. I do not see any signs of auto fusion. At this point she has no restrictions and can resume all activities as tolerated. We will see her back down the road if something changes. Tino Mcnulty MD, PhD [facility] Orders: Orders XR cervical spine 4V Today Z98.890 - Other specified postprocedural states XR cervical spine 4V Today Z98.890 - Other specified postprocedural states Coding Level of Care Code Global (59952) Diagnoses H/O cervical spine surgery Z98.890
== END 2024-07-16 15:19 | disposition home or self-care (01) ==
LOC: HO.HNS 15:04
PROVIDERS: PCP Internal Medicine; Visit Provider Physician Assistant
DX: Z98.890 Other specified postprocedural states (principal)
CPT/HCPCS: 99024

== ENCOUNTER 2024-07-16 15:04 | Outpatient (REF) | payer OTHER, SELFPAY ==
--- NOTE | ~2024-07-16 | XR_ITS ---
EXAMINATION: XR CERVICAL SPINE CLINICAL INFORMATION: Z98.890 - Other specified postprocedural states; arthrodesis status. COMPARISON: MR cervical spine 02/18/2024. TECHNIQUE: 4 views of the cervical spine, inclusive of flexion and extension views, were obtained. FINDINGS: There is no scoliosis. There is a normal lordosis. There are no fractures, compression deformities, or suspicious bone lesions. There has been anterior fusion at C5-6 and C6-7 with disc prostheses. Hardware appears intact, without definite loosening. Craniocervical junction and C1-2 articulation are intact and aligned. There are no subluxations. There is anatomical alignment. Facets are normally aligned with mild multilevel degenerative facet arthrosis. Discs demonstrate mild narrowing at C4-5. Remainder of the nonoperative disc levels appear normal. On flexion exam, there is no change in the alignment of the spine. On extension exam, there is no change in the alignment of the spine. There is no evidence of instability. The prevertebral and paravertebral soft tissues are normal. The lung apices are clear. XR/XR cervical spine 4V IMPRESSION: 1. No acute bony abnormalities of the cervical spine. 2. Arthrodesis C5-6 and C6-7 without complication. 3. Mild disc degeneration C4-5, and mild multilevel facet degeneration. 4. No subluxations and no evidence of instability on flexion and extension. Electronically signed by: Presley Herrera MD 07/17/2024 11:55 AM EDT
== END 2024-07-16 15:05 | disposition home or self-care (01) ==
LOC: HO.HOSX 15:04
PROVIDERS: PCP Internal Medicine; Visit Provider Physician Assistant
DX: Z48.89 Encounter for other specified surgical aftercare (principal)
CPT/HCPCS: 72050

== ENCOUNTER → 2024-07-16 15:08 | Outpatient (BNV) | payer OTHER, SELFPAY | PROVIDERS: PCP Internal Medicine; Visit Provider Radiology Diagnostic Radiology | DX: Z98.890 Other specified postprocedural states (principal) | CPT/HCPCS: 72050 ==

== ENCOUNTER 2024-08-06 07:06 | Outpatient (REF) | payer OTHER, SELFPAY ==
[2024-08-06 08:12] LABS: Cholesterol 188 mg/dL (<200); HDL Cholesterol 60 mg/dL (>40); LDL Cholesterol Calculated 112 mg/dL (<100); Triglycerides 80 mg/dL (<150)
[2024-08-06 08:29] LABS: TSH reflex Free T4 1.03 uIU/mL (0.32-4.0)
== END 2024-08-06 07:07 | disposition home or self-care (01) ==
LOC: HO.LAB 07:06
PROVIDERS: PCP Nurse Practitioner Family; Visit Provider Nurse Practitioner Family
DX: E03.8 Other specified hypothyroidism (principal); E06.3 Autoimmune thyroiditis; E78.2 Mixed hyperlipidemia; E03.9 Hypothyroidism, unspecified
CPT/HCPCS: 36415; 80061; 84443

== ENCOUNTER 2024-08-07 10:17 | Outpatient (REF) | payer OTHER, SELFPAY | END 2024-08-07 10:18 | disposition home or self-care (01) | LOC: HO.MAMMO 10:17 | PROVIDERS: PCP Nurse Practitioner Family; Visit Provider Nurse Practitioner Family | DX: Z12.31 Encounter for screening mammogram for malignant neoplasm of breast (principal) | CPT/HCPCS: 77063; 77067 ==

== ENCOUNTER → 2024-08-07 10:30 | Outpatient (BNV) | payer OTHER, SELFPAY | PROVIDERS: PCP Nurse Practitioner Family; Visit Provider Internal Medicine | DX: Z12.31 Encounter for screening mammogram for malignant neoplasm of breast (principal) | CPT/HCPCS: 77063; 77067 ==

== ENCOUNTER 2024-08-14 08:24 | Outpatient (AMB) | payer OTHER, SELFPAY ==
--- NOTE | 2024-08-14 08:27 | MHC.PC.OV ---
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 Required: No Allergies oxycodone Allergy (Intermediate, Verified 08/14/24 08:55) Itching penicillin V Allergy (Intermediate, Verified 08/14/24 08:55) rash Sulfa (Sulfonamide Antibiotics) Allergy (Intermediate, Verified 08/14/24 08:55) rash acetaminophen [From Vicodin] Adverse Reaction (Severe, Verified 08/14/24 08:55) Flushing hydrocodone [From Vicodin] Adverse Reaction (Severe, Verified 08/14/24 08:55) Flushing atorvastatin Adverse Reaction (Intermediate, Verified 08/14/24 08:55) Headache Medication List - Last Reconciled 08/14/24 by ADARSH Almaguer- bupropion HCl XL (Wellbutrin XL) 150 mg PO QAM calcium carbonate (Calcium 500) 500 mg PO BEDTIME docusate sodium (Colace) 100 mg PO BID levonorgestrel-ethinyl estrad 0.15 mg-30 mcg (91) 1 tab PO BEDTIME levothyroxine 75 mcg PO DAILY multivitamin 1 tab PO BEDTIME pravastatin 10 mg PO BEDTIME Tobacco use date assessed: 08/14/24 Dental Screening Dental Screen Date: 08/14/24 Did you have a dental visit in the last 12 months?: Yes Did you have a dental problem in the last 6 months where you did not have access to dental care?: No Was dental information given to patient?: Patient has dentist HPI HPI Comments History of Present Illness Details 49-year-old female with hypothyroidism, obesity, hyperlipidemia, hypogonadism, nontoxic multinodular goiter, osteopenia, vitamin-D deficiency, diverticulosis, seasonal allergies Surgical hx: CTS on LUE, lap hannah, C5-6, C6-7 total disc arthroplasty 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 Still has some stiffness when moving neck to the R. Over the last few weeks having tenderness over incision. Denies fever, chills, trauma to the area. Swallowing fine. HLD on statin; did start Dupage Bergomot with great improvement!!! Hypothyroid: Apr 2024 visit w/ Endo at [employer] Mood: cont on wellbutrin. This has worked quite well. Has only had episodes. Has social stressors. Plan: Cont all meds, including Dupage Bergomot Monitor scar, likely nerve related and should get better w/ time. Let myself or neurosurg know if worsening. Cont care w care team RTO 6 months CPE with labs 1 week before, sooner PRN Total time spent caring for the patient today was 42 minutes. This includes time spent before the visit reviewing the chart, time spent during the visit, and time spent after the visit on documentation, reviewing laboratory results, diagnostic imaging, medications, performing a medically necessary evaluation, counseling on diagnoses, care coordination, ordering appropriate tests, ordering appropriate medications, review of tests performed by other providers, reporting test results with the patient, communication with other healthcare providers. 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 Brother No problems noted. 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 [facility] Are you a primary respiratory care practitioner to a significant other at home: Yes Do you presently have visiting nurse or other home services: No Alcohol intake: current Alcohol intake frequency: holidays/special occasions only Patient Tobacco Use Status: Never used Tobacco e-Cigarette/Vaping Use: Never Used Second Hand Smoke Exposure: No service: No Current occupational status: employed 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 1. Little interest or pleasure in doing things: several days 2. Feeling down, depressed, or hopeless: several days 3. Trouble falling or staying asleep, or sleeping too much: several days 4. Feeling tired or having little energy: several days 5. Poor appetite or overeating: not at all 6. Feeling bad about yourself - or that you are a failure or have let yourself or your family down: several days 7. Trouble concentrating on things, such as reading the newspaper or watching television: not at all 8. Moving or speaking so slowly that other people could have noticed. Or the opposite - being so fidgety or restless that you have been moving around a lot more than usual: not at all 9. Thoughts that you would be better off or of hurting yourself in some way: not at all Total score: 5 Depression Screening Interpretation: Positive Depression Screening Follow-up: Existing condition Depression Screening Done: Yes 63748 - PHQ-9 Billing: Yes Source: Developed by Drs. Jerald Sharma, Jordyn Beauchamp, Kaz Rossi and colleagues, with an educational tyra from [employer]. Thrive Questionnaire Date Thrive assessed: 08/14/24 I am a: Patient What is your living situation today?: I have a steady place to live Within the past 12 months, did the food you bought not last and you didn't have the money to get more?: Never true Within the past 12 months, did you worry whether your food would run out before you got money to buy more?: Never true Do you have trouble paying for medicines?: No Do you have trouble getting transportation to medical appointments?: No Do you have trouble paying your heating and electricity bill?: No Do you have trouble taking care of your child, family member or friend?: No Do you have trouble with day-to-day activities such as bathing, preparing meals, shopping, managing finances, etc.?: No Are you currently unemployed and looking for a job?: No Are you interested in more education?: No Please select the resources that you would like help with: None Currently or been in a relationship where the following occur: No concerns reported THRIVE Score: 0 AUDIT C Alcohol Use Questionnaire (AUDIT-C) 1. How often do you have a drink containing alcohol?: Monthly or less 2. How many drinks containing alcohol do you have on a typical day when you are drinking?: 1 or 2 3. How often do you have six or more drinks on one occasion?: Never Total Score: 1 Score Reviewed/Action Taken: Yes ANJALI-7 AMB Questionnaire ANJALI-7 Date ANJALI - 7 assessed: 08/14/24 Feeling nervous, anxious, or on edge: 0 = Not at all Not being able to stop or control worryin = Not at all Worrying too much about different things: 1 = Several days Trouble relaxin = Several days Being so restless that it is hard to sit still: 0 = Not at all Becoming easily annoyed or irritable: 0 = Not at all Feeling afraid as if something awful might happen: 0 = Not at all Total ANJALI-7 score (0-4 normal; 5-9 mild; 10-14 moderate; 15-21 severe): 2 Source: Developed by Drs. Jerald Sharma, Jordyn Beauchamp, Kaz Rossi and colleagues, with an educational tyra from [employer] ANJALI-7 Assessment Billing ANJALI-7 Assessment Tool: ANJALI-7 Assessment 66546 Physical exam (Primary Care) Vital Signs: Last Vital Signs Temp 97.5 F 08/14/24 08:30 Pulse 93 08/14/24 08:30 Resp 13 08/14/24 08:30 BP 138/74 08/14/24 08:30 Pulse Ox 98 08/14/24 08:30 Oxygen Delivery Method Room Air 08/14/24 08:30 BMI result Body Mass Index 43.7 BMI Assessment/Plan discussion: High BMI High, discussed plan: lifestyle Tobacco/Smoking Status: Tobacco use Status Tobacco use date assessed 08/14/24 08/14/24 08:32 Patient Tobacco Use Status Never used Tobacco 08/14/24 08:32 e-Cigarette/Vaping Use Never Used 08/14/24 08:32 PHQ-9: PHQ-9 Score PHQ-9: Total score 5 08/14/24 08:32 Depression Screening Interpretation: Positive Depression Screening Follow-up: Existing condition Thrive Assessment: Date of Thrive Assessment Date Thrive assessed 08/14/24 08/14/24 08:32 Currently or been in a relationship where the following occur: No concerns reported Advance Care Planning discussion: Exists, not on file Date of discussion: 02/12/24 Who was present: self Forms completed: Health Care Proxy Time spent: 1-15 minutes, not on file Actual minutes spent: 2 Const Other: General: Well developed, well nourished, in no acute distress. Appears stated age. Head: Normocephalic, atraumatic. Eyes: Pupils are equal, round and reactive to light and accommodation. Conjunctivae are clear. Vision grossly normal. Ears: TMs clear AU, EACS WNL Neck: Supple, no adenopathy. Nontender thyromegaly. Well healed surgical incision tender to touch w/o erythema or fluctuance Lungs: Clear to auscultation bilaterally. No rales, rhonchi or wheeze noted. Good air flow in all dahl. Heart: Regular rate and rhythm. No murmurs, click, rubs or gallops are noted. Abdomen: Bowel sounds present in all quadrants. The abdomen is soft, nontender, with no masses or organomegaly noted. No hernias are noted. Musculoskeletal: Joints are nontender, without swelling, redness, or effusions. Range of motion is observed to be normal. Pulses: Peripheral pulses are equal and palpable bilaterally. Extremities: No clubbing, cyanosis nor edema is noted. Psych: Normal eye contact, affect and mood appropriate, and normal interactions. Patient is alert and appropriate to context. 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 E03.8; E06.3 Hypothyroidism type: due to Salma's thyroiditis Moderate episode of recurrent major depressive disorder F33.1 Major depression episode severity: moderate Non-toxic multinodular goiter E04.2 Additional Codes ANJALI-7 Assessment Billing - ANJALI-7 Assessment Tool: ANJALI-7 Assessment 23203 ([id number]) PHQ-9 - 39206 - PHQ-9 Billing: Yes ([id number]) Vital Signs *Quality* - Advance Care Planning discussion: Exists, not on file ([id number]) Vital Signs *Quality* - Time spent: 1-15 minutes, not on file ([id number]) Assessment & Plan Assessment & Plan (1) Hyperlipidemia: Comment: on pravastatin 10 mg po QD and citrus bergomot Code(s): E78.5 - Hyperlipidemia, unspecified Category: Medical Qualifiers: Hyperlipidemia type: mixed hyperlipidemia Qualified Code(s): E78.2 - Mixed hyperlipidemia (2) Vitamin D deficiency: Comment: managed by Endo Code(s): E55.9 - Vitamin D deficiency, unspecified Category: Medical (3) ANJALI (generalized anxiety disorder): Code(s): F41.1 - Generalized anxiety disorder Category: Medical (4) Adult BMI 40.0-44.9 kg/sq m: Code(s): Z68.41 - Body mass index [BMI] 40.0-44.9, adult Category: Medical (5) Hypothyroidism: Comment: on levothyroxine taking as directed euthyroid on most recent labs managed by Endo Code(s): E03.9 - Hypothyroidism, unspecified Category: Medical Qualifiers: Hypothyroidism type: due to Salma's thyroiditis Qualified Code(s): E03.8 - Other specified hypothyroidism; E06.3 - Autoimmune thyroiditis (6) MDD (major depressive disorder), recurrent episode: Code(s): F33.9 - Major depressive disorder, recurrent, unspecified Category: Medical Qualifiers: Major depression episode severity: moderate Qualified Code(s): F33.1 - Major depressive disorder, recurrent, moderate (7) Non-toxic multinodular goiter: Code(s): E04.2 - Nontoxic multinodular goiter Category: Medical Plan . Orders: Orders Complete Blood Count no Diff 6 Months E55.9 - Vitamin D deficiency, unspecified, E78.2 - Mixed hyperlipidemia, F41.1 - Generalized anxiety disorder Ferritin 6 Months E55.9 - Vitamin D deficiency, unspecified, E78.2 - Mixed hyperlipidemia, F41.1 - Generalized anxiety disorder Hemoglobin A1c 6 Months E55.9 - Vitamin D deficiency, unspecified, E78.2 - Mixed hyperlipidemia, F41.1 - Generalized anxiety disorder TSH reflex Free T4 6 Months E55.9 - Vitamin D deficiency, unspecified, E78.2 - Mixed hyperlipidemia, F41.1 - Generalized anxiety disorder Vitamin D 25-OH Total 6 Months E55.9 - Vitamin D deficiency, unspecified, E78.2 - Mixed hyperlipidemia, F41.1 - Generalized anxiety disorder Comprehensive Met. Panel 6 Months E55.9 - Vitamin D deficiency, unspecified, E78.2 - Mixed hyperlipidemia, F41.1 - Generalized anxiety disorder Lipid Panel 6 Months E55.9 - Vitamin D deficiency, unspecified, E78.2 - Mixed hyperlipidemia, F41.1 - Generalized anxiety disorder Microalbumin, Random (w Creat) 6 Months E55.9 - Vitamin D deficiency, unspecified, E78.2 - Mixed hyperlipidemia, F41.1 - Generalized anxiety disorder Vitamin B12 and Folate 6 Months E55.9 - Vitamin D deficiency, unspecified, E78.2 - Mixed hyperlipidemia, F41.1 - Generalized anxiety disorder Medications: Refilled pravastatin 10 mg PO BEDTIME 90 tabs 1RF E78.5 - Hyperlipidemia, unspecified Discontinued docusate sodium (Colace) Discontinued Reason: Patient Completed Course 100 mg PO BID 20 caps 0RF
[2024-08-14 08:30] VITALS: BP 138/74; PULSE 93; RESP 13; TEMP 36.4; O2SAT 98; BMI 43.7
== END 2024-08-14 09:31 | disposition home or self-care (01) ==
LOC: HO.HMCFM 08:25
PROVIDERS: PCP Nurse Practitioner Family; Visit Provider Nurse Practitioner Family
DX: E78.2 Mixed hyperlipidemia (principal); E55.9 Vitamin D deficiency, unspecified; F33.1 Major depressive disorder, recurrent, moderate; Z68.41 Body mass index [BMI] 40.0-44.9, adult; F41.1 Generalized anxiety disorder; E03.8 Other specified hypothyroidism; E06.3 Autoimmune thyroiditis; E04.2 Nontoxic multinodular goiter; Z00.00 Encounter for general adult medical examination without abnormal findings

== ENCOUNTER → 2024-08-14 08:24 | Outpatient (BNVA) | payer OTHER, SELFPAY | PROVIDERS: PCP Nurse Practitioner Family; Visit Provider Nurse Practitioner Family | DX: E78.2 Mixed hyperlipidemia (principal); E55.9 Vitamin D deficiency, unspecified; F41.1 Generalized anxiety disorder; E06.3 Autoimmune thyroiditis; E03.8 Other specified hypothyroidism; F33.1 Major depressive disorder, recurrent, moderate; E04.2 Nontoxic multinodular goiter; Z79.899 Other long term (current) drug therapy | CPT/HCPCS: 96127 ==

== ENCOUNTER 2024-09-04 10:08 | Outpatient (AMB) | payer OTHER, SELFPAY ==
--- NOTE | 2024-09-04 10:20 | MHC.OFFWIV ---
Intake Vital Signs 09/04/24 10:22 Height 5 ft 3 in Weight 245 lb 4 oz BMI 43.4 BP 150/78 H Blood Pressure Location Rt brachial Position Sitting Respiration 13 Pulse 72 Pulse Source Pulse Oximeter Temp 97.4 F Temp Source Oral Pulse Oximetry (%) 98 Oxygen Delivery Method Room Air Intake Visit Reasons: Rash Intake Note: Patient c/o itchy rash on neck x 1 week. Patient also c/o left heal px x 2 weeks Patient Tobacco Use Status: Never used Tobacco Allergies oxycodone Allergy (Intermediate, Verified 09/04/24 10:57) Itching penicillin V Allergy (Intermediate, Verified 09/04/24 10:57) rash Sulfa (Sulfonamide Antibiotics) Allergy (Intermediate, Verified 09/04/24 10:57) rash acetaminophen [From Vicodin] Adverse Reaction (Severe, Verified 09/04/24 10:57) Flushing hydrocodone [From Vicodin] Adverse Reaction (Severe, Verified 09/04/24 10:57) Flushing atorvastatin Adverse Reaction (Intermediate, Verified 09/04/24 10:57) Headache Medication List - Last Reconciled 09/04/24 by Jenni Luna, MARKETING PRODUCTION COORDINATOR- betamethasone dipropionate 0.05% 1 appl topical BID bupropion HCl XL (Wellbutrin XL) 150 mg PO QAM calcium carbonate (Calcium 500) 500 mg PO BEDTIME levonorgestrel-ethinyl estrad 0.15 mg-30 mcg (91) 1 tab PO BEDTIME levothyroxine 75 mcg PO DAILY multivitamin 1 tab PO BEDTIME pravastatin 10 mg PO BEDTIME Do you need a note to return to daycare/school/sports/work: No HPI HPI Comments History of Present Illness Details - The patient is a 49-year-old female presenting with a rash on the back of her neck. She noted the rash started as a small spot a few weeks ago, spreading with intermittent itching triggered by hair friction but is otherwise painless, and not related to any known new exposures. The rash is possibly allergic dermatitis. - Additionally, she reports pain and stiffness in the Achilles tendon, left, that started concurrently. The patient experiences stiffness and limping, particularly after being immobile, with symptoms improving slightly as the day progresses. She frequently goes barefoot and has changed her footwear to flats, which may contribute to the pain. There is no prior similar episode. Denies overt inj Physical Exam General: Well developed, well nourished, in no acute distress. Appears stated age. Musculoskeletal: Joints are nontender, without swelling, redness, or effusions. Achilles tendon on the left is tender and tight. FROM. LLE neurovasc intact. Pulses: Peripheral pulses are equal and palpable bilaterally. Extremities: No clubbing, cyanosis nor edema is noted. Psych: Mood and affect appropriate. Skin - see below; right side of neck. No warmth. No blistering. Discussion Notes I discussed with the patient that her rash appears to be allergic dermatitis. I recommended the use of a topical steroid cream, betamethasone, to be applied to the affected areas twice daily. I explained that improvement should be noticeable within 72 hours if the rash is allergic in nature. An oral antihistamine, like cetirizine, was suggested to help reduce systemic allergic reactions. Regarding the Achilles complaint, I suspect Achilles tendinitis aggravated by the use of flat shoes and walking barefoot. I advised on footwear modifications to incorporate arch support, avoidance of flat shoes, and the use of supportive footwear at all times, even at home. I provided instructions for at-home stretching exercises for the Achilles tendon and alternative supportive measures, including wearing high-top sneakers during rest. I also discussed other potential measures in managing the tendinopathy, including the possible use of a steroid injection if conservative management is ineffective, and the use of NSAIDs like ibuprofen for pain relief. Assessment and Plan 1. Allergic Dermatitis The rash on the neck, suspected to be allergic dermatitis, will be treated with betamethasone cream twice daily to promote resolution. The usage of a systemic antihistamine, such as cetirizine, was advised to mitigate allergic response. If infection signs develop, re-evaluation will be conducted. 2. Achilles Tendinitis Management includes the modification of footwear to ensure proper arch support and reduce strain on the Achilles tendon. Home exercises for tendon stretching were prescribed. Use of high-top sneakers during rest was suggested to prevent overnight strain. Ibuprofen was recommended for pain management. Patient Instructions - Apply the prescribed betamethasone cream thinly to rash areas twice every day. - Take an antihistamine like Zyrtec if symptoms persist. - Wear shoes with good arch support and avoid walking barefoot. - Perform Achilles tendon stretching exercises daily. - Use high-top sneakers during rest to support the Achilles tendon. - Take ibuprofen as needed for pain relief. - Watch for signs of infection on the rash and seek care if the rash does not improve after 72 hours. Consent. Patient was informed and verbally consented to the use of an ambient scribe for clinic note documentation during this visit. Total time spent caring for the patient today was 30 minutes. This includes time spent before the visit reviewing the chart, time spent during the visit, and time spent after the visit on documentation, reviewing laboratory results, diagnostic imaging, medications, performing a medically necessary evaluation, counseling on diagnoses, care coordination, ordering appropriate tests, ordering appropriate medications, review of tests performed by other providers, reporting test results with the patient, communication with other healthcare providers. [facility] Medical History (Updated 08/14/24 @ 09:32 by IVONNE [facility]maguerNEW [facility]) Anxiety Cubital tunnel syndrome, bilateral De Quervain's tenosynovitis, left Depression Salma's thyroiditis Hyperlipidemia Hypogonadotropic hypogonadism Hypothyroidism Impingement syndrome of right shoulder correction (current) use of 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 Mammogram normal Mass of right breast Mixed hyperlipidemia Non-toxic multinodular goiter Normal Pap smear Numbness of left hand Obesity Osteopenia Thyromegaly Tubular adenoma of colon Vitamin D deficiency Surgical History (Updated 08/14/24 @ 07:13 by Jenni Luna [facility]ETING [facility]ODUCTION [facility]) History of carpal tunnel surgery Hx laparoscopic cholecystectomy Hx of colonoscopy (03/2024) Family History Father Cancer of kidney FH: HTN (hypertension) Mother Breast cancer Brother No problems noted. Brother No problems noted. 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 [facility] Are you a primary career information specialist to a significant other at home: Yes Do you presently have visiting nurse or other home services: No Alcohol intake: current Alcohol intake frequency: holidays/special occasions only Patient Tobacco Use Status: Never used Tobacco e-Cigarette/Vaping Use: Never Used Second Hand Smoke Exposure: No service: No Current occupational status: employed 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 Current occupational exposures/hazards: No Cognitive needs: No Hearing needs: No Vision needs: Yes Physical Exam Vital Signs: Last Vital Signs Temp 97.4 F 09/04/24 10:22 Pulse 72 09/04/24 10:22 Resp 13 09/04/24 10:22 BP 150/78 H 09/04/24 10:22 Pulse Ox 98 09/04/24 10:22 Oxygen Delivery Method Room Air 09/04/24 10:22 BMI result Body Mass Index 43.4 Assessment & Plan Assessment & Plan (1) Contact dermatitis: Code(s): L25.9 - Unspecified contact dermatitis, unspecified cause Qualifiers: Contact dermatitis type: unspecified Contact dermatitis trigger: unspecified trigger Qualified Code(s): L25.9 - Unspecified contact dermatitis, unspecified cause (2) Achilles tendinitis of left lower extremity: Code(s): M76.62 - Achilles tendinitis, left leg Plan . Medications: New betamethasone dipropionate 0.05% 1 appl topical BID 45 grams 0RF Coding Level of Care Code Est Pt Level 4 (11846) Diagnoses Contact dermatitis, unspecified contact dermatitis type, unspecified trigger L25.9 Contact dermatitis type: unspecified Contact dermatitis trigger: unspecified trigger Achilles tendinitis of left lower extremity M76.62
[2024-09-04 10:22] VITALS: BP 150/78; PULSE 72; RESP 13; TEMP 36.3; O2SAT 98; BMI 43.4
== END 2024-09-04 11:13 | disposition home or self-care (01) ==
LOC: HO.HMCFM 10:09
PROVIDERS: PCP Nurse Practitioner Family; Visit Provider Nurse Practitioner Family
DX: L25.9 Unspecified contact dermatitis, unspecified cause (principal); M76.62 Achilles tendinitis, left leg

== ENCOUNTER → 2024-09-04 10:08 | Outpatient (BNVA) | payer OTHER, SELFPAY | PROVIDERS: PCP Nurse Practitioner Family; Visit Provider Nurse Practitioner Family ==

== ENCOUNTER 2025-01-21 07:28 | Outpatient (AMB) | payer OTHER, SELFPAY ==
[2025-01-21 07:30] VITALS: PULSE 88; O2SAT 98; BMI 44.5
--- NOTE | 2025-01-21 07:30 | MHC.PC.OV ---
Vital Signs 01/21/25 07:30 Height 5 ft 3 in Weight 251 lb BMI 44.5 Pulse 88 Pulse Source Pulse Oximeter Pulse Oximetry (%) 98 Oxygen Delivery Method Room Air Intake Visit Reasons: bug bite Allergies oxycodone Allergy (Intermediate, Verified 01/21/25 07:32) Itching penicillin V Allergy (Intermediate, Verified 01/21/25 07:32) rash Sulfa (Sulfonamide Antibiotics) Allergy (Intermediate, Verified 01/21/25 07:32) rash acetaminophen (From Vicodin) Adverse Reaction (Severe, Verified 01/21/25 07:32) Flushing hydrocodone (From Vicodin) Adverse Reaction (Severe, Verified 01/21/25 07:32) Flushing atorvastatin Adverse Reaction (Intermediate, Verified 01/21/25 07:32) Headache Medication List - Last Reconciled 01/21/25 by Jenni Luna, DRY END OPERATOR- betamethasone dipropionate 0.05% 1 appl topical BID bupropion HCl XL (Wellbutrin XL) 150 mg PO QAM calcium carbonate (Calcium 500) 500 mg PO BEDTIME levonorgestrel-ethinyl estrad 0.15 mg-30 mcg (91) 1 tab PO BEDTIME levothyroxine 75 mcg PO DAILY multivitamin 1 tab PO BEDTIME pravastatin 10 mg PO BEDTIME Tobacco use date assessed: 08/14/24 Dental Screening Dental Screen Date: 08/14/24 HPI HPI Comments History of Present Illness Details 49-year-old female with hypothyroidism, obesity, hyperlipidemia, hypogonadism, nontoxic multinodular goiter, osteopenia, vitamin-D deficiency, diverticulosis, seasonal allergies Surgical hx: CTS on LUE, lap hannah, C5-6, C6-7 total disc arthroplasty 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 Reports that she was in her normal state of health until Saturday when she noticed an area on the inside of her left lower extremity that resembled a bug bite. Initially it did not bother her. As the day progressed the area became larger in size and she started to notice that her left knee started to feel off specifically while climbing stairs. The area continued to get a little bit larger until Saturday morning. It has remained the same size since that time however the center of the area has be done to darken. It is mildly itchy and tender with palpation. She denies any fever, chills, trauma, known bite. No one else has this lesion. She has not tried any at home remedies. EXAM: Awake alert oriented no acute distress Speaking in full sentences Left lower extremity is neurovascularly intact. Left knee has full range of motion with mild crepitus. No erythema, edema or warmth. There is localized induration, no excessive warmth. TTP. No drainage. This is a picture she sent me yesterday of the area Plan: Advised to apply warm moist compresses. We will start on doxycycline 100 mg twice per day x 7 days. Advised to show me a picture on Saturday via tiger text. The goal would be to have improvement. If not will need to consider other differently diagnoses. Total time spent caring for the patient today was 30 minutes. This includes time spent before the visit reviewing the chart, time spent during the visit, and time spent after the visit on documentation, reviewing laboratory results, diagnostic imaging, medications, performing a medically necessary evaluation, counseling on diagnoses, care coordination, ordering appropriate tests, ordering appropriate medications, review of tests performed by other providers, reporting test results with the patient, communication with other healthcare providers. 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 Brother No problems noted. 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 [facility]: [facility] Are you a primary director day care center to a significant other at home: Yes Do you presently have visiting nurse or other home services: No Alcohol intake: current Alcohol intake frequency: holidays/special occasions only Patient Tobacco Use Status: Never used Tobacco e-Cigarette/Vaping Use: Never Used Second Hand Smoke Exposure: No service: No Current occupational status: employed 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 Current occupational exposures/hazards: No Cognitive needs: No Hearing needs: No Vision needs: Yes Questionnaire Thrive Questionnaire Date Thrive assessed: 08/07/24 I am a: Patient What is your living situation today?: I have a steady place to live Within the past 12 months, did the food you bought not last and you didn't have the money to get more?: Never true Within the past 12 months, did you worry whether your food would run out before you got money to buy more?: Never true Do you have trouble paying for medicines?: No Do you have trouble getting transportation to medical appointments?: No Do you have trouble paying your heating and electricity bill?: No Do you have trouble taking care of your child, family member or friend?: No Do you have trouble with day-to-day activities such as bathing, preparing meals, shopping, managing finances, etc.?: No Are you currently unemployed and looking for a job?: No Are you interested in more education?: No Please select the resources that you would like help with: None Currently or been in a relationship where the following occur: No concerns reported THRIVE Score: 0 ANJALI-7 AMB Questionnaire ANJALI-7 Date ANJALI - 7 assessed: 08/14/24 Source: Developed by Drs. Jerald Sharma, Jordyn Beauchamp, Kaz Rossi and colleagues, with an educational tyra from [employer] Physical exam (Primary Care) Tobacco/Smoking Status: Tobacco use Status Tobacco use date assessed 08/14/24 08/14/24 08:32 Patient Tobacco Use Status Never used Tobacco 09/04/24 10:24 e-Cigarette/Vaping Use Never Used 08/14/24 08:32 Thrive Assessment: Date of Thrive Assessment Date Thrive assessed 08/07/24 09/04/24 09:30 Currently or been in a relationship where the following occur: No concerns reported Coding Level of Care Code Est Pt Level 4 (75551) Complex EM visit Add On G2211 Diagnoses Cellulitis of leg without foot L03.119 Assessment & Plan Assessment & Plan (1) Cellulitis of leg without foot: Code(s): L03.119 - Cellulitis of unspecified part of limb Category: Medical Plan . Medications: New doxycycline hyclate 100 mg PO BID 14 caps 0RF 7 days
== END 2025-01-21 07:55 | disposition home or self-care (01) ==
LOC: HO.HMCFM 07:29
PROVIDERS: PCP Nurse Practitioner Family; Visit Provider Nurse Practitioner Family
DX: L03.119 Cellulitis of unspecified part of limb (principal)

== ENCOUNTER 2025-02-12 07:17 | Outpatient (REF) | payer OTHER, SELFPAY ==
[2025-02-12 07:44] LABS: Hematocrit 42.4 % (37.0-47.0); Hemoglobin 13.8 g/dl (12.0-16.0); Mean Corpuscular HGB Conc 32.5 g/dl (31.0-35.0); Mean Corpuscular Hemoglobin 28.5 pg (27.0-33.0); Mean Corpuscular Volume 87.6 fL (80.0-98.0); NRBC Abs Auto 0.000 X10*3/uL (0.0-0.012); NRBC Pct Auto 0.0 /100WBC (0.0-0.2); Platelet Count 334 X10*3/uL (160-400); Red Blood Count 4.84 X10*6/uL (4.20-5.50); White Blood Count 8.3 X10*3/uL (4.8-10.8)
[2025-02-12 08:34] LABS: Microalbum/Creatinine Ratio Ur 3.8 ug/mg cr (<30)
[2025-02-12 08:36] LABS: Alanine Aminotransferase 27 U/L (0-31); Albumin Level 4.5 g/dL (3.5-5.0); Alkaline Phosphatase 69 U/L (39-117); Anion Gap 10 (12-20); Aspartate Amino Transferase 25 U/L (5-31); Blood Urea Nitrogen 13 mg/dL (9-16); Calcium 9.4 mg/dL (8.4-10.2); Carbon Dioxide 24 mmol/L (22-29); Chloride 110 mmol/L (96-108); Cholesterol 210 mg/dL (<200); Estimated Glomerular Filt Rate > 60; HDL Cholesterol 60 mg/dL (>40); Potassium 4.1 mmol/L (3.3-5.1); Sodium 140 mmol/L (135-145); Total Protein 7.6 g/dL (6.5-8.0); Triglycerides 89 mg/dL (<150)
[2025-02-12 08:56] LABS: Folate 14.6 ng/mL (> or = 4.0); Vitamin B12 402 pg/mL (200-900)
[2025-02-12 09:11] LABS: Ferritin 87 ng/mL (10-250)
== END 2025-02-12 07:18 | disposition home or self-care (01) ==
LOC: HO.LAB 07:17
PROVIDERS: PCP Nurse Practitioner Family; Visit Provider Nurse Practitioner Family
DX: Z13.1 Encounter for screening for diabetes mellitus (principal); F41.1 Generalized anxiety disorder; E78.2 Mixed hyperlipidemia; E55.9 Vitamin D deficiency, unspecified
CPT/HCPCS: 36415; 80053; 80061; 82043; 82306; 82570; 82607; 82728; 82746; 83036; 84443; 85027

== ENCOUNTER 2025-02-17 09:09 | Outpatient (AMB) | payer OTHER, SELFPAY ==
--- NOTE | 2025-02-17 09:12 | A.OFFPC_ITS ---
Vital Signs 02/17/25 09:15 Height 5 ft 3 in Weight 253 lb 8 oz BMI 44.9 BP 134/72 Blood Pressure Location Rt brachial Position Sitting Respiration 13 Pulse 88 Pulse Source Pulse Oximeter Temp 97.6 F Temp Source Oral Pulse Oximetry (%) 98 Oxygen Delivery Method Room Air Intake Visit Reasons: 6 months CPE Intake Note: CPE Turn Down Man Required: No Allergies oxycodone Allergy (Intermediate, Verified 02/17/25 09:30) Itching penicillin V Allergy (Intermediate, Verified 02/17/25 09:30) rash Sulfa (Sulfonamide Antibiotics) Allergy (Intermediate, Verified 02/17/25 09:30) rash acetaminophen (From Vicodin) Adverse Reaction (Severe, Verified 02/17/25 09:30) Flushing hydrocodone (From Vicodin) Adverse Reaction (Severe, Verified 02/17/25 09:30) Flushing atorvastatin Adverse Reaction (Intermediate, Verified 02/17/25 09:30) Headache Medication List - Last Reconciled 02/17/25 by Jenni Luna, COMMUNITY NURSE- betamethasone dipropionate 0.05% 1 appl topical BID bupropion HCl XL (Wellbutrin XL) 150 mg PO QAM calcium carbonate (Calcium 500) 500 mg PO BEDTIME doxycycline hyclate 100 mg PO BID 7 days levonorgestrel-ethinyl estrad 0.15 mg-30 mcg (91) 1 tab PO BEDTIME levothyroxine 75 mcg PO DAILY multivitamin 1 tab PO BEDTIME pravastatin 10 mg PO BEDTIME Tobacco use date assessed: 02/17/25 Dental Screening Dental Screen Date: 02/17/25 Did you have a dental visit in the last 12 months?: Yes Did you have a dental problem in the last 6 months where you did not have access to dental care?: No Was dental information given to patient?: Patient has dentist HPI HPI Comments History of Present Illness Details 49-year-old female with hypothyroidism, obesity, hyperlipidemia, hypogonadism, nontoxic multinodular goiter, osteopenia, vitamin-D deficiency, diverticulosis, seasonal allergies Surgical hx: CTS on LUE, lap hannah, C5-6, C6-7 total disc arthroplasty 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 Obesity: - BMI is 44.9. - Weight regained over seven and a half years. Hypothyroidism: - Managed with levothyroxine by endo Hyperlipidemia: - On pravastatin & citrus bergamot. Rece nt lipid profile w/ increase in the setting of ^ wt and change in eating habits Anxiety: - Current medication is bupropion. - Reports increased stress. Social History - Employment: Works in a demanding role; feels stressed with responsibilities. - Housing: Lives in a townhouse - Family status: Single mother with a 7- year-old son. - Exercise: Beginning to walk with a fri end. - Nutrition: Reports poor diet and stres s eating. - Weight management: Struggling with adina ght regain. Review of Systems - General: Reports weight struggle. - Psychiatric: Reports stress, feeling o verwhelmed. - Endocrine: Denies changes since last a ssessment. - Gastrointestinal: Denies bowel or urin chidi issues. Physical Exam General: Well developed, well nourished, in no acute distress. Appears stated age. Head: Normocephalic, atraumatic. Eyes: Pupils are equal, round and reactive to light and accommodation. Conjunctivae are clear. Scleras nonicteric bilat. Vision grossly normal. Ears: TMs clear AU, EACS WNL Nose: Patent, without discharge. Neck: No carotid bruit bilat. Supple, no adenopathy or thyromegaly. Breast: Edu on SBE Lungs: Clear to auscultation bilaterally. No rales, rhonchi or wheeze noted. Good air flow in all dahl. Heart: Regular rate and rhythm. No murmurs, click, rubs or gallops are noted. Abdomen: Bowel sounds present in all quadrants. The abdomen is soft, nontender, with no masses or organomegaly noted. No hernias are noted. : Deferred. Reviewed recommendations for routine INSTRUMENT CALIBRATOR Pulses: Peripheral pulses are equal and palpable bilaterally. Extremities: No clubbing, cyanosis nor edema is noted. Neurologic: Gait and station normal. Cranial Nerves 2-12 intact. Motor strength grossly symmetrical and intact. No sensory loss. Balance normal. Skin: No rashes, ulcers, or lesions noted. Turgor is good. Skin color is good. Hair and nails are without abnormalities. Psych: Normal eye contact, affect and mood appropriate, and normal interactions. Patient is alert and appropriate to context. Mood is pretty good on bupropion, but patient reports feeling stressed and overwhelmed. Results: see below - Labs: - Glucose level: 86 - A1c: 5.2 - Cholesterol: Elevated - Electrolytes, kidney function, and obey er function are normal. Discussion Notes During the visit, we discussed the patient's current medical issues and management strategies. We addressed her concerns over weight gain, with an emphasis on stress-related and emotional eating. We discussed her current exercise regimen, including starting walks with a peer. We reviewed her hypothyroidism treatment with levothyroxine as stable, addressed her cholesterol levels and the need for dietary changes, and continued anxiety management with bupropion. We explored health maintenance measures, including a recent influenza vaccination, a mammogram , and colonoscopy. We discussed looking into fuel assistance for heating concerns. Declined referral to for support. Patient was given time to ask questions. All questions were answered to their satisfaction. Assessment and Plan 1. Obesity - Increase physical activity. 2. Hypothyroidism - Maintain levothyroxine. 3. Hyperlipidemia - Improve dietary habits. Cont statin and citrus bergamot 4. Anxiety - Continue bupropion and explore stress coping strategies. Patient Instructions - Continue current medications as prescr ibed. - Begin walking for exercise as planned. - Review and improve dietary habits. - Monitor stress levels and consider str ess-reduction techniques. - RTO 6 mo routine fu, labs 1 week befor e, sooner PRN Consent Patient was informed and verbally consented to the use of an ambient scribe for clinic note documentation during this visit. 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 Brother No problems noted. 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 Housing: [facility] Are you a primary aged or disabled care worker to a significant other at home: Yes Do you presently have visiting nurse or other home services: No Alcohol intake: current Alcohol intake frequency: holidays/special occasions only Patient Tobacco Use Status: Never used Tobacco e-Cigarette/Vaping Use: Never Used Second Hand Smoke Exposure: No service: No Current occupational status: employed 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 1. Little interest or pleasure in doing things: not at all 2. Feeling down, depressed, or hopeless: not at all 3. Trouble falling or staying asleep, or sleeping too much: not at all 4. Feeling tired or having little energy: not at all 5. Poor appetite or overeating: not at all 6. Feeling bad about yourself - or that you are a failure or have let yourself or your family down: not at all 7. Trouble concentrating on things, such as reading the newspaper or watching television: not at all 8. Moving or speaking so slowly that other people could have noticed. Or the opposite - being so fidgety or restless that you have been moving around a lot more than usual: not at all 9. Thoughts that you would be better off or of hurting yourself in some way: not at all Total score: 0 Depression Screening Interpretation: Negative Depression Screening Done: Yes 04245 - PHQ-9 Billing: Yes Source: Developed by Drs. Jerald Sharma, Jordyn Beauchamp, Kaz Rossi and colleagues, with an educational tyra from [employer]. Thrive Questionnaire Date Thrive assessed: 02/17/25 I am a: Patient What is your living situation today?: I have a steady place to live Within the past 12 months, did the food you bought not last and you didn't have the money to get more?: Never true Within the past 12 months, did you worry whether your food would run out before you got money to buy more?: Never true Do you have trouble paying for medicines?: No Do you have trouble getting transportation to medical appointments?: No Do you have trouble paying your heating and electricity bill?: No Do you have trouble taking care of your child, family member or friend?: No Do you have trouble with day-to-day activities such as bathing, preparing meals, shopping, managing finances, etc.?: No Are you currently unemployed and looking for a job?: No Are you interested in more education?: No Please select the resources that you would like help with: None Currently or been in a relationship where the following occur: No concerns reported THRIVE Score: 0 AUDIT C Alcohol Use Questionnaire (AUDIT-C) Score Reviewed/Action Taken: Yes ANJALI-7 AMB Questionnaire ANJALI-7 Date ANJALI - 7 assessed: 02/17/25 Feeling nervous, anxious, or on edge: 0 = Not at all Not being able to stop or control worryin = Not at all Worrying too much about different things: 0 = Not at all Trouble relaxin = Not at all Being so restless that it is hard to sit still: 0 = Not at all Becoming easily annoyed or irritable: 0 = Not at all Feeling afraid as if something awful might happen: 0 = Not at all Total ANJALI-7 score (0-4 normal; 5-9 mild; 10-14 moderate; 15-21 severe): 0 Source: Developed by Drs. Jerald Sharma, Kaz Corrales and colleagues, with an educational tyra from [employer]. ANJALI-7 Assessment Billing ANJALI-7 Assessment Tool: ANJALI-7 Assessment 71586 Physical exam (Primary Care) Vital Signs: Last Vital Signs Temp 97.6 F 02/17/25 09:15 Pulse 88 02/17/25 09:15 Resp 13 02/17/25 09:15 BP 134/72 02/17/25 09:15 Pulse Ox 98 02/17/25 09:15 Oxygen Delivery Method Room Air 02/17/25 09:15 BMI result Body Mass Index 44.9 Tobacco/Smoking Status: Tobacco use Status Tobacco use date assessed 02/17/25 02/17/25 09:17 Patient Tobacco Use Status Never used Tobacco 02/17/25 09:17 e-Cigarette/Vaping Use Never Used 02/17/25 09:17 PHQ-9: PHQ-9 Score PHQ-9: Total score 0 02/17/25 09:30 Depression Screening Interpretation: Negative Thrive Assessment: Date of Thrive Assessment Date Thrive assessed 02/17/25 02/17/25 09:17 Currently or been in a relationship where the following occur: No concerns reported Results Reviewed Results Reviewed: Laboratory 02/12/25 Result Units Range Interpretation Provider Comments White Blood Count 8.3 X10*3/uL (4.8-10.8) Red Blood Count 4.84 X10*6/uL (4.20-5.50) Hemoglobin 13.8 g/dl (12.0-16.0) Hematocrit 42.4 % (37.0-47.0) Mean Corpuscular Volume 87.6 fL (80.0-98.0) Mean Corpuscular Hemoglobin 28.5 pg (27.0-33.0) Mean Corpuscular Hemoglobin Concent 32.5 g/dl (31.0-35.0) Red Cell Distribution Width 13.2 % (11.0-16.0) Platelet Count 334 X10*3/uL (160-400) Mean Platelet Volume 8.8 fL (9.4-12.3) Low Nucleated RBC Absolute Count (auto) 0.000 X10*3/uL (0.0-0.012) Nucleated Red Blood Cells % (auto) 0.0 /100WBC (0.0-0.2) Sodium Level 140 mmol/L (135-145) Potassium Level 4.1 mmol/L (3.3-5.1) Chloride Level 110 mmol/L (96-108) High Carbon Dioxide Level 24 mmol/L (22-29) Anion Gap 10 (12-20) Low Blood Urea Nitrogen 13 mg/dL (9-16) Creatinine 0.89 mg/dL (0.5-1.4) Estimated Creatinine Clearance Calc Not Reportable Estimat Glomerular Filtration Rate > 60 Random Glucose 86 mg/dL (60-115) Estimated Average Glucose 103 mg/dL Hemoglobin A1c Percent 5.2 % (<6.0) Calcium Level 9.4 mg/dL (8.4-10.2) Ferritin 87 ng/mL (10-250) Total Bilirubin 0.4 mg/dL (0.0-1.0) Aspartate Amino Transf (AST/SGOT) 25 U/L (5-31) Alanine Aminotransferase (ALT/SGPT) 27 U/L (0-31) Alkaline Phosphatase 69 U/L (39-117) Total Protein 7.6 g/dL (6.5-8.0) Albumin 4.5 g/dL (3.5-5.0) Triglycerides Level 89 mg/dL (<150) Cholesterol Level 210 mg/dL (<200) High LDL Cholesterol, Calculated 133 mg/dL (<100) High HDL Cholesterol 60 mg/dL (>40) Vitamin B12 Level 402 pg/mL (200-900) 25-Hydroxy Vitamin D Total 67.0 ng/mL (>30) Folate 14.6 ng/mL (> or = 4.0) Thyroid Stimulating Hormone (TSH) 0.80 uIU/mL (0.32-4.0) Urine Creatinine 289.15 mg/dL Urine Microalbumin 11.0 mg/L Urine Microalbumin/Creatinine Ratio 3.8 ug/mg cr (<30) Coding Level of Care Code Est Pt Prev Care 40-64y(43689) Diagnoses Annual physical exam Z00.00 Mixed hyperlipidemia E78.2 Hyperlipidemia type: mixed hyperlipidemia 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 E03.8; E06.3 Hypothyroidism type: due to Salma's thyroiditis Moderate episode of recurrent major depressive disorder F33.1 Major depression episode severity: moderate ANJALI (generalized anxiety disorder) F41.1 Additional Codes ANJALI-7 Assessment Billing - ANJALI-7 Assessment Tool: ANJALI-7 Assessment [id number] ([id number]) PHQ-9 - 90796 - PHQ-9 Billing: Yes ([id number]) Assessment & Plan Assessment & Plan (1) Annual physical exam: Onset Date: ~02/17/25 Code(s): Z00.00 - Encounter for general adult medical examination without abnormal findings Category: Medical (2) Hyperlipidemia: Comment: on pravastatin 10 mg po QD and citrus bergomot Code(s): E78.5 - Hyperlipidemia, unspecified Category: Medical Qualifiers: Hyperlipidemia type: mixed hyperlipidemia Qualified Code(s): E78.2 - Mixed hyperlipidemia (3) Hypothyroidism: Comment: on levothyroxine taking as directed euthyroid on most recent labs managed by Endo Code(s): E03.9 - Hypothyroidism, unspecified Category: Medical Qualifiers: Hypothyroidism type: due to Salma's thyroiditis Qualified Code(s): E03.8 - Other specified hypothyroidism; E06.3 - Autoimmune thyroiditis (4) MDD (major depressive disorder), recurrent episode: Code(s): F33.9 - Major depressive disorder, recurrent, unspecified Category: Medical Qualifiers: Major depression episode severity: moderate Qualified Code(s): F33.1 - Major depressive disorder, recurrent, moderate (5) ANJALI (generalized anxiety disorder): Code(s): F41.1 - Generalized anxiety disorder Category: Medical Plan . Orders: Orders Lipid Panel 6 Months E03.8 - Other specified hypothyroidism, E06.3 - Autoimmune thyroiditis, E78.2 - Mixed hyperlipidemia Comprehensive Met. Panel 6 Months E03.8 - Other specified hypothyroidism, E06.3 - Autoimmune thyroiditis, E78.2 - Mixed hyperlipidemia TSH reflex Free T4 6 Months E03.8 - Other specified hypothyroidism, E06.3 - Autoimmune thyroiditis, E78.2 - Mixed hyperlipidemia Medications: Refilled pravastatin 10 mg PO BEDTIME 90 tabs 1RF E78.5 - Hyperlipidemia, unspecified Discontinued doxycycline hyclate Discontinued Reason: Patient Completed Course 100 mg PO BID 7 days 14 caps 0RF Patient Instructions: Health screenings for women You should visit your health care provider from time to time, even if you are healthy. The purpose of these visits is to: Screen for medical issues Assess your risk for future medical problems Encourage a healthy lifestyle Update vaccinations and other preventive care services Help you get to know your provider in case of an illness Information Even if you feel fine, you should still see your provider for regular checkups. These visits can help you avoid problems in the future. For example, the only way to find out if you have high blood pressure is to have it checked regularly. High blood sugar and high cholesterol levels also may not have any symptoms in the early stages. A simple blood test can check for these conditions. There are specific times when you should see your provider or receive specific health screenings. The [place] Preventive Services Task Force publishes a list of recommended screenings. Below are screening guidelines for women ages 18 to 39. BLOOD PRESSURE SCREENING Your blood pressure should be checked at least once every 3 to 5 years if: Your blood pressure is in the normal range (top number less than 120 mm Hg and bottom number less than 80 mm Hg) You don't have risk factors for high blood pressure Ask your provider if you need your blood pressure checked more often if: The top number is 120 to 129 mm Hg or the bottom number is 70 to 79 mm Hg You have diabetes, heart disease, kidney problems, are overweight, or have certain other health conditions You have a first-degree relative with high blood pressure You are Black You had high blood pressure during a If the top number is 130 mm Hg or greater or the bottom number is 80 mm Hg or greater, this is considered stage 1 hypertension. Schedule an appointment with your provider to learn how you can reduce your blood pressure. Watch for blood pressure screenings in your area. Ask your provider if you can stop in to have your blood pressure checked. BREAST CANCER SCREENING Experts do not agree about the benefits of breast self-exams in finding breast cancer or saving lives. Talk to your provider about what is best for you. A screening mammogram is not recommended for most women under age 40. Your provider may discuss and recommend mammograms, MRI scans, or ultrasounds if you have an increased risk for breast cancer, such as: A mother or sister who had breast cancer at a young age (most often starting screening earlier than the age the close relative was diagnosed) You carry a high-risk genetic marker CERVICAL CANCER SCREENING Cervical cancer screening should start at age 21 years unless your provider ad vises otherwise. After the first test: Women ages 21 through 29 should have a Pap test every 3 years. Exoprts do not agree on whether HPV testing is recommended for this age group. Women ages 30 through 65 should be screened with either a Pap test every 3 years or the HPV test every 5 years or both tests every 5 years (called cotesting ). Women who have been treated for precancer (cervical dysplasia) should continue to have Pap tests for 20 years after treatment or until age 65, whichever is longer. If you have had your uterus and cervix removed (total hysterectomy), and you have not been diagnosed with cervical cancer or precancer (high grade cervical neoplasia), you do not need cervical cancer screening. CHOLESTEROL SCREENING Cholesterol screening should begin at: Age 45 for women with no known risk factors for coronary heart disease Age 20 for women with known risk factors for coronary heart disease Repeat cholesterol screening should take place: Every 5 years for women with normal cholesterol levels More often if changes occur in lifestyle (including weight gain and diet) More often if you have diabetes, heart disease, kidney problems, or certain other conditions DIABETES SCREENING You should be screened for diabetes starting at age 35 and then repeated every 3 years if you have no risk factors for diabetes. Screening may need to start earlier and be repeated more often if you have other risk factors for diabetes, such as: You have a first degree relative with diabetes. You are overweight or have obesity. You have high blood pressure, prediabetes, or a history of heart disease. Screening for diabetes should be done if you are planning to become and you are overweight and have other risk factors such as high blood pressure. DENTAL EXAM Go to the dentist once or twice every year for an exam and cleaning. Your dentist will evaluate if you need more frequent visits. EYE EXAM Have an eye exam every 5 to 10 years before age 40. If you have vision problems, have an eye exam every 2 years or more often if recommended by your provider. You should have an eye exam that includes an examination of your retina (back of your eye) at least every year if you have diabetes. IMMUNIZATIONS Commonly needed vaccines include: Flu shot: get one every year. COVID-19 vaccine: ask your provider what is best for you. Tetanus-diphtheria and acellular pertussis (Tdap) vaccine: have one at or after age 19 as one of your tetanus-diphtheria vaccines if you did not receive it as an adolescent. Tetanus-diphtheria: have a booster (or Tdap) every 10 years. Varicella vaccine: receive 2 doses if you never had chickenpox or the varicella vaccine. Hepatitis B vaccine: receive 2, 3, or 4 doses, depending on your exact circumstances. Measles, mumps, and rubella (MMR) vaccine: receive 1 to 2 doses if you are not already immune to MMR. Your provider can tell you if you are immune. Ask your provider about the human papillomavirus (HPV) vaccine if: You have not received the HPV vaccine in the past You have not completed the full vaccine series (you should catch up on this shot) Ask your provider if you should receive other immunizations if you have certain health problems that increase your risk for some diseases such as pneumonia. INFECTIOUS DISEASE SCREENING Women who are sexually active should be screened for chlamydia and gonorrhea up until age 25. Women 25 years and older should be screened for chlamydia and gonorrhea if at high risk. Screening for hepatitis C: All adults ages 18 to 79 should get a one-time test for hepatitis C. people should be screened at every . Screening for human immunodeficiency virus (HIV): All people ages 15 to 65 should get a one-time test for HIV. Depending on your lifestyle and medical history, you may also need to be screened for infections such as syphilis and HIV, as well as other infections. PHYSICAL EXAM All adults should visit their provider from time to time, even if they are healt hy. The purpose of these visits is to: Screen for disease Assess your risk of future medical problems Encourage a healthy lifestyle Update your vaccinations and other preventive care services Maintain a relationship with a provider in case of an illness Your height, weight, and BMI should be checked at every exam. During your exam, your provider may ask you about: Depression and anxiety Diet and exercise Alcohol and tobacco use Safety issues, such as using seat belts, smoke detectors, and intimate partner violence Your medicines and risk for interactions SKIN SELF-EXAM Your provider may check your skin for signs of skin cancer, especially if you're at high risk, such as if you: Have had skin cancer before Have close relatives with skin cancer Have a weakened immune system OTHER SCREENING Talk with your provider about colon cancer screening if you have a strong family history of colon cancer or polyps, or if you have had inflammatory bowel disease or polyps yourself. Routine bone density screening of women under 40 is not recommended.
[2025-02-17 09:15] VITALS: BP 134/72; PULSE 88; RESP 13; TEMP 36.4; O2SAT 98; BMI 44.9
== END 2025-02-17 10:12 | disposition home or self-care (01) ==
LOC: HO.HMCFM 09:10
PROVIDERS: PCP Nurse Practitioner Family; Visit Provider Nurse Practitioner Family
DX: Z00.00 Encounter for general adult medical examination without abnormal findings (principal); E78.2 Mixed hyperlipidemia; E03.8 Other specified hypothyroidism; E06.3 Autoimmune thyroiditis; F33.1 Major depressive disorder, recurrent, moderate; F41.1 Generalized anxiety disorder

== ENCOUNTER → 2025-02-17 09:09 | Outpatient (BNVA) | payer OTHER, SELFPAY | PROVIDERS: PCP Nurse Practitioner Family; Visit Provider Nurse Practitioner Family | DX: Z00.00 Encounter for general adult medical examination without abnormal findings (principal); E78.2 Mixed hyperlipidemia; E66.9 Obesity, unspecified; E03.8 Other specified hypothyroidism; E06.3 Autoimmune thyroiditis; F33.1 Major depressive disorder, recurrent, moderate; F41.1 Generalized anxiety disorder; Z68.41 Body mass index [BMI] 40.0-44.9, adult | CPT/HCPCS: 96127 ==

== ENCOUNTER 2025-03-09 07:44 | Outpatient (AMB) | payer OTHER, SELFPAY ==
--- NOTE | 2025-03-09 07:45 | MHC.OFFVIS ---
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: Jewel Cupping Machine Operator Present (Eliana) Allergies oxycodone Allergy (Intermediate, Verified 03/09/25 07:46) Itching penicillin V Allergy (Intermediate, Verified 03/09/25 07:46) rash Sulfa (Sulfonamide Antibiotics) Allergy (Intermediate, Verified 03/09/25 07:46) rash acetaminophen (From Vicodin) Adverse Reaction (Severe, Verified 03/09/25 07:46) Flushing hydrocodone (From Vicodin) Adverse Reaction (Severe, Verified 03/09/25 07:46) Flushing atorvastatin Adverse Reaction (Intermediate, Verified 03/09/25 07:46) Headache HPI Comments Details: Patient is a premenopausal woman presenting for annual examination. Vb Developer concerns: none. Doing well on OCPs for cycling purposes. Regular monthly menses. Currently is sexually active. She denies vaginal itching or irritation. STI screening offered; she accepts. She tries to eat healthy and stays active with exercise. She denies any contraindications to control such as: migraines with aura, history of DVT or pulmonary emboli, high blood pressure, liver disease, thrombolic disorders, Lupus, +JOSE M, breast cancer, or smoking. Family history of breast and colon cancer. Last pap smear 2023, positive HPV, negative cytology. Mammogram: 2024. [facility] Medical History Depression Anxiety Tubular adenoma of colon Cubital tunnel syndrome, bilateral Obesity Numbness of left hand De Quervain's tenosynovitis, left Osteopenia Mass of right breast penitentiary (current) use of 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 Vitamin D deficiency Hypogonadotropic hypogonadism Impingement syndrome of right shoulder Non-toxic multinodular goiter Hypothyroidism Hyperlipidemia Mammogram normal Mixed hyperlipidemia Salma's thyroiditis Thyromegaly Surgical History Hx of colonoscopy (03/2024) History of carpal tunnel surgery Hx laparoscopic cholecystectomy Family History Father Cancer of kidney FH: HTN (hypertension) Mother Breast cancer Brother No problems noted. Brother No problems noted. 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 Housing: [facility] Are you a primary critical care educator to a significant other at home: Yes Do you presently have visiting nurse or other home services: No Alcohol intake: current Alcohol intake frequency: holidays/special occasions only Patient Tobacco Use Status: Never used Tobacco e-Cigarette/Vaping Use: Never Used Second Hand Smoke Exposure: No service: No Current occupational status: employed 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 Current occupational exposures/hazards: No Cognitive needs: No Hearing needs: No Vision needs: Yes Female Reproductive History Menstrual control method: pills Total pregnancies: 1 Full term: 1 Number of Living Children: 1 Date of last pap smear: 02/25/24 (+hpv) History of abnormal pap smear: Yes Date of Mammogram: 08/07/24 (Birad 1) Review of Systems Const All systems reviewed & are unremarkable except as noted in HPI and below Reports as per HPI Eyes Reports no additional complaints ENT Reports no additional complaints Card Reports no additional complaints Resp Reports no additional complaints GI Reports as per HPI and Reports no additional complaints Reports as per HPI Musc Reports no additional complaints Skin/Breast Reports as per HPI Neuro Reports no additional complaints Psych Reports no additional complaints Endo Reports no additional complaints Sadiq/Lymph Reports no additional complaints Aller/Immun Reports no additional complaints Physical Exam Vital Signs: Last Vital Signs BP 110/76 03/09/25 07:46 BMI result Body Mass Index 44.3 Const General: cooperative, healthy appearing, no acute distress, well developed and alert Orientation/consciousness: patient oriented x3 HEENT Head: Yes normal to inspection Eyes General: appearance normal, both eyes and all related structures Neck Neck: Yes normal visual inspection Thyroid: Thyroid normal Chest Chest palpation & inspection: normal inspection of the chest and other (no puckering, dimpling, peau de orange, retraction, discharge, masses) Breast/axilla inspection: normal inspection of the breasts Breast/axilla palpation: normal palpation of the breasts Resp Effort & Inspection: normal respiratory effort GI Inspection: Yes normal to inspection Palpation (GI): Soft to palpation Rectal Exam - Female: deferred General: Yes bladder normal to palpation External Female Exam: normal external appearance and normal appearance of the urethra Speculum Exam - Vagina: normal appearance of the vagina, normal palpation and normal vaginal discharge Speculum Exam - Cervix: normal appearance of the cervix, normal palpation and Other cervical findings present (Bled slightly with Pap) Bimanual exam- vagina & uterus: normal bimanual exam, normal palpation, uterine size normal, bladder normal to palpation, normal palpation and non-tender Bimanual Exam- Adnexa, other: no masses Skin General skin exam: no rashes or lesions noted Rashes: no rashes Neuro General: patient oriented x3 Cognition (Neuro): normal cognition Extrem General: Yes normal to inspection Psych Attitude: cooperative Thought process: Normal thought process present Assessment & Plan Assessment & Plan (1) Abnormal Pap smear of cervix: Comment: 2023-HPV positive, cytology negative, repeat 2024... Code(s): R87.619 - Unspecified abnormal cytological findings in specimens from cervix uteri Category: Medical Qualifiers: Abnormal Pap type: other Qualified Code(s): R87.618 - Other abnormal cytological findings on specimens from cervix uteri Plan: Pap obtained await results for final plan of care. The patient expressed understanding and agreement with the plan of care. All of her questions and concerns were addressed to the best of my ability. (2) Well woman exam with routine gynecological exam: Code(s): Z01.419 - Encounter for gynecological examination (general) (routine) without abnormal findings Category: Medical Plan Discussed: Current recommendations for pap smears per ASCCP guidelines. Breast awareness and periodic breast exams. Mammogram yearly. Maintain a healthy lifestyle including a well balanced diet and routine exercise. control hormone use warnings: go to ER if and loss of vision, blindness, severe headache, chest pain or difficulty breathing, severe abdominal pain, or any pain or swelling in an extremity. Patient verbalizes understanding and agrees to the plan of care. She was given opportunity to ask questions and all questions were answered to the best of my ability. RTO in one year for annual vp of global marketing examination. This note is constructed using voice recognition software. While every effort has been made to ensure accuracy, drawbench operator errors may have been included. Orders: Orders Pap Smear Today Z01.419 - Encounter for gynecological examination (general) (routine) without abnormal findings HPV High risk Today Z01.419 - Encounter for gynecological examination (general) (routine) without abnormal findings Medications: New levonorgestrel-ethinyl estrad 0.15 mg-30 mcg (91) 1 tab PO BEDTIME 91 ea 4RF Coding Level of Care Code Est Pt Prev Care 40-64y(29008) Diagnoses Other abnormal cytological finding of specimen from cervix R87.618 Abnormal Pap type: other Well woman exam with routine gynecological exam Z01.419
[2025-03-09 07:46] VITALS: BP 110/76; BMI 44.3
== END 2025-03-09 08:29 | disposition home or self-care (01) ==
LOC: HO.HWS 07:44
PROVIDERS: PCP Nurse Practitioner Family; Visit Provider Advanced Practice Midwife
DX: Z01.419 Encounter for gynecological examination (general) (routine) without abnormal findings (principal); R87.618 Other abnormal cytological findings on specimens from cervix uteri
CPT/HCPCS: 99396; 99459

== ENCOUNTER 2025-03-09 07:44 | Outpatient (REF) | payer OTHER, SELFPAY | END 2025-03-09 07:45 | disposition home or self-care (01) | LOC: HO.LNP 07:44 | PROVIDERS: PCP Nurse Practitioner Family; Visit Provider Advanced Practice Midwife | DX: Z01.419 Encounter for gynecological examination (general) (routine) without abnormal findings (principal); R87.618 Other abnormal cytological findings on specimens from cervix uteri | CPT/HCPCS: 87626; 88175 ==

== ENCOUNTER 2025-04-14 13:04 | Outpatient (AMB) | payer OTHER, SELFPAY ==
[2025-04-14 13:09] VITALS: BP 144/90; BMI 44.3
--- NOTE | 2025-04-14 13:09 | A.OFFVIS_ITS ---
Vital Signs 04/14/25 13:09 Height 5 ft 3 in Weight 250 lb BMI 44.3 BP 144/90 H Intake Visit Reasons: Colposcopy Lot Boss Required: No Information Interpreted: non-clinical & clinical Merchandising Coordinator: Merchandising Coordinator Present (Radha NG) Accompanied by: Self / Same As Patient Allergies oxycodone Allergy (Intermediate, Verified 04/14/25 13:19) Itching penicillin V Allergy (Intermediate, Verified 04/14/25 13:19) rash Sulfa (Sulfonamide Antibiotics) Allergy (Intermediate, Verified 04/14/25 13:19) rash acetaminophen (From Vicodin) Adverse Reaction (Severe, Verified 04/14/25 13:19) Flushing hydrocodone (From Vicodin) Adverse Reaction (Severe, Verified 04/14/25 13:19) Flushing atorvastatin Adverse Reaction (Intermediate, Verified 04/14/25 13:19) Headache Is last menstrual period known: Yes Last menstrual period: 04/11/25 HPI Comments Details: Presenting referred from Brenna Asher CNM regarding abnormal Pap smear done on 03/10/2025 which showed the following: ABNORMAL PAP TEST. Satisfactory for evaluation, with rare atypical squamous cells of undetermined significance (ASC-US). Reactive cellular changes. 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 Brother No problems noted. 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 [facility]: [facility] Are you a primary physician locums urgent care to a significant other at home: Yes Do you presently have visiting nurse or other home services: No Alcohol intake: current Alcohol intake frequency: holidays/special occasions only Patient Tobacco Use Status: Never used Tobacco e-Cigarette/Vaping Use: Never Used Second Hand Smoke Exposure: No service: No Current occupational status: employed 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 Current occupational exposures/hazards: No Cognitive needs: No Hearing needs: No Vision needs: Yes Female Reproductive History Menstrual Date of last menstrual period: 04/11/25 Review of Systems Const All systems reviewed & are unremarkable except as noted in HPI and below Reports as per HPI and Reports no additional complaints GI Reports no additional complaints Reports no additional complaints Physical Exam Vital Signs: Last Vital Signs BP 144/90 H 04/14/25 13:09 BMI result Body Mass Index 44.3 Office Procedures Colposcopy Colposcopy: Pre-Procedure Counseling: Before beginning the procedure, I conducted comprehensive counseling with the patient. We thoroughly discussed the procedure itself, including its details, alternatives, and all associated risks. This included but not limited to the following complications such as bleeding, infection, and injury to the vagina, bladder, and vessels, as well as the potential need for transfusion with all its associated risks. Subsequently, the patient sign the consent. Pap smear result: LSIL. Urine test in office = Negative Procedure: During the procedure, the following steps were performed: A speculum was inserted, and acetic acid was applied. Colposcopy was conducted, allowing visualization of the transformation zone. Acetowhite lesions were identified at the 4+ 6+ 7+ 11+ 1 o'clock position. Cervical biopsies were obtained from the 7+3 o'clock position, followed by an endocervical curettage (ECC). Vaginoscopy of the upper vagina revealed no evidence of aceto-white lesions. Hemostasis was achieved using Monsel solution, and the patient tolerated the procedure well. Post-Procedure Instructions: The patient was advised to promptly contact the office or the after hours answering service or go to the emergency room if experiencing a temperature exceeding 100.4?F, abdominal pain, nausea/vomiting, or bleeding. Additionally, the patient was instructed to abstain from vaginal intercourse and bathtub use. The patient confirmed understanding of these instructions. Discharge Instructions: The patient was instructed to schedule a follow-up appointment in 2 weeks for further evaluation and management. Please note that this note was generated using a voice recognition program, and errors may have occurred during complaint supervisor. 62753-Cosstudio of cervix including upper vagina with biopsy and ECC Procedure code (CPT) selection complete Results AMB Test Urine AMB Test Urine Negative Last Edit by Radha Spencer CMA on 13:21 Results Reviewed Results Reviewed: Laboratory Last Values [facility] Negative 04/14/25 13:20 Assessment & Plan Assessment & Plan (1) ASCUS with positive high risk HPV cervical: Comment: 02/25 negative Pap HPV positive, HPV 16/18 negative 03/29 ascus HPV positive, HPV 16/18 negative Code(s): R87.610 - Atypical squamous cells of undetermined significance on cytologic smear of cervix (ASC-US); R87.810 - Cervical high risk human papillomavirus (HPV) DNA test positive Category: Medical Plan: Discussed with the patient the result of her abnormal pap, its significance, risk of progression, persistence, and regression. the false positive/negative rate of a Pap smear as a screening test in detecting cervical cancer and the indication for a diagnostic test -colposcopy, biopsy, endocervical curettage. The patient verbalized understanding and agreed with the plan, all questions answered. Colposcopy, biopsy /ECC done, see procedure note Orders: Orders AMB HCG Urine Test Today Z32.02 - Encounter for test, result negative AMB Colposcopy Today R87.610 - Atypical squamous cells of undetermined significance on cytologic smear of cervix (ASC-US), R87.810 - Cervical high risk human papillomavirus (HPV) DNA test positive Coding Level of Care Code Procedure Only Diagnoses ASCUS with positive high risk HPV cervical R87.610; R87.810 CPT Codes Colposcopy - CPT: 55407-Ytoyxonlg of cervix including upper vagina with biopsy and ECC ([id number])
== END 2025-04-14 13:38 | disposition home or self-care (01) ==
LOC: HO.HWS 13:05
PROVIDERS: PCP Nurse Practitioner Family; Visit Provider Obstetrics & Gynecology
DX: R87.610 Atypical squamous cells of undetermined significance on cytologic smear of cervix (ASC-US) (principal); R87.810 Cervical high risk human papillomavirus (HPV) DNA test positive; Z32.02 Encounter for pregnancy test, result negative
CPT/HCPCS: 57454

== ENCOUNTER 2025-04-14 13:04 | Outpatient (REF) | payer OTHER, SELFPAY | END 2025-04-14 13:05 | disposition home or self-care (01) | LOC: HO.LNP 13:04 | PROVIDERS: PCP Nurse Practitioner Family; Visit Provider Obstetrics & Gynecology | DX: Z32.02 Encounter for pregnancy test, result negative (principal); R87.610 Atypical squamous cells of undetermined significance on cytologic smear of cervix (ASC-US); R87.810 Cervical high risk human papillomavirus (HPV) DNA test positive | CPT/HCPCS: 88305 ==

== ENCOUNTER 2025-04-27 07:22 | Outpatient (AMB) | payer OTHER, SELFPAY ==
[2025-04-27 07:34] VITALS: BP 122/74; BMI 44.3
--- NOTE | 2025-04-27 07:34 | MHC.OFFVIS ---
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 Apprentice Required: No Information Interpreted: non-clinical & clinical Accompanied by: Self / Same As Patient Allergies oxycodone Allergy (Intermediate, Verified 04/27/25 07:34) Itching penicillin V Allergy (Intermediate, Verified 04/27/25 07:34) rash Sulfa (Sulfonamide Antibiotics) Allergy (Intermediate, Verified 04/27/25 07:34) rash acetaminophen (From Vicodin) Adverse Reaction (Severe, Verified 04/27/25 07:34) Flushing hydrocodone (From Vicodin) Adverse Reaction (Severe, Verified 04/27/25 07:34) Flushing atorvastatin Adverse Reaction (Intermediate, Verified 04/27/25 07:34) Headache HPI Comments Details: Presenting post colpo for follow-up. The patient is doing well with no complaints. The pathology showed the following: A. Endocervix, curettage: Fragments of benign endocervical glands; negative for squamous intraepithelial lesion. B. Cervix, 1 o'clock, biopsy: Acute cervicitis with reactive epithelial changes; negative for squamous intraepithelial lesion. C. Cervix, 4 o'clock, biopsy: Acute and chronic cervicitis with reactive epithelial changes; negative for squamous intraepithelial lesion. D. Cervix, 6 o'clock, biopsy: Acute cervicitis with reactive epithelial changes; negative for squamous intraepithelial lesion. E. Cervix, 7 o'clock, biopsy: Chronic cervicitis with reactive epithelial changes; negative for squamous intraepithelial lesion. F. Cervix, 11 o'clock, biopsy: Squamous mucosa with mild acute inflammation and reactive epithelial changes; no endocervical component seen; negative for squamous intraepithelial lesion. COMMENT: The atypical cells noted in the patient's previous Pap smear ([id number]; ASCUS; HPV+) may be represented by the reactive epithelial changes seen in the current biopsy materia [facility] Medical History (Updated 04/14/25 @ 13:20 by Ric Jean MD) ASCUS with positive high risk HPV cervical Depression Anxiety Tubular adenoma of colon Cubital tunnel syndrome, bilateral Obesity Numbness of left hand De Quervain's tenosynovitis, left Osteopenia Mass of right breast snf (current) use of 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 Vitamin D deficiency Hypogonadotropic hypogonadism Impingement syndrome of right shoulder Non-toxic multinodular goiter Hypothyroidism Hyperlipidemia Mammogram normal Mixed hyperlipidemia Salma's thyroiditis Thyromegaly Surgical History Hx of colonoscopy (03/2024) History of carpal tunnel surgery Hx laparoscopic cholecystectomy Family History Father Cancer of kidney FH: HTN (hypertension) Mother Breast cancer Brother No problems noted. Brother No problems noted. 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 Housing: [facility] Are you a primary adult day care worker to a significant other at home: Yes Do you presently have visiting nurse or other home services: No Alcohol intake: current Alcohol intake frequency: holidays/special occasions only Patient Tobacco Use Status: Never used Tobacco e-Cigarette/Vaping Use: Never Used Second Hand Smoke Exposure: No service: No Current occupational status: employed 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 Current occupational exposures/hazards: No Cognitive needs: No Hearing needs: No Vision needs: Yes Review of Systems Const All systems reviewed & are unremarkable except as noted in HPI and below Reports as per HPI and Reports no additional complaints GI Reports no additional complaints Reports no additional complaints Physical Exam Vital Signs: Last Vital Signs BP 122/74 04/27/25 07:34 BMI result Body Mass Index 44.3 Assessment & Plan Assessment & Plan (1) ASCUS with positive high risk HPV cervical: Comment: 02/25 negative Pap HPV positive, HPV 16/18 negative 03/29 ascus HPV positive, HPV 16/18 negative Code(s): R87.610 - Atypical squamous cells of undetermined significance on cytologic smear of cervix (ASC-US); R87.810 - Cervical high risk human papillomavirus (HPV) DNA test positive Category: Medical Plan: Discussed with the patient the pathology results of the colposcopy biopsies & endocervical curettage . Discussed with the patient the sensitivity specificity, positive and negative predictive value in detecting cervical cancer in addition discussed the regression, persistence and progression rates. Recommended co-testing in 12 months, if cytology and or HPV are abnormal will proceed was colposcopy biopsy and endocervical curettage. Instructions given to the patient to schedule a co test appointment in 1 year. All questions answered the patient verbalized understanding. Coding Level of Care Code Est Pt Level 3 (29588) Diagnoses ASCUS with positive high risk HPV cervical R87.610; R87.810
== END 2025-04-27 07:45 | disposition home or self-care (01) ==
PROVIDERS: PCP Nurse Practitioner Family; Visit Provider Obstetrics & Gynecology
DX: R87.610 Atypical squamous cells of undetermined significance on cytologic smear of cervix (ASC-US) (principal); R87.810 Cervical high risk human papillomavirus (HPV) DNA test positive
CPT/HCPCS: 99213